=== PATIENT | male | born 1955 | race Two or more races ===

== ENCOUNTER 2024-04-18 09:35 | Inpatient (IN) | payer MEDICARE ==
[~2024-04-18] VITALS: Ht 188 cm; Wt 95.5 kg
--- NOTE | 2024-04-18 10:03 | ED.PDOC ---
General HPI Comments 69 year old male presents to the ED with chief complaint of hematuria. Patient reports that he started to experience hematuria since last night with no pain. Patient relays he had similar hematuria 2 years ago and was diagnosed with cancer of the left kidney, eventually having a left nephrectomy performed. Patient denies any dysuria, abdominal pain, fever, chills, dizziness, or N/V/D. Chief Complaint: Urinary Time Seen by MD: 09:57 Reviewed notes: Nurses Notes, Medications, Allergies Allergies: Coded Allergies: NO KNOWN ALLERGIES (Unverified , 01/06/18) Home Meds No Active Prescriptions or Reported Meds Information Source: Patient Mode of Arrival: Ambulatory Severity: Moderate Inability to void: None Timing: Hours Duration: Since onset Prehospital treatment: None Onset: Spontaneous Symptoms: Hematuria History of: None Location: None Penile discharge: None Modifying factors: None associated signs and symptoms: Hematuria Past Medical History PAST MEDICAL HISTORY: Cancer (Kidney), High Lipids Surgical History (Other): Left hip replacement, Left nephrectomy Family History Family History: Reviewed,noncontributory to illness, Unknown Social History Smoker: Cigarettes Alcohol: Occasionally Drugs: Denies Drug Use Lives In: Home Constitutional: denies: chills, diaphoresis, fatigue, fever, malaise, sweats, weakness, others EENTM: denies: blurred vision, double vision, ear bleeding, ear discharge, ear drainage, ear pain, ear ringing, eye pain, eye redness, hearing loss, mouth pain, mouth swelling, nasal discharge, nose bleeding, nose congestion, nose pain, photophobia, tearing, throat pain, throat swelling, voice changes, others Respiratory: denies: cough, hemoptysis, orthopnea, SOB at rest, shortness of breath, SOB with excertion, stridor, wheezing, others Cardiovascular: denies: chest pain, dizzy spells, diaphoresis, Dyspnea on exertion, edema, irregular heart beat, left arm pain, lightheadedness, palpitations, PND, syncope, others Gastrointestinal: denies: abdomen distended, abdominal pain, blood streaked bowels, constipated, diarrhea, dysphagia, difficulty swallowing, hematemesis, melena, nausea, poor appetite, poor fluid intake, rectal bleeding, rectal pain, vomiting, others Genitourinary: reports: hematuria; denies: burning, dysuria, flank pain, frequency, incontinence, penile discharge, penile sore, pain, testicle pain, testicle swelling, urgency, others Neurological: denies: dizziness, fainting, headache, left sided numbness, left sided weakness, numbness, paresthesia, pre-existing deficit, right sided numbness, right sided weakness, seizure, speech problems, tingling, tremors, weakness, others Musculoskeletal: denies: back pain, gout, joint pain, joint swelling, muscle pain, muscle stiffness, neck pain, others Integumetry: denies: bruises, change in color, change in hair/nails, dryness, laceration, lesions, lumps, rash, wounds, others Allergic/Immunocompromised: denies: Difficulty Healing, Frequent Infections, Hives, Itching, others Hematologic/Lymphatic: denies: anemia, blood clots, easy bleeding, easy bruising, swollen glands, others Endocrine: denies: excessive hunger, excessive sweating, excessive thirst, excessive urination, flushing, intolerance to cold, intolerance to heat, unexplained weight gain, unexplained weight loss, others Psychiatric: denies: anxiety, bipolar disorder, depression, hopeless, panic disorder, schizophrenia, sleepless, suicidal, others All Other Systems: Reviewed and Negative Physical Exam General Appearance: Moderate Distress, Normal HEENT: Normal ENT Inspection, PERRL/EOMI Neck: Full Range of Motion, Non-Tender, Normal, Normal Inspection Respiratory: Chest Non-Tender, Lungs Clear, No Accessory Muscle Use, No Respiratory Distress, Normal Breath Sounds Cardiovascular: No Edema, No JVD, No Murmur, No Gallop, Normal Peripheral Pulses, Regular Rate/Rhythm Breast Exam: Deferred Gastrointestinal: No Organomegaly, Non Tender, No Pulsatile Mass, Normal Bowel Sounds, Soft Genitalia: Deferred Pelvic: Deferred Rectal: Deferred Extremities: No calf tenderness, Normal capillary refill, Normal inspection, Normal range of motion, Non-tender, No pedal edema Musculoskeletal : Apperance: Normal Neurologic: Alert, 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 Was a procedure done?: No Differential Diagnosis Kidney stone (Female): Musculoskeletal pain, Urinary obstruction, Urolithiasis X-Ray, Labs, Meds, VS Vital Signs Date Time Temp Pulse Resp B/P (MAP) Pulse Ox O2 Delivery O2 Flow Rate FiO2 04/18/24 12:00 59 16 97 Room Air* 0 21 04/18/24 11:30 98.8 59 16 114/83 (93) 97 98.8 04/18/24 09:51 98.1 68 18 122/68 (86) 99 Lab Test 04/18/24 10:22 04/18/24 10:06 Range/Units White Blood Count 7.1 4.4-10.8 10^3/uL Red Blood Count 3.99 L 4.5-5.90 10^6/uL Hemoglobin 12.9 L 13.5-17.5 g/dL Hematocrit 37.6 L 41.0-53.0 % Mean Corpuscular Volume 94.3 80.0-100.0 fL Mean Corpuscular Hemoglobin 32.3 H 28.0-32.0 pg Mean Corpuscular Hemoglobin Concent 34.3 32.0-36.0 g/dL Red Cell Distribution Width 13.3 11.8-14.3 % Platelet Count 138 L 140-450 10^3/uL Mean Platelet Volume 8.3 6.9-10.8 fL Neutrophils (%) (Auto) 66.8 37.0-80.0 % Lymphocytes (%) (Auto) 24.4 10.0-50.0 % Monocytes (%) (Auto) 6.4 0.0-12.0 % Eosinophils (%) (Auto) 2.0 0.0-7.0 % Basophils (%) (Auto) 0.4 0.0-2.0 % Neutrophils # (Auto) 4.8 1.6-8.6 10 ^3/uL Lymphocytes # (Auto) 1.7 0.4-5.4 10 ^3/uL Monocytes # (Auto) 0.5 0-1.3 10 ^3/uL Eosinophils # (Auto) 0.1 0-0.8 10 ^3/uL Basophils # (Auto) 0 0-0.2 10 ^3/uL Nucleated Red Blood Cells 0.1 % Sodium Level 136 136-145 mmol/L Potassium Level 4.7 3.5-5.1 mmol/L Chloride Level 100 98-107 mmol/L Carbon Dioxide Level 29 20-31 mmol/L Anion Gap 7 5-15 Blood Urea Nitrogen 27 H 9-23 mg/dL Creatinine 2.01 H 0.700-1.30 mg/dL Glomerular Filtration Rate Calc 35 >90 mL/min BUN/Creatinine Ratio 13.4 10.0-20.0 Serum Glucose 505 *H 74-106 mg/dL Calcium Level 10.4 8.7-10.4 mg/dL Urine Color Light-orange Yellow Urine Clarity Turbid H Clear Urine pH 5.5 5.0-9.0 Urine Specific [place] 1.025 1.001-1.035 Urine Protein 1+ H Negative Urine Ketones Negative Negative Urine Blood 3+ H Negative /uL Urine Nitrite Negative Negative Urine Bilirubin Negative Negative Urine Urobilinogen Normal Negative mg/dL Urine Leukocyte Esterase 2+ Negative /uL Urine RBC 133 0 - 3 /hpf Urine WBC 264 0 - 3 /hpf Urine WBC Clumps Present None Seen /hpf Urine Squamous Epithelial Cells Few <5 /hpf Urine Bacteria None seen None Seen /hpf Urine Hyaline Casts Few 0 - 2 /lpf Urine Glucose 4+ H Normal mg/dL Current Medications Medications (Trade) Dose Ordered Sig/Jessica Route Start Time Stop Time Status Last Admin Piperacillin Sod/ Tazobactam Sod 100 ml @ 100 mls/hr ONCE ONCE IV 04/18/24 11:45 04/18/24 12:44 DC 04/18/24 11:54 Insulin Human Regular (InsuLIN R) 10 units ONCE ONCE IV 04/18/24 11:45 04/18/24 11:46 DC 04/18/24 11:56 Sodium Chloride 1,000 ml @ 1,000 mls/hr Q1H ONCE IV 04/18/24 11:45 04/18/24 12:44 DC 04/18/24 11:55 Patient alert. Complaining of bright red blood per urine. Vitals stable. Answering all questions. Kidney function elevated. He does not take care himself. WBC within normal limits. Blood sugar elevated. Establish intravenous access. Was given fluids. Was given Zosyn. Possible urinary tract infection. Reviewed his history. Was given insulin. Explained to the patient. Continue cardiac monitoring. Time of 1ST Reevaluation: 10:57 Reevaluation 1ST: Unchanged Patient Education/Counseling: Diagnosis, Treatment Family Education/Counseling: No Family Present Additional Information I reviewed the following notes from patient's past medical encounters: Left hip fracture 01/06/18 The following tests were ordered, and results were reviewed by me: BMP, UA, CBC I discussed treatment and results with medical personnel. Departure 1 Departure Time of Disposition: 11:32 Impression: Primary Impression: Uncontrolled diabetes mellitus Qualified Codes: E13.65 - Other specified diabetes mellitus with hyperglycemia Disposition: ADMITTED INPATIENT Admit to: Med Surg Condition: Guarded e-Prescriptions No Active Prescriptions or Reported Meds Critical Care Note Critical Care Time?: Yes (45 min-critical care time only) Stability Stability form required: No Heart Score Heart Score: Heart Score Response (Comments) Value History N/A 0 EKG N/A 0 Age N/A 0 Risk Factors N/A 0 Troponin N/A 0 Total 0 I personally scribed for JOSE FRANCISCO ALVARENGA MD ([email or web address]) on 04/18/24 at 10:03. Electronically submitted by Edu Maya ([email or web address]). I personally scribed for JOSE FRANCISCO ALVARENGA MD ([email or web address]) on 04/18/24 at 10:03. Electronically submitted by Edu Maya ([email or web address]). I personally scribed for JOSE FRANCISCO ALVARENGA MD ([email or web address]) on 04/18/24 at 17:13. Electronically submitted by Haylee Quijano ([email or web address]). JOSE FRANCISCO ALVARENGA MD Apr 18, 2024 10:03
[2024-04-18 10:48] LABS: Chloride 100 mmol/L (98-107)
[2024-04-18 10:49] LABS: Potassium 4.7 mmol/L (3.5-5.1)
[2024-04-18 10:50] LABS: Anion Gap 7 (5-15); Carbon Dioxide 29 mmol/L (20-31)
[2024-04-18 10:53] LABS: Calcium 10.4 mg/dL (8.7-10.4); Sodium 136 mmol/L (136-145)
[2024-04-18 10:56] LABS: BUN/Creatinine Ratio 13.4 (10.0-20.0); Blood Urea Nitrogen 27 mg/dL (9-23); Glucose 505 mg/dL (74-106)
[2024-04-18 10:56] LABS: Urine Bacteria None Seen /hpf (None Seen)
[2024-04-18 10:58] LABS: Basophils # (auto) 0 10 ^3/uL (0-0.2); Basophils % (auto) 0.4 % (0.0-2.0); Eosinophils # (auto) 0.1 10 ^3/uL (0-0.8); Hematocrit 37.6 % (41.0-53.0); Hemoglobin 12.9 g/dL (13.5-17.5); Lymphocytes # (auto) 1.7 10 ^3/uL (0.4-5.4); Lymphocytes % (auto) 24.4 % (10.0-50.0); Mean Corpuscular Hemoglobin 32.3 pg (28.0-32.0); Mean Corpuscular Hgb Conc. 34.3 g/dL (32.0-36.0); Mean Corpuscular Volume 94.3 fL (80.0-100.0); Monocytes # (auto) 0.5 10 ^3/uL (0-1.3); Monocytes % (auto) 6.4 % (0.0-12.0); Neutrophils # (auto) 4.8 10 ^3/uL (1.6-8.6); Neutrophils % (auto) 66.8 % (37.0-80.0); Nucleated Red Blood Cells % 0.1 %; Platelet Count (auto) 138 10^3/uL (140-450); Red Blood Cells 3.99 10^6/uL (4.5-5.90); Red Cell Distribution Width 13.3 % (11.8-14.3); White Blood Cell 7.1 10^3/uL (4.4-10.8)
[2024-04-18 11:47] LABS: Urine Blood 3+ /uL (Negative); Urine Clarity Turbid (Clear); Urine Color Light-Orange (Yellow); Urine Hyaline Cast FEW /lpf (0 - 2); Urine Protein, UAD 1+ (Negative); Urine Specific Gravity 1.025 (1.001-1.035); Urine Squamous Epithelial Cell FEW /hpf (<5); Urine Urobilinogen Normal (Negative); Urine WBC 264 /hpf (0 - 3); Urine WBC Clumps PRESENT /hpf (None Seen); Urine pH 5.5 (5.0-9.0)
[2024-04-18] MEDS: PIPERACILLIN-TAZOB 3.375GM 100 ML IV ONE (11:54)
[2024-04-18] MEDS: SODIUM CHLORIDE 0.9% 1,000 ML IV ONE (11:55)
[2024-04-18] MEDS: InsuLIN REG 1unit/0.01ml Soln (100units/ml) IV ONE (11:56)
[2024-04-18 12:00] VITALS: PULSE 59; RESP 16; O2SAT 97
[2024-04-18 17:50] VITALS: BP 165/58; PULSE 58; RESP 17; TEMP 98.8; O2SAT 94
--- NOTE | 2024-04-18 17:53 | DVHHP2 ---
History of Present Illness Reason for Visit: Hematuria History of Present Illness Mateo Solomon is a 69-year-old male with past medical history of hyperlipidemia, diabetes, left kidney cancer, left nephrectomy, and left hip replacements who presents to the ED for hematuria x1 day. Patient reports that he takes his medications and is compliant with that. 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 Patient denies any fevers, chills, chest pain, shortness of breath, abdominal pain, back pain, nausea, vomiting, diarrhea, lightheadedness, and dizziness. Cardiovascular: hyperipidemia Renal/: Other (Left kidney cancer) Endocrine: Diabetes Past Surgical History: Other Past Surgical History Left nephrectomy left hip replacement Family History: None Smoke: No ALCOHOL: none Drugs: None Lives: Alone Domestic Violence: Neg Review of Systems Constitutional: No: Fever, Chills, Sweats, Weakness, Malaise, Other Eyes: No: Pain, Vision change, Conjunctivae inflammation, Eyelid inflammation, Other, Redness ENT: No: Ear pain, Ear discharge, Nose pain, Nose discharge, Nose congestion, Mouth pain, Mouth swelling, Throat pain, Throat swelling, Other Respiratory: No: Cough, Dry, Shortness of breath, SOB with excertion, Wheezing, Hemoptysis, Pleuritic Pain, Sputum, Wheezing, Other Cardiovascular: No: Chest Pain, Palpitations, Orthopnea, Paroxysmal Noc. Dyspnea, Edema, Lt Headedness, Other Gastrointestinal: No: Nausea, Vomiting, Abdominal Pain, Diarrhea, Constipation, Melena, Hematochezia, Other Genitourinary: No Dysuria, No Frequency, No Incontinence; Hematuria; No Retention, No Other Musculoskeletal: No: other, neck pain, shoulder pain, arm pain, back pain, hand pain, leg pain, foot pain Skin: No: Rash, Lesions, Jaundice, Bruising, Other Neurological: No: Weakness, Numbness, Incoordination, Change in speech, C onfusion, Seizures, Other Allergies: Coded Allergies: NO KNOWN ALLERGIES (Unverified , 01/06/18) Exam Vital Signs Vital Signs Date Time Temp Pulse Resp B/P (MAP) Pulse Ox O2 Delivery O2 Flow Rate FiO2 04/18/24 12:00 59 16 97 Room Air* 0 21 12/28/24 11:30 98.8 114/83 (93) 98.8 General Appearance: Alert, Oriented X3, Cooperative, No acute distress HEENT: Atraumatic, PERRLA, EOMI, Mucous membr. moist/pink Respiratory: Clear to auscultation, Normal air movement Cardiovascular: Regular rate, Normal S1, Normal S2, No murmurs Abdominal: Normal bowel sounds, Soft, No tenderness, No hepatospenomegaly, No masses Extremities: No clubbing, No cyanosis, No edema, Normal pulses, No tenderness/swelling Skin: No rashes, No breakdown, No significant lesion Neuro: Normal gait, Normal speech, Strength at 5/5 X4 ext, Normal tone, Sensation intact Psych/Mental Status: Mental status NL, Mood NL Labs/Xrays Labs Test 04/18/24 10:22 04/18/24 10:06 Range/Units White Blood Count 7.1 4.4-10.8 10^3/uL Red Blood Count 3.99 L 4.5-5.90 10^6/uL Hemoglobin 12.9 L 13.5-17.5 g/dL Hematocrit 37.6 L 41.0-53.0 % Mean Corpuscular Volume 94.3 80.0-100.0 fL Mean Corpuscular Hemoglobin 32.3 H 28.0-32.0 pg Mean Corpuscular Hemoglobin Concent 34.3 32.0-36.0 g/dL Red Cell Distribution Width 13.3 11.8-14.3 % Platelet Count 138 L 140-450 10^3/uL Mean Platelet Volume 8.3 6.9-10.8 fL Neutrophils (%) (Auto) 66.8 37.0-80.0 % Lymphocytes (%) (Auto) 24.4 10.0-50.0 % Monocytes (%) (Auto) 6.4 0.0-12.0 % Eosinophils (%) (Auto) 2.0 0.0-7.0 % Basophils (%) (Auto) 0.4 0.0-2.0 % Neutrophils # (Auto) 4.8 1.6-8.6 10 ^3/uL Lymphocytes # (Auto) 1.7 0.4-5.4 10 ^3/uL Monocytes # (Auto) 0.5 0-1.3 10 ^3/uL Eosinophils # (Auto) 0.1 0-0.8 10 ^3/uL Basophils # (Auto) 0 0-0.2 10 ^3/uL Nucleated Red Blood Cells 0.1 % Sodium Level 136 136-145 mmol/L Potassium Level 4.7 3.5-5.1 mmol/L Chloride Level 100 98-107 mmol/L Carbon Dioxide Level 29 20-31 mmol/L Anion Gap 7 5-15 Blood Urea Nitrogen 27 H 9-23 mg/dL Creatinine 2.01 H 0.700-1.30 mg/dL Glomerular Filtration Rate Calc 35 >90 mL/min BUN/Creatinine Ratio 13.4 10.0-20.0 Serum Glucose 505 *H 74-106 mg/dL Calcium Level 10.4 8.7-10.4 mg/dL Urine Color Light-orange Yellow Urine Clarity Turbid H Clear Urine pH 5.5 5.0-9.0 Urine Specific [place] 1.025 1.001-1.035 Urine Protein 1+ H Negative Urine Ketones Negative Negative Urine Blood 3+ H Negative /uL Urine Nitrite Negative Negative Urine Bilirubin Negative Negative Urine Urobilinogen Normal Negative mg/dL Urine Leukocyte Esterase 2+ Negative /uL Urine RBC 133 0 - 3 /hpf Urine WBC 264 0 - 3 /hpf Urine WBC Clumps Present None Seen /hpf Urine Squamous Epithelial Cells Few <5 /hpf Urine Bacteria None seen None Seen /hpf Urine Hyaline Casts Few 0 - 2 /lpf Urine Glucose 4+ H Normal mg/dL Assessment/Plan Assessment/Plan Assessment/Plan: UTI likely secondary to hyperglycemia SHAMAR and CKD 3 Nephro consult IV fluids given by ER Insulin given by ER IV antibiotics UA Elevated creatinine Antiemetics Labs Pain management A.m. 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 History of left kidney cancer Left nephrectomy Follow up outpatient with wall covering installer Chronic hyperlipidemia Continue with home medications FEN/PPX diet IVf ambulating not indicated for dvt ppx PUD ppx not indicated no hx of GERD Admit to med surg Discussed plan of care with patient and nurse Home medications reconciled Plan discussed with: Patient My Orders Orders - LYNDSEY CASANOVA DATA WAREHOUSE ARCHITECT Procedure Category Date Status Time *Rn Branch Maker REFER 04/18/24 Verified Referral 17:37 Hemoglobin A1c LAB 04/18/24 Verified 17:48 Glucose Blood PHA 04/18/24 Verified (Accu-Chek Comfort 20:00 Moderate Insulin Ss PHA 04/18/24 Verified 20:00 Dextrose 50% Syringe PHA 04/18/24 Verified 18:00 *Dr. [facility] CONS 04/18/24 Verified -[place] 17:48 Admit ADMIT 04/18/24 Verified 17:48 Allergies JORDYN 04/18/24 Verified 17:48 Code Status CODE 04/18/24 Verified 17:48 Hydrocodone-Acet PHA 04/18/24 Verified 5/325mg Tab (Lorain 18:00 Ondansetron Hcl PHA 04/18/24 Verified (Zofran) 18:00 Complete Blood Count LAB 04/19/24 Verified 04:00 Comprehensive LAB 04/19/24 Verified Metabolic Panel 04:00 Cardiac DIET 04/18/24 Verified Diet-2gna,Lofat,Lochol Dinner Acetaminophen Tablet PHA 04/18/24 Verified (Tylenol Tablet) 18:00 Zosyn Extended PHA 04/18/24 Verified Infusion 22:00 Date of Service: Apr 18, 2024 Billing Provider: LYNDSEY CASANOVA Common Visit Codes: [id number] INP/OBS CARE (HIGH) LYNDSEY CASANOVA Apr 18, 2024 17:53
[2024-04-18] MEDS ORDERED: DEXTROSE (50%) 50ML SYRG IV PRN (18:00)
[2024-04-18] MEDS ORDERED: SIMV10TA20 PO (18:00)
[2024-04-18] MEDS ORDERED: ONDANSETRON HCL 4 MG/2 ML VIAL IV PRN (18:00)
[2024-04-18] MEDS ORDERED: METO25TA93 PO (18:00)
[2024-04-18] MEDS ORDERED: FIN5T PO (18:00)
[2024-04-18] MEDS ORDERED: TAMS0.4C39 PO (18:00)
--- NOTE | 2024-04-18 18:53 | DVH ---
INDICATION: hematuria TECHNIQUE: Multiple real-time sonographic images of the kidneys and bladder were obtained. COMPARISON: None FINDINGS: The right kidney measures 12.45 cm in length, which is normal in size. There is normal echogenicity o f the right kidney. No hydronephrosis. The left kidney has been surgically removed. No large intraluminal masses are seen in the bladder. Prior to voiding the bladder volume measures volume 220 cc. Patient had no urge to void. Prostate measures 34.6 mL in volume IMPRESSION: 1. Normal sonographic appearance of the right kidney with no hydronephrosis 2. Mildly enlarged prostate
[2024-04-18] MEDS: SODIUM CHLORIDE 0.9% 1,000 ML IV SCH (19:34)
[2024-04-18 21:30] VITALS: BP 150/54; PULSE 52; RESP 18; TEMP 97.6; O2SAT 96
[2024-04-18] MEDS: PIPERACILLIN-TAZOB 3.375GM 100 ML IV SCH (22:00)
[2024-04-18] MEDS: ACCU-CHEK COMFORT CURVE STRIP VI SCH (22:10)
[2024-04-18] MEDS: InsuLIN REG 1unit/0.01ml Soln (100units/ml) SC SCH (22:10)
[2024-04-19] VITALS (7 sets, daily range): BP systolic 107–153; BP diastolic 50–66; PULSE 51–65; RESP 16–20; TEMP 97.5–97.9; O2SAT 92–99
[2024-04-19 06:01] LABS: Basophils # (auto) 0 10 ^3/uL (0-0.2); Basophils % (auto) 0.3 % (0.0-2.0); Eosinophils # (auto) 0.2 10 ^3/uL (0-0.8); Eosinophils % (auto) 2.3 % (0.0-7.0); Hematocrit 33.9 % (41.0-53.0); Hemoglobin 11.7 g/dL (13.5-17.5); Lymphocytes # (auto) 1.8 10 ^3/uL (0.4-5.4); Lymphocytes % (auto) 26.1 % (10.0-50.0); Mean Corpuscular Hemoglobin 32.2 pg (28.0-32.0); Mean Corpuscular Hgb Conc. 34.5 g/dL (32.0-36.0); Mean Corpuscular Volume 93.4 fL (80.0-100.0); Monocytes # (auto) 0.6 10 ^3/uL (0-1.3); Monocytes % (auto) 8.5 % (0.0-12.0); Neutrophils # (auto) 4.4 10 ^3/uL (1.6-8.6); Neutrophils % (auto) 62.8 % (37.0-80.0); Platelet Count (auto) 122 10^3/uL (140-450); Red Blood Cells 3.63 10^6/uL (4.5-5.90); Red Cell Distribution Width 13.4 % (11.8-14.3)
[2024-04-19 06:40] LABS: Alanine Aminotransferase 17 U/L (7-40); Albumin 3.8 g/dL (3.2-4.8); Alkaline Phosphatase 85 U/L (46-116); Anion Gap 8 (5-15); Aspartate Aminotransferase 14 U/L (13-40); BUN/Creatinine Ratio 15.5 (10.0-20.0); Bilirubin, Total 1.1 mg/dL (0.2-1.0); Calcium 9.8 mg/dL (8.7-10.4); Carbon Dioxide 26 mmol/L (20-31); Glucose 97 mg/dL (74-106); Potassium 3.8 mmol/L (3.5-5.1); Sodium 144 mmol/L (136-145); Total Protein 6.5 g/dL (5.7-8.2)
[2024-04-19 06:55] LABS: Blood Urea Nitrogen 27 mg/dL (9-23); Chloride 110 mmol/L (98-107)
--- NOTE | 2024-04-19 14:22 | DVHPN2 ---
Reviewed: Care Plan, H&P, Labs, Medications, Previous Orders, Radiology Changes from previous H/P or p: No Changes Eyes: No Pain, No Vision change, No Conjunctivae inflammation, No Eyelid inflammation, No Other, No Redness ENT: No Ear pain, No Ear discharge, No Nose pain, No Nose discharge, No Nose congestion, No Mouth pain, No Mouth swelling, No Throat pain, No Throat swelling, No Other Cardiovascular: No Chest Pain, No Palpitations, No Orthopnea, No Paroxysmal Noc. Dyspnea, No Edema, No Lt Headedness, No Other Respiratory: No Cough, No Dry, No Shortness of breath, No SOB with excertion, No Wheezing, No Hemoptysis, No Pleuritic Pain, No Sputum, No Other Gastrointestinal: No Nausea, No Vomiting, No Abdominal Pain, No Diarrhea, No Constipation, No Melena, No Hematochezia, No Other Genitourinary: No Dysuria, No Frequency, No Incontinence; Hematuria; No Retention, No Other Musculoskeletal: No other, No neck pain, No shoulder pain, No arm pain, No back pain, No hand pain, No leg pain, No foot pain Skin: No Rash, No Lesions, No Jaundice, No Bruising, No Other Objective Vitals Vital Signs Date Time Temp Pulse Resp B/P (MAP) Pulse Ox O2 Delivery O2 Flow Rate FiO2 04/19/24 12:45 97.6 51 16 152/62 (92) 97 97.6 04/19/24 08:15 Room Air* 0 21 Intake/Output Intake and Output 04/19/24 07:00 Intake Total 460 ml Balance 460 ml Intake Oral 460 ml # Voids 1 Medications Current Medications Medications Dose Ordered Sig/Jessica Route Start Time Stop Time Status Last Admin Dose Admin Diagnostic Test (Pha) 1 strip IQ4HR 04/18/24 20:00 04/19/24 11:41 1 STRIP Insulin Human Regular IQ4HR SC 04/18/24 20:00 04/19/24 11:40 3 UNITS Dextrose 50 ml UD PRN IV 04/18/24 18:00 Acetaminophen/ Hydrocodone Bitart 1 tab Q4HP PRN PO 04/18/24 18:00 Ondansetron HCl 4 mg Q4HP PRN IV 04/18/24 18:00 Acetaminophen 650 mg Q6HP PRN PO 04/18/24 18:00 Piperacillin Sod/ Tazobactam Sod 100 ml @ 25 mls/hr Q8HR IV 04/18/24 22:00 04/19/24 05:25 25 MLS/HR Sodium Chloride 1,000 ml @ 75 mls/hr [id number] IV 04/18/24 18:00 04/18/24 19:34 75 MLS/HR Laboratory Results Laboratory Tests 04/19/24 05:34 Chemistry Test 04/19/24 05:34 Albumin 3.8 g/dL (3.2-4.8) Calcium Level 9.8 mg/dL (8.7-10.4) Total Protein 6.5 g/dL (5.7-8.2) LFT Test 04/19/24 05:34 Alanine Aminotransferase (ALT) 17 U/L (7-40) Alkaline Phosphatase 85 U/L (46-116) Aspartate Amino Transferase (AST) 14 U/L (13-40) Total Bilirubin 1.1 mg/dL (0.2-1.0) H Urinalysis Test 04/18/24 10:06 Urine Color Light-orange (Yellow) Urine Clarity Turbid (Clear) H Urine pH 5.5 (5.0-9.0) Urine Specific [place] 1.025 (1.001-1.035) Urine Protein 1+ (Negative) H Urine Ketones Negative (Negative) Urine Blood 3+ /uL (Negative) H Urine Nitrite Negative (Negative) Urine Bilirubin Negative (Negative) Urine Urobilinogen Normal mg/dL (Negative) Urine Leukocyte Esterase 2+ /uL (Negative) Urine RBC 133 /hpf (0 - 3) Urine WBC 264 /hpf (0 - 3) Urine WBC Clumps Present /hpf (None Seen) Urine Squamous Epithelial Cells Few /hpf (<5) Urine Bacteria None seen /hpf (None Seen) Urine Hyaline Casts Few /lpf (0 - 2) Urine Glucose 4+ mg/dL (Normal) H Labs and/or images reviewed: Labs reviewed by me, Image(s) reviewed by me Assessment/Plan Assessment/Plan Hematuria kidney ultrasound shows absent left kidney, CT abdomen pelvis without contrast ordered, urology consult by History of cancer left kidney status post left nephrectomy 2 years ago, received 22 dose of chemotherapy by Dr[address] Harleen Malhotra Hypercholesterolemia Uncontrolled diabetes with blood sugar 505 A1c 11.8: Insulin aggressive sliding scale, diabetic education UTI: Rocephin blood cultures urine cultures Enlarged prostate, scheduled for surgery by his urologist in April per patient Time spent 65 minutes Condition guarded Patient is full code Advanced care planning time 20 minutes Patient lives alone Plan discussed with: Patient My Orders Orders - SUSI COLON MD Procedure Category Date Status Time Blood Culture KAVON 04/19/24 Logged 13:47 Urine Bacterial KAVON 04/19/24 Logged Culture 13:47 Ct Ab Pel Wo Con-No CT 04/19/24 Logged Oral Or Iv 13:48 * Urology Consult CONS 04/19/24 Transmitted 13:49 Date of Service: Apr 19, 2024 Billing Provider: SUSI COLON MD Common Visit Codes: [id number] CARE 30-74 MIN SUSI COLON MD Apr 19, 2024 14:22
[2024-04-19] MEDS: cefTRIAXone 1GM/50ML D5W 50 ML IV ONE (15:26)
--- NOTE | 2024-04-19 15:47 | DVHINCON2 ---
Date of service: Apr 19, 2024 Referring Physician Rani Cote NP Reason for Consultation acute kidney injury History of Present Illness Mr Solomon is a 69-year-old male with known history of solitary right kidney , CKD 3, presented for further evaluation and management of hematuria. He denies associated pain, fever, chills. He does admit to intermittent incontinence. His urologist has planned what appears to be a TURP in April. He is seen in his room awake alert conversant and in no acute distress. His ultrasound of the right kidney was essentially unremarkable. Past Medical History CKD 3 Renal cell carcinoma status post left nephrectomy Allergies: Coded Allergies: NO KNOWN ALLERGIES (Unverified , 01/06/18) Home Meds Reported Medications Metoprolol Succinate (Metoprolol Succinate Er) 25 Mg Tab, 0.5 TAB PO DAILY 04/18/24 Finasteride (Finasteride) 5 Mg Tab, 1 TAB PO DAILY 04/18/24 Tamsulosin Hcl (Tamsulosin Hcl) 0.4 Mg Cap, 1 CAP PO BID 04/18/24 Simvastatin (Simvastatin) 10 Mg Tab, 1 TAB PO 04/18/24 Current Medications Current Medications Medications (Trade) Dose Ordered Sig/Jessica Route PRN Reason Start Time Stop Time Status Last Admin Diagnostic Test (Pha) (Accu-Chek Comfort Curve T) 1 strip IQ4HR 04/18/24 20:00 04/19/24 11:41 Insulin Human Regular (InsuLIN R) IQ4HR SC 04/18/24 20:00 04/19/24 11:40 Dextrose 50 ml UD PRN IV Blood Sugar LESS THAN 60 04/18/24 18:00 Acetaminophen/ Hydrocodone Bitart ([place] 5/325MG Tab) 1 tab Q4HP PRN PO MODERATE PAIN (4-6 PAIN SCALE) 04/18/24 18:00 Ondansetron HCl (Zofran) 4 mg Q4HP PRN IV NAUSEA / VOMITING 04/18/24 18:00 Acetaminophen (Tylenol Tablet) 650 mg Q6HP PRN PO PAIN SCALE 1-3 OR TEMP>100.4 04/18/24 18:00 Piperacillin Sod/ Tazobactam Sod 100 ml @ 25 mls/hr Q8HR IV 04/18/24 22:00 04/19/24 14:30 DC 04/19/24 05:25 Sodium Chloride 1,000 ml @ 75 mls/hr [id number] IV 04/18/24 18:00 04/18/24 19:34 Ceftriaxone Sodium 50 ml @ 100 mls/hr DAILY@09 IV 04/20/24 09:00 Family History: FH: pancreatic cancer G8 FATHER Review of Systems as per history of present illness otherwise all systems are reviewed and are noncontributory H&P Exam Vital Signs/I&O Vital Sign Date Time Temp Pulse Resp B/P (MAP) Pulse Ox O2 Delivery O2 Flow Rate FiO2 04/19/24 12:45 97.6 51 16 152/62 (92) 97 97.6 04/19/24 08:15 Room Air* 0 21 Intake and Output 04/18/24 04/19/24 19:00 07:00 Intake Total 460 ml Balance 460 ml Intake Oral 460 ml # Voids 1 Physical Exam gen: nad heent: mmm lungs: ca cs: no rub abd: soft ext: no edema skin: no rash neuro: awake and alert Labs/Diagnostic Data Labs/Diagnostic Data Laboratory Tests Test 04/19/24 11:23 04/19/24 08:07 04/19/24 05:34 04/19/24 05:23 Range/Units POC Glucose 179 H 178 H 91 70-106 mg/dl White Blood Count 7.0 4.4-10.8 10^3/uL Red Blood Count 3.63 L 4.5-5.90 10^6/uL Hemoglobin 11.7 L 13.5-17.5 g/dL Hematocrit 33.9 L 41.0-53.0 % Mean Corpuscular Volume 93.4 80.0-100.0 fL Mean Corpuscular Hemoglobin 32.2 H 28.0-32.0 pg Mean Corpuscular Hemoglobin Concent 34.5 32.0-36.0 g/dL Red Cell Distribution Width 13.4 11.8-14.3 % Platelet Count 122 L 140-450 10^3/uL Mean Platelet Volume 7.8 6.9-10.8 fL Neutrophils (%) (Auto) 62.8 37.0-80.0 % Lymphocytes (%) (Auto) 26.1 10.0-50.0 % Monocytes (%) (Auto) 8.5 0.0-12.0 % Eosinophils (%) (Auto) 2.3 0.0-7.0 % Basophils (%) (Auto) 0.3 0.0-2.0 % Neutrophils # (Auto) 4.4 1.6-8.6 10 ^3/uL Lymphocytes # (Auto) 1.8 0.4-5.4 10 ^3/uL Monocytes # (Auto) 0.6 0-1.3 10 ^3/uL Eosinophils # (Auto) 0.2 0-0.8 10 ^3/uL Basophils # (Auto) 0 0-0.2 10 ^3/uL Nucleated Red Blood Cells 0.0 % Sodium Level 144 # 136-145 mmol/L Potassium Level 3.8 3.5-5.1 mmol/L Chloride Level 110 #H 98-107 mmol/L Carbon Dioxide Level 26 20-31 mmol/L Anion Gap 8 5-15 Blood Urea Nitrogen 27 H 9-23 mg/dL Creatinine 1.74 H 0.700-1.30 mg/dL Glomerular Filtration Rate Calc 41 >90 mL/min BUN/Creatinine Ratio 15.5 10.0-20.0 Serum Glucose 97 # 74-106 mg/dL Calcium Level 9.8 8.7-10.4 mg/dL Total Bilirubin 1.1 H 0.2-1.0 mg/dL Aspartate Amino Transferase (AST) 14 13-40 U/L Alanine Aminotransferase (ALT) 17 7-40 U/L Alkaline Phosphatase 85 46-116 U/L Total Protein 6.5 5.7-8.2 g/dL Albumin 3.8 3.2-4.8 g/dL Test 04/19/24 01:16 04/18/24 21:44 04/18/24 10:22 04/18/24 10:06 Range/Units POC Glucose 207 H 321 H 70-106 mg/dl White Blood Count 7.1 4.4-10.8 10^3/uL Red Blood Count 3.99 L 4.5-5.90 10^6/uL Hemoglobin 12.9 L 13.5-17.5 g/dL Hematocrit 37.6 L 41.0-53.0 % Mean Corpuscular Volume 94.3 80.0-100.0 fL Mean Corpuscular Hemoglobin 32.3 H 28.0-32.0 pg Mean Corpuscular Hemoglobin Concent 34.3 32.0-36.0 g/dL Red Cell Distribution Width 13.3 11.8-14.3 % Platelet Count 138 L 140-450 10^3/uL Mean Platelet Volume 8.3 6.9-10.8 fL Neutrophils (%) (Auto) 66.8 37.0-80.0 % Lymphocytes (%) (Auto) 24.4 10.0-50.0 % Monocytes (%) (Auto) 6.4 0.0-12.0 % Eosinophils (%) (Auto) 2.0 0.0-7.0 % Basophils (%) (Auto) 0.4 0.0-2.0 % Neutrophils # (Auto) 4.8 1.6-8.6 10 ^3/uL Lymphocytes # (Auto) 1.7 0.4-5.4 10 ^3/uL Monocytes # (Auto) 0.5 0-1.3 10 ^3/uL Eosinophils # (Auto) 0.1 0-0.8 10 ^3/uL Basophils # (Auto) 0 0-0.2 10 ^3/uL Nucleated Red Blood Cells 0.1 % Sodium Level 136 136-145 mmol/L Potassium Level 4.7 3.5-5.1 mmol/L Chloride Level 100 98-107 mmol/L Carbon Dioxide Level 29 20-31 mmol/L Anion Gap 7 5-15 Blood Urea Nitrogen 27 H 9-23 mg/dL Creatinine 2.01 H 0.700-1.30 mg/dL Glomerular Filtration Rate Calc 35 >90 mL/min BUN/Creatinine Ratio 13.4 10.0-20.0 Serum Glucose 505 *H 74-106 mg/dL Hemoglobin A1c 11.8 H <5.7 % A1C Calcium Level 10.4 8.7-10.4 mg/dL Urine Color Light-orange Yellow Urine Clarity Turbid H Clear Urine pH 5.5 5.0-9.0 Urine Specific [place] 1.025 1.001-1.035 Urine Protein 1+ H Negative Urine Ketones Negative Negative Urine Blood 3+ H Negative /uL Urine Nitrite Negative Negative Urine Bilirubin Negative Negative Urine Urobilinogen Normal Negative mg/dL Urine Leukocyte Esterase 2+ Negative /uL Urine RBC 133 0 - 3 /hpf Urine WBC 264 0 - 3 /hpf Urine WBC Clumps Present None Seen /hpf Urine Squamous Epithelial Cells Few <5 /hpf Urine Bacteria None seen None Seen /hpf Urine Hyaline Casts Few 0 - 2 /lpf Urine Glucose 4+ H Normal mg/dL Assessment IMP: 1) hemodynamically mediated acute kidney injury, possible prerenal etiology 2) CKD III in setting of solitary right kidney 3) history of transient painless gross hematuria 4) prostatic enlargement 5) hypertension REC: - Agree with current IV fluids GFR improved - Imaging without signs of obstructive uropathy involving the solitary right kidney. - Mr. Solomon has established care with urology with reported plans for a TURP in April. - General recommendations to avoid NSAIDs, intravenous contrast studies if able - Will continue to follow closely with you. Thank you for the consultation. Plan discussed with: Patient JEANNA MOORE MD Apr 19, 2024 15:47
--- NOTE | 2024-04-19 16:04 | DVH ---
Exam: CT CT AB PEL WO CON-NO ORAL OR IV History: Hematuria Comparison Study: None available at time of dictation. TECHNIQUE: Multidetector CT of the abdomen was performed from lung bases to pubic symphysis. Imaging was performed without IV contrast. Axial, coronal and sagittal multiplanar reformats were obtained fr om the axial data set by the technologist. Radiation Dose Information: CT Dose: CTDI volume is 20.48 mGy. Dose-length product is 1267.09 mGy*cm FINDINGS: Evaluation of solid organs is limited due to lack of intravenous contrast use. Findings: Lung Bases: No acute or significant lung base finding. Normal heart size. No pleural or pericardial effusion. Coronary artery calcification Liver: The liver is normal in size. No focal lesions. Gallbladder and Biliary Tree: Cholelithiasis Spleen: Unremarkable Pancreas: The pancreas is grossly normal in appearance. Adrenal Glands: Unremarkable Kidneys: Left kidney is absent correlate for surgical nephrectomy. Right kidney appears normal with n o nephrolithiasis. Bladder: Grossly unremarkable for degree of distention. Bowel: The stomach is grossly normal in appearance. Small bowel and colon are normal in caliber and d istribution. 6.8 x 5.8 cm stool-filled rectosigmoid colon. Correlate for possible fecal impaction The appendix is not visualized; however, no secondary findings of acute appendicitis identified. Ascites: Absent Lymphadenopathy: No mesenteric, retroperitoneal or periportal lymphadenopathy. Abdominal Wall and Mesentery: Unremarkable. Vasculature: The visualized abdominal aorta is normal in size and caliber. Evaluation of abdominal a nd pelvic vessels is limited due to lack of intravenous contrast. Pelvic Organs: Unremarkable Musculoskeletal: No aggressive focal bony lesions, acute fractures or dislocation. Internal fixation device proximal left femur Soft tissues: Unremarkable IMPRESSION: 1. Left kidney is not visualized. Correlate with surgical history. Right kidney shows no nephrolithia sis or hydronephrosis. 2. Cholelithiasis 3. 6.8 x 5.8 cm stool-filled rectosigmoid colon correlate for fecal impaction. 4. Bladder wall thickening left greater than right correlate for infection or neoplasm. Radiation optimization: All CT scans at this facility use at least one of these dose optimization te chniques: automated exposure control mA and/or kV adjustment per patient size (includes targeted exa ms where dose is matched to clinical indication) or iterative reconstruction.
[2024-04-19 16:33] LABS: INR 1.04 (0.9-1.15); Partial Thromboplastin Time 25.1 SEC (24.5-34.5)
[2024-04-19] MEDS: ACETAMINOPHEN 325 MG TAB PO PRN (20:50)
[2024-04-20] VITALS (7 sets, daily range): BP systolic 118–170; BP diastolic 46–63; PULSE 49–57; RESP 16–20; TEMP 97.2–97.9; O2SAT 95–97
[2024-04-20 07:11] LABS: Potassium 4.2 mmol/L (3.5-5.1); Sodium 142 mmol/L (136-145)
[2024-04-20 07:12] LABS: Anion Gap 7 (5-15); Calcium 9.3 mg/dL (8.7-10.4); Carbon Dioxide 26 mmol/L (20-31)
[2024-04-20 07:15] LABS: Chloride 109 mmol/L (98-107)
[2024-04-20 07:17] LABS: Glucose 188 mg/dL (74-106)
[2024-04-20 07:18] LABS: BUN/Creatinine Ratio 14.6 (10.0-20.0); Blood Urea Nitrogen 25 mg/dL (9-23)
[2024-04-20] MEDS: cefTRIAXone 1GM/50ML D5W 50 ML IV SCH (08:43)
--- NOTE | 2024-04-20 09:05 | DVHINCON2 ---
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 Ferguson. He is under care of Dr. Harleen Malhotra for chemotherapy. He presented to the ER for c/o hematuria for the past day. His urine is now clear. He has no other complaints at this time. He is pending TURP 05/15/23 Home Meds Reported Medications Metoprolol Succinate (Metoprolol Succinate Er) 25 Mg Tab, 0.5 TAB PO DAILY 04/18/24 Finasteride (Finasteride) 5 Mg Tab, 1 TAB PO DAILY 04/18/24 Tamsulosin Hcl (Tamsulosin Hcl) 0.4 Mg Cap, 1 CAP PO BID 04/18/24 Simvastatin (Simvastatin) 10 Mg Tab, 1 TAB PO 04/18/24 Past Medical History Cardiac: AFIB Hemotology/Oncology: Anemia NOS, Cancer Renal/: UTI, Hematuria, CKD Past Surgical History: Other (left nephroureterectomy, left hip replacement, port a cath) Patient Family History: FH: pancreatic cancer G8 FATHER Smoker: Positive Alocohol: Moderate Review of Systems Genitourinary: Hematuria H&P Exam Vital Signs Vital Signs Date Time Temp Pulse Resp B/P (MAP) Pulse Ox O2 Delivery O2 Flow Rate FiO2 04/20/24 05:00 97.2 53 18 142/46 (78) 96 97.2 04/19/24 20:00 Room Air* 0 21 General Appeara: Well developed, Well nourished, Normal Appearance Neuro/Mental St: Alert, Oriented Appearance: Appropriate appearance, Appropriate insight Eye contact/ Speech: Cooperative, Good eye contact, Normal speech Coordination/Gait: Normal finger->nose, Normal gait, Negative Romberg's sign Skin Exam: Normal inspection, Normal color, Warm/dry Labs/Xrays [address] [address] Ph: [phone] DIAGNOSTIC IMAGING Diagnostic Imaging Report : [id number] Signed PATIENT: TEZ BARRIOS ACCT: [id number] UNIT: [id number] : 1955 LOC: OVERFLOW ROOM / BED: 1019-ER / A AGE / SEX: 69 / M ADM STATUS: ADM IN SERVICE 1750 ORDERING PHYSICIAN: LYNDSEY CASANOVA PROCEDURE(s): KIDUS - KIDNEY REASON: hematuria ORDER NUMBER(s): [id number], ACCESSION NUMBER(s): [id number] INDICATION: hematuria TECHNIQUE: Multiple real-time sonographic images of the kidneys and bladder were obtained. COMPARISON: None FINDINGS: The right kidney measures 12.45 cm in length, which is normal in size. There is normal echogenicity of the right kidney. No hydronephrosis. The left kidney has been surgically removed. No large intraluminal masses are seen in the bladder. Prior to voiding the bladder volume measures volume 220 cc. Patient had no urge to void. Prostate measures 34.6 mL in volume IMPRESSION: 1. Normal sonographic appearance of the right kidney with no hydronephrosis 2. Mildly enlarged prostate ATED BY: STEPHANIE VILLA Jr., DO DICTATED DATE/TIME: 04/18/241849 SIGNED BY: STEPHANIE VILLA Jr., SIGNED DATE/TIME: 04/18/241849 CC: [place] [address] Ph: [phone] DIAGNOSTIC IMAGING Diagnostic Imaging Report : [id number] Signed PATIENT: TEZ BARRIOS ACCT: [id number] UNIT: [id number] : 1955 LOC: CENTRAL ROOM / BED: [facility] / B AGE / SEX: 69 / M ADM STATUS: ADM IN SERVICE 1348 ORDERING PHYSICIAN: SUSI COLON MD PROCEDURE(s): ABPL - CT AB PEL WO CON-NO ORAL OR IV REASON: Hematuria ORDER NUMBER(s): [id number], ACCESSION NUMBER(s): [id number] Exam: CT CT AB PEL WO CON-NO ORAL OR IV History: Hematuria Comparison Study: None available at time of dictation. TECHNIQUE: Multidetector CT of the abdomen was performed from lung bases to pubic symphysis. Imaging was performed without IV contrast. Axial, coronal and sagittal multiplanar reformats were obtained from the axial data set by the technologist. Radiation Dose Information: CT Dose: CTDI volume is 20.48 mGy. Dose-length product is 1267.09 mGy*cm FINDINGS: Evaluation of solid organs is limited due to lack of intravenous contrast use. Findings: Lung Bases: No acute or significant lung base finding. Normal heart size. No pleural or pericardial effusion. Coronary artery calcification Liver: The liver is normal in size. No focal lesions. Gallbladder and Biliary Tree: Cholelithiasis Spleen: Unremarkable Pancreas: The pancreas is grossly normal in appearance. Adrenal Glands: Unremarkable Kidneys: Left kidney is absent correlate for surgical nephrectomy. Right kidney appears normal with no nephrolithiasis. Bladder: Grossly unremarkable for degree of distention. Bowel: The stomach is grossly normal in appearance. Small bowel and colon are normal in caliber and distribution. 6.8 x 5.8 cm stool-filled rectosigmoid colon. Correlate for possible fecal impaction The appendix is not visualized; however, no secondary findings of acute appendicitis identified. Ascites: Absent Lymphadenopathy: No mesenteric, retroperitoneal or periportal lymphadenopathy. Abdominal Wall and Mesentery: Unremarkable. Vasculature: The visualized abdominal aorta is normal in size and caliber. Evaluation of abdominal and pelvic vessels is limited due to lack of intravenous contrast. Pelvic Organs: Unremarkable Musculoskeletal: No aggressive focal bony lesions, acute fractures or dislocation. Internal fixation device proximal left femur Soft tissues: Unremarkable IMPRESSION: 1. Left kidney is not visualized. Correlate with surgical history. Right kidney shows no nephrolithiasis or hydronephrosis. 2. Cholelithiasis 3. 6.8 x 5.8 cm stool-filled rectosigmoid colon correlate for fecal impaction. 4. Bladder wall thickening left greater than right correlate for infection or neoplasm. Radiation optimization: All CT scans at this facility use at least one of these dose optimization techniques: automated exposure control mA and/or kV adjustment per patient size (includes targeted exams where dose is matched to clinical indication) or iterative reconstruction. ATED BY: STEPHANIE VILLA Jr. DO DICTATED DATE/TIME: 04/19/24 1602 SIGNED BY: STEPHANIE VILLA Jr., SIGNED DATE/TIME: 04/19/24 1602 CC: Labs Test 04/20/24 08:35 04/20/24 05:40 04/19/24 15:48 04/19/24 05:34 Range/Units POC Glucose 160 H 70-106 mg/dl Sodium Level 142 136-145 mmol/L Potassium Level 4.2 3.5-5.1 mmol/L Chloride Level 109 H 98-107 mmol/L Carbon Dioxide Level 26 20-31 mmol/L Anion Gap 7 5-15 Blood Urea Nitrogen 25 H 9-23 mg/dL Creatinine 1.71 H 0.700-1.30 mg/dL Glomerular Filtration Rate Calc 42 >90 mL/min BUN/Creatinine Ratio 14.6 10.0-20.0 Serum Glucose 188 H 74-106 mg/dL Calcium Level 9.3 8.7-10.4 mg/dL Prothrombin Time 11.0 9.3-11.8 sec Prothrombin Time INR 1.04 0.9-1.15 Activated Partial Thromboplast Time 25.1 24.5-34.5 SEC White Blood Count 7.0 4.4-10.8 10^3/uL Red Blood Count 3.63 L 4.5-5.90 10^6/uL Hemoglobin 11.7 L 13.5-17.5 g/dL Hematocrit 33.9 L 41.0-53.0 % Mean Corpuscular Volume 93.4 80.0-100.0 fL Mean Corpuscular Hemoglobin 32.2 H 28.0-32.0 pg Mean Corpuscular Hemoglobin Concent 34.5 32.0-36.0 g/dL Red Cell Distribution Width 13.4 11.8-14.3 % Platelet Count 122 L 140-450 10^3/uL Mean Platelet Volume 7.8 6.9-10.8 fL Neutrophils (%) (Auto) 62.8 37.0-80.0 % Lymphocytes (%) (Auto) 26.1 10.0-50.0 % Monocytes (%) (Auto) 8.5 0.0-12.0 % Eosinophils (%) (Auto) 2.3 0.0-7.0 % Basophils (%) (Auto) 0.3 0.0-2.0 % Neutrophils # (Auto) 4.4 1.6-8.6 10 ^3/uL Lymphocytes # (Auto) 1.8 0.4-5.4 10 ^3/uL Monocytes # (Auto) 0.6 0-1.3 10 ^3/uL Eosinophils # (Auto) 0.2 0-0.8 10 ^3/uL Basophils # (Auto) 0 0-0.2 10 ^3/uL Nucleated Red Blood Cells 0.0 % Total Bilirubin 1.1 H 0.2-1.0 mg/dL Aspartate Amino Transferase (AST) 14 13-40 U/L Alanine Aminotransferase (ALT) 17 7-40 U/L Alkaline Phosphatase 85 46-116 U/L Total Protein 6.5 5.7-8.2 g/dL Albumin 3.8 3.2-4.8 g/dL Test 04/18/24 10:22 04/18/24 10:06 Range/Units Hemoglobin A1c 11.8 H <5.7 % A1C Urine Color Light-orange Yellow Urine Clarity Turbid H Clear Urine pH 5.5 5.0-9.0 Urine Specific [place] 1.025 1.001-1.035 Urine Protein 1+ H Negative Urine Ketones Negative Negative Urine Blood 3+ H Negative /uL Urine Nitrite Negative Negative Urine Bilirubin Negative Negative Urine Urobilinogen Normal Negative mg/dL Urine Leukocyte Esterase 2+ Negative /uL Urine RBC 133 0 - 3 /hpf Urine WBC 264 0 - 3 /hpf Urine WBC Clumps Present None Seen /hpf Urine Squamous Epithelial Cells Few <5 /hpf Urine Bacteria None seen None Seen /hpf Urine Hyaline Casts Few 0 - 2 /lpf Urine Glucose 4+ H Normal mg/dL Assessment/Plan Problem List: (1) Solitary kidney, acquired (2) Bladder wall thickening (3) Hematuria (4) Status post chemotherapy Plan urine culture encourage fluids cystoscopy TBA on outpt basis f/u Dr. Ferguson. signing off Plan discussed with: Patient, Other CAMERON DOUGHERTY NP Apr 20, 2024 09:05
--- NOTE | 2024-04-20 09:49 | DVHPN2 ---
Reviewed: Care Plan, H&P, Labs, Medications, Previous Orders, Radiology Changes from previous H/P or p: No Changes Eyes: No Pain, No Vision change, No Conjunctivae inflammation, No Eyelid inflammation, No Other, No Redness ENT: No Ear pain, No Ear discharge, No Nose pain, No Nose discharge, No Nose congestion, No Mouth pain, No Mouth swelling, No Throat pain, No Throat swelling, No Other Cardiovascular: No Chest Pain, No Palpitations, No Orthopnea, No Paroxysmal Noc. Dyspnea, No Edema, No Lt Headedness, No Other Respiratory: No Cough, No Dry, No Shortness of breath, No SOB with excertion, No Wheezing, No Hemoptysis, No Pleuritic Pain, No Sputum, No Other Gastrointestinal: No Nausea, No Vomiting, No Abdominal Pain, No Diarrhea, No Constipation, No Melena, No Hematochezia, No Other Genitourinary: No Dysuria, No Frequency, No Incontinence; Hematuria; No Retention, No Other Musculoskeletal: No other, No neck pain, No shoulder pain, No arm pain, No back pain, No hand pain, No leg pain, No foot pain Skin: No Rash, No Lesions, No Jaundice, No Bruising, No Other Objective Vitals Vital Signs Date Time Temp Pulse Resp B/P (MAP) Pulse Ox O2 Delivery O2 Flow Rate FiO2 04/20/24 08:10 54 18 96 Room Air* 0 21 04/20/24 05:00 97.2 142/46 (78) 97.2 Intake/Output Intake and Output 04/20/24 07:00 Intake Total 540 ml Output Total 1100 ml Balance -560 ml Intake Oral 540 ml Output Urine Total 1100 ml # Bowel Movements 1 Medications Current Medications Medications Dose Ordered Sig/Jessica Route Start Time Stop Time Status Last Admin Dose Admin Diagnostic Test (Pha) 1 strip IQ4HR 04/18/24 20:00 04/20/24 08:43 1 STRIP Insulin Human Regular IQ4HR SC 04/18/24 20:00 04/20/24 08:55 2 UNITS Dextrose 50 ml UD PRN IV 04/18/24 18:00 Acetaminophen/ Hydrocodone Bitart 1 tab Q4HP PRN PO 04/18/24 18:00 Ondansetron HCl 4 mg Q4HP PRN IV 04/18/24 18:00 Acetaminophen 650 mg Q6HP PRN PO 04/18/24 18:00 04/19/24 20:50 650 MG Sodium Chloride 1,000 ml @ 75 mls/hr [id number] IV 04/18/24 18:00 04/19/24 20:40 75 MLS/HR Ceftriaxone Sodium 50 ml @ 100 mls/hr DAILY@09 IV 04/20/24 09:00 04/20/24 08:43 100 MLS/HR Laboratory Results Laboratory Tests 04/19/24 05:34 04/20/24 05:40 Chemistry Test 04/20/24 05:40 Calcium Level 9.3 mg/dL (8.7-10.4) Coagulation Test 04/19/24 15:48 Prothrombin Time 11.0 sec (9.3-11.8) Prothrombin Time INR 1.04 (0.9-1.15) Activated Partial Thromboplast Time 25.1 SEC (24.5-34.5) Urinalysis Test 04/18/24 10:06 Urine Color Light-orange (Yellow) Urine Clarity Turbid (Clear) H Urine pH 5.5 (5.0-9.0) Urine Specific [place] 1.025 (1.001-1.035) Urine Protein 1+ (Negative) H Urine Ketones Negative (Negative) Urine Blood 3+ /uL (Negative) H Urine Nitrite Negative (Negative) Urine Bilirubin Negative (Negative) Urine Urobilinogen Normal mg/dL (Negative) Urine Leukocyte Esterase 2+ /uL (Negative) Urine RBC 133 /hpf (0 - 3) Urine WBC 264 /hpf (0 - 3) Urine WBC Clumps Present /hpf (None Seen) Urine Squamous Epithelial Cells Few /hpf (<5) Urine Bacteria None seen /hpf (None Seen) Urine Hyaline Casts Few /lpf (0 - 2) Urine Glucose 4+ mg/dL (Normal) H Labs and/or images reviewed: Labs reviewed by me, Image(s) reviewed by me Assessment/Plan Assessment/Plan Hematuria kidney ultrasound shows absent left kidney, CT abdomen pelvis without contrast shows fecal impaction, urology consult by appreciated History of cancer left kidney status post left nephrectomy 2 years ago, received 22 dose of chemotherapy by Dr. Harleen Malhotra Hypercholesterolemia Uncontrolled diabetes with blood sugar 505 A1c 11.8: Insulin aggressive sliding scale, diabetic education UTI: Rocephin blood cultures urine cultures Enlarged prostate, scheduled for surgery by his urologist in April per patient Time spent 55 minutes Condition guarded Patient is full code Advanced care planning time 20 minutes Patient lives alone Cystoscopy to be scheduled by Urology Plan discussed with: Patient My Orders Orders - SUSI COLON MD Procedure Category Date Status Time Blood Culture KAVON 04/19/24 In Process 13:47 Urine Bacterial KAVON 04/19/24 Logged Culture 13:47 Ct Ab Pel Wo Con-No CT 04/19/24 Resulted Oral Or Iv 13:48 * Urology Consult CONS 04/19/24 Transmitted 13:49 Ceftriaxone 1gm/50ml PHA 04/20/24 In Process D5w (Rocephin) 09:00 Date of Service: Apr 20, 2024 Billing Provider: SUSI COLON MD Common Visit Codes: [id number] INP/OBS CARE(HIGH) SUSI COLON MD Apr 20, 2024 09:49
--- NOTE | 2024-04-20 10:28 | DVHPN2 ---
Progress Note Date Seen: Apr 20, 2024 Medical Necessity Reason Pt with a Central, PICC or Fol: No Subjective Patient reports: No new complaints Other Systems: Patient seen and examined by myself today in follow-up Objective vital signs Vital Sign Date Time Temp Pulse Resp B/P (MAP) Pulse Ox O2 Delivery O2 Flow Rate FiO2 04/20/24 09:00 97.5 54 18 140/47 (78) 96 97.5 04/20/24 08:10 Room Air* 0 21 Total Intake and Output 04/19/24 04/19/24 04/20/24 15:00 23:00 07:00 Intake Total 300 ml 240 ml Output Total 500 ml 600 ml Balance -200 ml -360 ml medications Current Medications Medications Dose Ordered Sig/Jessica Route Start Time Stop Time Status Last Admin Dose Admin Diagnostic Test (Pha) 1 strip IQ4HR 04/18/24 20:00 04/20/24 08:43 1 STRIP Insulin Human Regular IQ4HR SC 04/18/24 20:00 04/20/24 08:55 2 UNITS Dextrose 50 ml UD PRN IV 04/18/24 18:00 Acetaminophen/ Hydrocodone Bitart 1 tab Q4HP PRN PO 04/18/24 18:00 Ondansetron HCl 4 mg Q4HP PRN IV 04/18/24 18:00 Acetaminophen 650 mg Q6HP PRN PO 04/18/24 18:00 04/19/24 20:50 650 MG Sodium Chloride 1,000 ml @ 75 mls/hr [id number] IV 04/18/24 18:00 04/20/24 10:03 75 MLS/HR Ceftriaxone Sodium 50 ml @ 100 mls/hr DAILY@09 IV 04/20/24 09:00 04/20/24 08:43 100 MLS/HR Examination: LUNGS:Normal, CVS:Normal, MSK:Normal laboratory and microbiology Laboratory Tests 04/20/24 05:40 04/19/24 05:34 Test 04/20/24 05:40 Range/Units Serum Glucose 188 H 74-106 mg/dL Problem List/Assessment/Plan Problem List/Assessment/Plan Acute kidney injury superimposed Chronic Kidney Disease secondary hemodynamic mediated Chronic Kidney Disease stage 3 in setting of solitary right kidney High-grade urothelial carcinoma status post right nephrectomy Uncontrolled diabetes mellitus Hyperglycemia BPH Hypertension Recommendations Kidney function is improving Increased urine output Strict I&Os Insulin sliding scale Blood pressure control Urology on board We will continue to follow Plan discussed with: Patient ALONSO HOOPER MD Apr 20, 2024 10:28
[2024-04-21] VITALS (7 sets, daily range): BP systolic 131–142; BP diastolic 53–66; PULSE 49–64; RESP 16–18; TEMP 97.2–98.2; O2SAT 96–98
[2024-04-21 08:06] LABS: PSA Free 0.26 ng/mL; Prostate Specific Antigen 0.8 ng/mL (0.0-4.0)
--- NOTE | 2024-04-21 08:58 | DVHPN2 ---
Reviewed: Care Plan, H&P, Labs, Medications, Previous Orders, Radiology Changes from previous H/P or p: No Changes Eyes: No Pain, No Vision change, No Conjunctivae inflammation, No Eyelid inflammation, No Other, No Redness ENT: No Ear pain, No Ear discharge, No Nose pain, No Nose discharge, No Nose congestion, No Mouth pain, No Mouth swelling, No Throat pain, No Throat swelling, No Other Cardiovascular: No Chest Pain, No Palpitations, No Orthopnea, No Paroxysmal Noc. Dyspnea, No Edema, No Lt Headedness, No Other Respiratory: No Cough, No Dry, No Shortness of breath, No SOB with excertion, No Wheezing, No Hemoptysis, No Pleuritic Pain, No Sputum, No Other Gastrointestinal: No Nausea, No Vomiting, No Abdominal Pain, No Diarrhea, No Constipation, No Melena, No Hematochezia, No Other Genitourinary: No Dysuria, No Frequency, No Incontinence; Hematuria; No Retention, No Other Musculoskeletal: No other, No neck pain, No shoulder pain, No arm pain, No back pain, No hand pain, No leg pain, No foot pain Skin: No Rash, No Lesions, No Jaundice, No Bruising, No Other Objective Vitals Vital Signs Date Time Temp Pulse Resp B/P (MAP) Pulse Ox O2 Delivery O2 Flow Rate FiO2 04/21/24 05:00 98.0 52 18 132/66 (88) 97 98.0 04/20/24 20:00 Room Air* 0 21 Intake/Output Intake and Output 04/21/24 07:00 Intake Total 1839 ml Output Total 1800 ml Balance 39 ml Intake Oral 789 ml IV Total 1050 ml Output Urine Total 1800 ml # Bowel Movements 1 Medications Current Medications Medications Dose Ordered Sig/Jessica Route Start Time Stop Time Status Last Admin Dose Admin Diagnostic Test (Pha) 1 strip IQ4HR 04/18/24 20:00 04/21/24 05:10 1 STRIP Insulin Human Regular IQ4HR SC 04/18/24 20:00 04/21/24 00:54 3 UNITS Dextrose 50 ml UD PRN IV 04/18/24 18:00 Acetaminophen/ Hydrocodone Bitart 1 tab Q4HP PRN PO 04/18/24 18:00 Ondansetron HCl 4 mg Q4HP PRN IV 04/18/24 18:00 Acetaminophen 650 mg Q6HP PRN PO 04/18/24 18:00 04/19/24 20:50 650 MG Sodium Chloride 1,000 ml @ 75 mls/hr [id number] IV 04/18/24 18:00 04/20/24 23:20 75 MLS/HR Ceftriaxone Sodium 50 ml @ 100 mls/hr DAILY@09 IV 04/20/24 09:00 04/20/24 08:43 100 MLS/HR Laboratory Results Laboratory Tests 04/19/24 05:34 04/20/24 05:40 Urinalysis Test 04/18/24 10:06 Urine Color Light-orange (Yellow) Urine Clarity Turbid (Clear) H Urine pH 5.5 (5.0-9.0) Urine Specific [place] 1.025 (1.001-1.035) Urine Protein 1+ (Negative) H Urine Ketones Negative (Negative) Urine Blood 3+ /uL (Negative) H Urine Nitrite Negative (Negative) Urine Bilirubin Negative (Negative) Urine Urobilinogen Normal mg/dL (Negative) Urine Leukocyte Esterase 2+ /uL (Negative) Urine RBC 133 /hpf (0 - 3) Urine WBC 264 /hpf (0 - 3) Urine WBC Clumps Present /hpf (None Seen) Urine Squamous Epithelial Cells Few /hpf (<5) Urine Bacteria None seen /hpf (None Seen) Urine Hyaline Casts Few /lpf (0 - 2) Urine Glucose 4+ mg/dL (Normal) H Microbiology Microbiology Date/Time Source Procedure Growth Status 04/19/24 15:45 Blood Blood Culture - Preliminary NO GROWTH AFTER 24 HOURS OF INCUBATION. Resulted Labs and/or images reviewed: Labs reviewed by me, Image(s) reviewed by me Assessment/Plan Assessment/Plan Hematuria kidney ultrasound shows absent left kidney, CT abdomen pelvis without contrast negative for any acute pathology, urology consult by appreciated History of cancer left kidney status post left nephrectomy 2 years ago, received [address] dose [address] Dr[address] Harleen Malhotra Hypercholesterolemia Uncontrolled diabetes with blood sugar 505 A1c 11.8: Insulin aggressive sliding scale, diabetic education UTI: Rocephin blood cultures negative, urine cultures pending,, continue Rocephin Enlarged prostate, scheduled for surgery by his urologist DR Ferguson in April per patient Time spent 55 minutes Condition guarded Patient is full code Patient lives alone Awaiting urine culture result Plan discussed with: Patient Date of Service: Apr 21, 2024 Billing Provider: SUSI COLON MD Common Visit Codes: [id number] INP/OBS CARE(HIGH) SUSI COLON MD Apr 21, 2024 08:58
--- NOTE | 2024-04-21 10:05 | DVHPN2 ---
Progress Note Date Seen: Apr 21, 2024 Medical Necessity Reason Pt with a Central, PICC or Fol: No Subjective Patient reports: No new complaints Other Systems: Patient seen and examined by myself today in follow-up Objective vital signs Vital Sign Date Time Temp Pulse Resp B/P (MAP) Pulse Ox O2 Delivery O2 Flow Rate FiO2 04/21/24 09:00 97.9 52 18 136/53 (80) 98 97.9 04/20/24 20:00 Room Air* 0 21 Total Intake and Output 04/20/24 04/20/24 04/21/24 15:00 23:00 07:00 Intake Total 1050 ml 664 ml 125 ml Output Total 1200 ml 600 ml Balance 1050 ml -536 ml -475 ml medications Current Medications Medications Dose Ordered Sig/Jessica Route Start Time Stop Time Status Last Admin Dose Admin Diagnostic Test (Pha) 1 strip IQ4HR 04/18/24 20:00 04/21/24 05:10 1 STRIP Insulin Human Regular IQ4HR SC 04/18/24 20:00 04/21/24 00:54 3 UNITS Dextrose 50 ml UD PRN IV 04/18/24 18:00 Acetaminophen/ Hydrocodone Bitart 1 tab Q4HP PRN PO 04/18/24 18:00 Ondansetron HCl 4 mg Q4HP PRN IV 04/18/24 18:00 Acetaminophen 650 mg Q6HP PRN PO 04/18/24 18:00 04/19/24 20:50 650 MG Sodium Chloride 1,000 ml @ 75 mls/hr [id number] IV 04/18/24 18:00 04/20/24 23:20 75 MLS/HR Ceftriaxone Sodium 50 ml @ 100 mls/hr DAILY@09 IV 04/20/24 09:00 04/20/24 08:43 100 MLS/HR Examination: LUNGS:Normal, CVS:Normal, MSK:Normal laboratory and microbiology Laboratory Tests 04/20/24 05:40 04/19/24 05:34 Test 04/20/24 05:40 Range/Units Serum Glucose 188 H 74-106 mg/dL Microbiology Date/Time Source Procedure Growth Status 04/19/24 15:45 Blood Blood Culture - Preliminary NO GROWTH AFTER 24 HOURS OF INCUBATION. Resulted Problem List/Assessment/Plan Problem List/Assessment/Plan Acute kidney injury superimposed Chronic Kidney Disease secondary hemodynamic mediated Chronic Kidney Disease stage 3 in setting of solitary right kidney High-grade urothelial carcinoma status post right nephrectomy Uncontrolled diabetes mellitus Hyperglycemia BPH Hypertension Recommendations Kidney function is improving Increased urine output Strict I&Os Insulin sliding scale Blood pressure control Urology on board I will sign off this case please refer to my office two weeks after discharge for Chronic Kidney Disease follow-up Thank you for the consult Plan discussed with: Patient ALONSO HOOPER MD Apr 21, 2024 10:05
[2024-04-21 10:24] LABS: Creatinine, Urine 84.93 mg/dL (30.0-125.0)
[2024-04-22] VITALS (8 sets, daily range): BP systolic 113–166; BP diastolic 49–65; PULSE 51–67; RESP 16–17; TEMP 97.7–98.4; O2SAT 97–99
[2024-04-22 09:40] LABS: Potassium 4.6 mmol/L (3.5-5.1); Sodium 141 mmol/L (136-145)
[2024-04-22 09:41] LABS: Anion Gap 8 (5-15); Carbon Dioxide 26 mmol/L (20-31)
[2024-04-22 09:42] LABS: Chloride 107 mmol/L (98-107)
[2024-04-22 09:47] LABS: BUN/Creatinine Ratio 13.6 (10.0-20.0); Blood Urea Nitrogen 21 mg/dL (9-23)
[2024-04-22 10:21] LABS: Glucose 159 mg/dL (74-106)
--- NOTE | 2024-04-22 10:37 | DVHPN2 ---
Progress Note Date Seen: Apr 22, 2024 Medical Necessity Reason Pt with a Central, PICC or Fol: No Subjective Patient reports: No new complaints Review of Systems: HEENT:Normal, CVS:Normal, RESPIRATORY:Normal, GI:Normal, :Normal, MSK:Normal, NEURO:Normal Objective vital signs Vital Sign Date Time Temp Pulse Resp B/P (MAP) Pulse Ox O2 Delivery O2 Flow Rate FiO2 04/22/24 09:00 97.9 67 16 166/65 (98) 99 97.9 04/22/24 08:00 Room Air* 0 21 Total Intake and Output 04/21/24 04/21/24 04/22/24 15:00 23:00 07:00 Intake Total 530 ml 1760 ml 1750 ml Output Total 700 ml 800 ml Balance 530 ml 1060 ml 950 ml medications Current Medications Medications Dose Ordered Sig/Jessica Route Start Time Stop Time Status Last Admin Dose Admin Dextrose 50 ml UD PRN IV 04/18/24 18:00 Acetaminophen/ Hydrocodone Bitart 1 tab Q4HP PRN PO 04/18/24 18:00 Ondansetron HCl 4 mg Q4HP PRN IV 04/18/24 18:00 Acetaminophen 650 mg Q6HP PRN PO 04/18/24 18:00 04/19/24 20:50 650 MG Sodium Chloride 1,000 ml @ 75 mls/hr [id number] IV 04/18/24 18:00 04/22/24 04:16 75 MLS/HR Ceftriaxone Sodium 50 ml @ 100 mls/hr DAILY@09 IV 04/20/24 09:00 04/22/24 08:57 100 MLS/HR Tamsulosin HCl 0.4 mg QPM PO 04/22/24 18:00 UNV Finasteride 5 mg DAILY PO 04/23/24 10:00 UNV Amlodipine Besylate 5 mg DAILY PO 04/23/24 10:00 UNV Examination: GENERAL:Normal, HEENT:Normal, NECK:Normal, LUNGS:Normal, CVS:Normal, ABDOMEN:Normal, MSK:Normal, SKIN:Normal, NEURO:Normal, :Normal laboratory and microbiology Laboratory Tests 04/22/24 09:03 04/19/24 05:34 Test 04/22/24 09:03 Range/Units Serum Glucose 159 H 74-106 mg/dL Microbiology Date/Time Source Procedure Growth Status 04/21/24 09:36 Voided Urine Urine Culture - Preliminary Resulted 04/19/24 15:45 Blood Blood Culture - Preliminary NO GROWTH AFTER 48 HOURS OF INCUBATION. Resulted Problem List/Assessment/Plan Problem List/Assessment/Plan #1 uti/hematuria: iv rocephin #2 acute renal failure ?vasomotor nephropathy #3 s/p left nephrectomy #4 bph #5 htn: norvasc #6 dm: ssi #7 hyperlipidemia advance care planning- full code- time spent 19 mins Plan discussed with: Patient My Orders My Orders Orders - GISELLE PALOMARES MD Procedure Category Date Status Time Urinalysis LAB 04/22/24 Uncollected 10:25 Tamsulosin PHA 04/22/24 Logged Hydrochloride (Flomax) 18:00 Finasteride Tablet PHA 04/23/24 Logged (Proscar Tablet) 10:00 Amlodipine Tablet PHA 04/22/24 Logged (Norvasc Tablet) 10:30 Amlodipine Tablet PHA 04/23/24 Logged (Norvasc Tablet) 10:00 Glucose Blood PHA 04/22/24 Verified (Accu-Chek Comfort 11:30 Bedtime Insulin Scale PHA 04/22/24 Verified 22:00 Moderate Insulin Ss PHA 04/22/24 Verified 11:30 Dextrose 50% Syringe PHA 04/22/24 Verified 10:45 Date of Service: Apr 22, 2024 Billing Provider: GISELLE PALOMARES MD Common Visit Codes: [id number] INP/OBS CARE(HIGH) Secondary Visit Codes: [id number] CARE PLAN 30 MINUTES GISELLE PALOMARES MD Apr 22, 2024 10:37
[2024-04-22] MEDS ORDERED: DEXTROSE (50%) 50ML SYRG IV PRN (10:45)
[2024-04-22] MEDS: ACCU-CHEK COMFORT CURVE STRIP VI SCH (11:30)
[2024-04-22 13:07] LABS: Urine Bacteria FEW /hpf (None Seen); Urine Blood 3+ /uL (Negative); Urine Clarity Turbid (Clear); Urine Color Light-Brown (Yellow); Urine Protein, UAD 1+ (Negative); Urine Specific Gravity 1.015 (1.001-1.035); Urine Squamous Epithelial Cell FEW /hpf (<5); Urine Urobilinogen Normal (Negative); Urine WBC 21 /hpf (0 - 3)
[2024-04-22] MEDS: amLODIPine BESYLATE 5 MG TAB PO ONE (13:23)
[2024-04-22] MEDS: InsuLIN REG 1unit/0.01ml Soln (100units/ml) SC SCH ×2 (13:26→21:59)
[2024-04-22] MEDS: TAMSULOSIN HYDROCHLORIDE 0.4 MG CAP PO SCH (16:46)
[2024-04-23 01:00] VITALS: BP_SYST 124; BP_SYST 127; BP_DIAS 56; BP_DIAS 61; PULSE 54; PULSE 81; RESP 17; TEMP 98.2; TEMP 98.3; O2SAT 95; O2SAT 97
[2024-04-23] MEDS: HYDROcodone-ACET 5/325MG TAB PO PRN (01:50)
[2024-04-23 05:00] VITALS: BP 142/68; PULSE 56; RESP 17; TEMP 98; O2SAT 99
[2024-04-23 08:00] VITALS: PULSE 60; RESP 16
[2024-04-23 08:40] VITALS: BP_SYST 149; BP_SYST 150; BP_DIAS 64; BP_DIAS 84; PULSE 60; PULSE 99; RESP 16; RESP 17; TEMP 97.9; TEMP 98; O2SAT 94; O2SAT 98
[2024-04-23] MEDS: FINASTERIDE 5 MG TAB PO SCH (09:45)
[2024-04-23] MEDS: amLODIPine BESYLATE 5 MG TAB PO SCH (09:45)
[2024-04-23 11:53] VITALS: BP 157/68; PULSE 48; RESP 16; TEMP 97.7; O2SAT 99
[2024-04-23] MEDS ORDERED: METF-371 PO (12:22)
[2024-04-23] MEDS ORDERED: CEFD300C2 PO (12:22)
[2024-04-23] MEDS ORDERED: AMLO1TAB23 PO (12:22)
--- NOTE | 2024-04-23 12:23 | DVHDS2 ---
Discharge Summary Date of Admission Apr 18, 2024 at 17:48 Date of Discharge: Apr 23, 2024 Labs/Diagnostic Data: Laboratory Results Test 04/23/24 11:39 04/22/24 11:26 04/22/24 09:03 04/21/24 09:36 POC Glucose 174 mg/dl (70-106) Urine Color Light-brown (Yellow) Urine Clarity Turbid (Clear) Urine pH 6.0 (5.0-9.0) Urine Specific [place] 1.015 (1.001-1.035) Urine Protein 1+ (Negative) Urine Ketones 1+ (Negative) Urine Blood 3+ /uL (Negative) Urine Nitrite Negative (Negative) Urine Bilirubin Negative (Negative) Urine Urobilinogen Normal mg/dL (Negative) Urine Leukocyte Esterase Negative /uL (Negative) Urine RBC 1765 /hpf (0 - 3) Urine WBC 21 /hpf (0 - 3) Urine Squamous Epithelial Cells Few /hpf (<5) Urine Bacteria Few /hpf (None Seen) Urine Glucose 2+ mg/dL (Normal) Sodium Level 141 mmol/L (136-145) Potassium Level 4.6 mmol/L (3.5-5.1) Chloride Level 107 mmol/L (98-107) Carbon Dioxide Level 26 mmol/L (20-31) Anion Gap 8 (5-15) Blood Urea Nitrogen 21 mg/dL (9-23) Creatinine 1.54 mg/dL (0.700-1.30) Glomerular Filtration Rate Calc 48 mL/min (>90) BUN/Creatinine Ratio 13.6 (10.0-20.0) Serum Glucose 159 mg/dL (74-106) Calcium Level 10.0 mg/dL (8.7-10.4) Urine Creatinine 84.93 mg/dL (30.0-125.0) Urine Sodium 94 mmol/L (40-220) Test 04/20/24 05:40 04/19/24 15:48 04/19/24 05:34 04/18/24 10:22 Free Prostate Specific Antigen 0.26 ng/mL (N/A) Percent Free Prostate Specific Ag 32.5 % (.) Prostate Specific Antigen Total 0.8 ng/mL (0.0-4.0) Prothrombin Time 11.0 sec (9.3-11.8) Prothrombin Time INR 1.04 (0.9-1.15) Activated Partial Thromboplast Time 25.1 SEC (24.5-34.5) White Blood Count 7.0 10^3/uL (4.4-10.8) Red Blood Count 3.63 10^6/uL (4.5-5.90) Hemoglobin 11.7 g/dL (13.5-17.5) Hematocrit 33.9 % (41.0-53.0) Mean Corpuscular Volume 93.4 fL (80.0-100.0) Mean Corpuscular Hemoglobin 32.2 pg (28.0-32.0) Mean Corpuscular Hemoglobin Concent 34.5 g/dL (32.0-36.0) Red Cell Distribution Width 13.4 % (11.8-14.3) Platelet Count 122 10^3/uL (140-450) Mean Platelet Volume 7.8 fL (6.9-10.8) Neutrophils (%) (Auto) 62.8 % (37.0-80.0) Lymphocytes (%) (Auto) 26.1 % (10.0-50.0) Monocytes (%) (Auto) 8.5 % (0.0-12.0) Eosinophils (%) (Auto) 2.3 % (0.0-7.0) Basophils (%) (Auto) 0.3 % (0.0-2.0) Neutrophils # (Auto) 4.4 10 ^3/uL (1.6-8.6) Lymphocytes # (Auto) 1.8 10 ^3/uL (0.4-5.4) Monocytes # (Auto) 0.6 10 ^3/uL (0-1.3) Eosinophils # (Auto) 0.2 10 ^3/uL (0-0.8) Basophils # (Auto) 0 10 ^3/uL (0-0.2) Nucleated Red Blood Cells 0.0 % Total Bilirubin 1.1 mg/dL (0.2-1.0) Aspartate Amino Transferase (AST) 14 U/L (13-40) Alanine Aminotransferase (ALT) 17 U/L (7-40) Alkaline Phosphatase 85 U/L (46-116) Total Protein 6.5 g/dL (5.7-8.2) Albumin 3.8 g/dL (3.2-4.8) Hemoglobin A1c 11.8 % A1C (<5.7) Test 04/18/24 10:06 Urine WBC Clumps Present /hpf (None Seen) Urine Hyaline Casts Few /lpf (0 - 2) Other Laboratory Tests 04/22/24 09:03 04/19/24 05:34 Brief Hx & Hospital Course: see dictated note Condition at Discharge: Fair Final Diagnosis/Problems List uti diabetes Discharge Disposition: Home Discharge Instruct/Medications Diet: Consistent carbohydrate, Cardiac 2g Na,low cholest Activity: No Restrictions, As Tolerated Follow Up/Referral: fu with pcp in 1 wk Medications: resume home meds script to pharmacy Discharge Statement: "Patient was advised to return to the ER or call 911 if any headaches, dizziness, shortness of breath, chest pain, abdominal pain, bleeding, fevers, or worsening of medical condition. Patient was counseled about treatment plan, medications, possible side effects, patientverbalized understanding. All questions were answered to the best of my ability. This discharge took greater then 30 minutes in planning, reviewing documentation, counseling the patient, and discussing with other team members." ASSESSMENT ASSESSMENT Assessment uti diabetes Date of Service: Apr 23, 2024 Billing Provider: GISELLE PALOMARES MD Common Visit Codes: [id number] DISCH DAY >30min GISELLE PALOMARES MD Apr 23, 2024 12:23
[2024-04-23 15:55] VITALS: BP 149/64
== END 2024-04-23 17:08 | disposition home or self-care (01) | DRG 637 ==
LOC: ER 09:35 → OVERFLOW 17:48 → CENTRAL 23:20
PROVIDERS: ATTEND Family Medicine
DX: E11.65 Type 2 diabetes mellitus with hyperglycemia (principal); N17.0 Acute kidney failure with tubular necrosis; N30.01 Acute cystitis with hematuria; E11.22 Type 2 diabetes mellitus with diabetic chronic kidney disease; E78.00 Pure hypercholesterolemia, unspecified; I12.9 Hypertensive chronic kidney disease with stage 1 through stage 4 chronic kidney disease, or unspecified chronic kidney disease; N18.30 Chronic kidney disease, stage 3 unspecified; N40.1 Benign prostatic hyperplasia with lower urinary tract symptoms; N39.498 Other specified urinary incontinence; Z90.5 Acquired absence of kidney; Z96.642 Presence of left artificial hip joint; Z92.21 Personal history of antineoplastic chemotherapy; Z85.07 Personal history of malignant neoplasm of pancreas; Z80.0 Family history of malignant neoplasm of digestive organs
CPT/HCPCS: 36415; 74176; 76775; 80048; 80053; 81001; 82570; 82962; 83036; 84154; 84300; 85025; 85610; 85730; 87040; 87086; 96365; 99291; G0378; J1815; J2543

== ENCOUNTER 2024-05-13 15:55 | Inpatient (IN) | payer MEDICARE ==
[~2024-05-13] VITALS: Ht 188 cm; Wt 103.1 kg
[~2024-05-13 15:55] MED LIST: AMLO1TAB23 PO; CEFD300C2 PO; FIN5T PO; METF-371 PO; SIMV10TA20 PO; TAMS0.4C39 PO
--- NOTE | 2024-05-13 16:26 | ED.PDOC ---
General HPI Comments HPI: Poor Historian. 69-year-old male presents to emergency department for evaluation of one day history of painless hematuria. Patient had similar episodes few weeks ago at the beginning of this year where he was hospitalized for UTI and given IV antibiotics. Patient is not on blood thinners. Patient denies any other symp toms. Initial Vitals: Temp: 99F BP: 132/54 HR: 67 RR: 19 O2 Sat.: 98% Past Medical History: cancer, tumor left kidney Past Surgical History: left hip surgery Social History: Denies smoking, ETOH, and drug use Medication: Flomax, Metformin, Lisinopril, Norrase, Lipitor, Zocor, D-3 Allergies: NKDA REVIEW OF SYSTEMS: CONSTITUTIONAL: Denies acute: fever, diaphoresis, chills, generalized weakness. HEAD: Denies acute: headache, photophobia Eyes: Denies acute: Double vision, vision loss, eye pain, eye discharge. EARS: Denies acute: tinnitus, hearing loss, ear discharge, ear pain, THROAT: Denies acute: sore throat, swelling, difficulty swallowing , pain with swallowing, change in voice. NECK: Denies acute: neck pain, neck swelling, stiff neck. HEART: Denies acute : chest pain, palpitations, LUNGS: Denies acute: SOB, wheezing, cough, hemoptysis ABDOMEN: Denies acute: abdominal pain, Nausea, Vomiting, diarrhea, melena , hematemesis, hematochezia SKIN: Denies acute: rash, redness, lesions, itchiness. EXTREMITIES: Denies acute: calf pain, numbness, tingling, weakness, denies pain in extremity. Denies acute: Low back pain. Neuro: Denies acute: focal neurological deficit, motor or sensory focal neurological deficit, tremors, seizure like activity, confusion, dizziness, change in mental status, loss of bowel or bladder function, cauda equina like symptoms. : Denies acute: dysuria, flank pain, increase in urinary frequency. PSYCH: Denies acute: hallucination, suicidal ideation, homicidal ideation. PHYSICAL EXAM: General: no acute distress, awake and alert. Head: normocephalic, atraumatic. Neck: supple, trachea is midline, no swelling. Throat: Normal phonation. Eyes:, no erythema, no purulent discharge, no proptosis, no icterus. Heart: regular rate, regular rhythm, no significant murmur appreciated. Lungs: no apparent respiratory distress, Able to speak in full sentences. No wheezing, no rhonchi, no crackles. No stridors Clear to auscultation bilaterally. Abdomen: non tender to palpation, non distended, soft, no guarding, no rebound, + bowel sounds. Neuro: Awake, Alert, oriented to name, self, situation, follows commands GCS=15. Speech is normal. Skin: no petechia, no purpura, no cyanosis, non-pale, not jaundice. Lower extremities: --1/4 b/l - Pitting edema no deformity, no focal swelling, no calf TTP. Makes eye contact. moves all four extremities. Face: no apparent facial droop. Ambulating in the ED independently. Time Seen by MD: 16:06 Reviewed notes: Nurses Notes, Medications, Allergies Allergies: Coded Allergies: NO KNOWN ALLERGIES (Unverified , 01/06/18) Home Meds Active Scripts Metformin Hydrochloride (Metformin Hcl) 850 Mg Tab, 850 MG PO BID for 30 Days, #60 TAB 2 Refills Prov:GISELLE PALOMARES MD 04/23/24 Cefdinir (Cefdinir) 300 Mg Cap, 300 MG PO BID for 7 Days, #14 CAP Prov:GISELLE PALOMARES MD 04/23/24 Amlodipine Besylate (Amlodipine Besylate) 10 Mg Tab, 10 MG PO DAILY for 30 Days, #30 TAB 2 Refills Prov:GISELLE PALOMARES MD 04/23/24 Reported Medications Finasteride (Finasteride) 5 Mg Tab, 1 TAB PO DAILY 04/18/24 Tamsulosin Hcl (Tamsulosin Hcl) 0.4 Mg Cap, 1 CAP PO BID 04/18/24 Simvastatin (Simvastatin) 10 Mg Tab, 1 TAB PO 04/18/24 Information Source: Patient Mode of Arrival: Ambulatory Past Medical History PAST MEDICAL HISTORY: Cancer, High Lipids Family History Family History: Reviewed,noncontributory to illness, Unknown Social History Smoker: Cigarettes Alcohol: Occasionally Drugs: Denies Drug Use Lives In: Home Was a procedure done? Was a procedure done?: No Differential Diagnosis Kidney stone (Female): N/A Urinary Problem (Male): Other (Hematuria:Ddx includes but not limited to: stones, coagulopathy, bladder/kidney cancer, SLE, infection, pylonephritis, prostatitis, cystitis, urethritis, renal infarct, Goodpasture syndrome, Wegners granulomatosis, Henoch-schnolin purpura, Hemolytic Uremic Syndrome HUS. Rhabdomyolysis. ) X-Ray, Labs, Meds, VS Vital Signs Date Time Temp Pulse Resp B/P (MAP) Pulse Ox O2 Delivery O2 Flow Rate FiO2 05/13/24 17:47 60 17 99 Room Air 05/13/24 17:47 98.9 60 17 140/70 (93) 99 98.9 05/13/24 16:25 99.0 67 19 132/54 (80) 98 Lab Test 05/13/24 18:57 05/13/24 17:18 05/13/24 16:44 Range/Units Lactic Acid Level 2.3 *H 3.4 *H 0.4-2.0 mmol/L Urine Color Light-red Yellow Urine Clarity Ex.turbid Clear Urine pH 6.0 5.0-9.0 Urine Specific [place] 1.016 1.001-1.035 Urine Protein 2+ H Negative Urine Ketones Negative Negative Urine Blood 3+ H Negative /uL Urine Nitrite Negative Negative Urine Bilirubin Negative Negative Urine Urobilinogen Normal Negative mg/dL Urine Leukocyte Esterase 1+ Negative /uL Urine RBC 99018 0 - 3 /hpf Urine Microscopic WBC 0-3 /HPF Urine Squamous Epithelial Cells None seen <5 /hpf Urine Bacteria None seen None Seen /hpf Urine Yeast (Budding) Few None Seen /hpf Urine Glucose Normal Normal mg/dL Urine Opiates Screen Neg NEGATIVE Urine Fentanyl Screen Neg NEGATIVE Urine Barbiturates Screen Neg NEGATIVE Urine Phencyclidine Screen Neg NEGATIVE Urine Amphetamines Screen Neg NEGATIVE Urine Benzodiazepines Screen Neg NEGATIVE Urine Cocaine Screen Neg NEGATIVE Urine Cannabinoids Screen Neg NEGATIVE White Blood Count 5.6 4.4-10.8 10^3/uL Red Blood Count 3.47 L 4.5-5.90 10^6/uL Hemoglobin 11.1 L 13.5-17.5 g/dL Hematocrit 32.6 L 41.0-53.0 % Mean Corpuscular Volume 94.2 80.0-100.0 fL Mean Corpuscular Hemoglobin 32.1 H 28.0-32.0 pg Mean Corpuscular Hemoglobin Concent 34.1 32.0-36.0 g/dL Red Cell Distribution Width 13.8 11.8-14.3 % Platelet Count 140 140-450 10^3/uL Mean Platelet Volume 7.8 6.9-10.8 fL Neutrophils (%) (Auto) 54.7 37.0-80.0 % Lymphocytes (%) (Auto) 32.5 10.0-50.0 % Monocytes (%) (Auto) 7.7 0.0-12.0 % Eosinophils (%) (Auto) 4.2 0.0-7.0 % Basophils (%) (Auto) 0.9 0.0-2.0 % Neutrophils # (Auto) 3.0 1.6-8.6 10 ^3/uL Lymphocytes # (Auto) 1.8 0.4-5.4 10 ^3/uL Monocytes # (Auto) 0.4 0-1.3 10 ^3/uL Eosinophils # (Auto) 0.2 0-0.8 10 ^3/uL Basophils # (Auto) 0 0-0.2 10 ^3/uL Nucleated Red Blood Cells 0.0 % Prothrombin Time 10.4 9.3-11.8 sec Prothrombin Time INR 0.98 0.9-1.15 Activated Partial Thromboplast Time 28.2 24.5-34.5 SEC Sodium Level 143 136-145 mmol/L Potassium Level 5.0 3.5-5.1 mmol/L Chloride Level 109 H 98-107 mmol/L Carbon Dioxide Level 26 20-31 mmol/L Anion Gap 8 5-15 Blood Urea Nitrogen 34 H 9-23 mg/dL Creatinine 1.54 H 0.700-1.30 mg/dL Glomerular Filtration Rate Calc 48 >90 mL/min BUN/Creatinine Ratio 22.1 H 10.0-20.0 Serum Glucose 79 74-106 mg/dL Calcium Level 10.3 8.7-10.4 mg/dL Total Bilirubin 0.6 0.2-1.0 mg/dL Aspartate Amino Transferase (AST) 23 13-40 U/L Alanine Aminotransferase (ALT) 20 7-40 U/L Alkaline Phosphatase 78 46-116 U/L B-Type Natriuretic Peptide 47.10 0-100 pg/mL Total Protein 7.2 5.7-8.2 g/dL Albumin 4.5 3.2-4.8 g/dL Microbiology Date/Time Source Procedure Growth Status 05/13/24 17:18 Voided Urine Urine Culture - Final Complete [facility] [id number] [facility] [address] Ph: [phone] DIAGNOSTIC IMAGING Diagnostic Imaging Report : [id number] Signed PATIENT: TEZ BARRIOS ACCT: [id number] UNIT: [id number] : 1955 LOC: ER ROOM / BED: / AGE / SEX: 69 / M ADM STATUS: REG ER SERVICE 1623 ORDERING PHYSICIAN: TAINA CARTER DO PROCEDURE(s): ABPL - CT AB PEL WO CON-NO ORAL OR IV REASON: painless hematuria ORDER NUMBER(s): [id number], ACCESSION NUMBER(s): [id number] Exam: CT CT AB PEL WO CON-NO ORAL OR IV History: painless hematuria Comparison Study: 04/19/2024 TECHNIQUE: Multidetector CT of the abdomen and pelvis without contrast. Axial, coronal and sagittal multiplanar reformats were obtained from the axial data set by the technologist. Radiation Dose Information: CT Dose: CTDI volume is 18.38 mGy. Dose-length product is 1013.02 mGy*cm FINDINGS: Bibasilar atelectasis. Heart size is within normal limits. Trace pericardial effusion. Hepatomegaly. Otherwise, liver, spleen, pancreas and left adrenal gland unremarkable. 1.1 cm right adrenal nodule measuring up to -0.7 Hounsfield units which may represent an adenoma. Cholelithiasis with no evidence for acute cholecystitis. The left kidney is not visualized. The right kidney and right ureter unremarkable. Mild wall thickening of the urinary bladder which may be due to inadequate distention. Prostate measures 4.1 by 5.3 by 4.2 cm with extension into the inferior urinary bladder. Stomach is filled with ingested material small bowel loops unremarkable. Appendix is unremarkable. Moderate amount of fecal material within the colon. Descending colon and sigmoid diverticulosis without diverticulitis. Distal rectal wall thickening. Mild fat stranding adjacent to the rectum with minimal mesenteric edema. Moderate to heavy atherosclerotic calcification of the aorta and bilateral iliacs. No evidence of aortic aneurysm. No significant lymphadenopathy. Tiny ventral fat containing supraumbilical and umbilical hernias. Small fat containing left inguinal hernia. Bilateral inguinal lymphadenopathy measuring up to 1.6 cm on the right and 1.1 cm on the left. Mild edema of the bilateral inferior buttock extending to the ischial tuberosity. Intramedullary hilda and dynamic screw fixation of the left femur with the distal end not imaged . Hypertrophic bony changes of the proximal femur which most likely represent sequela prior injury. Diffuse demineralization IMPRESSION: Moderate amount of fecal material within the colon with distal rectal wall thickening and associated adjacent fat stranding. Correlate for stercoral colitis. Mild wall thickening of the urinary bladder which may be due to inadequate distention. Correlation with urinalysis is recommended to exclude cystitis. Colonic diverticulosis without diverticulitis. Trace pericardial effusion. Cholelithiasis without evidence of acute cholecystitis. Enlarged prostate. Recommend correlation with PSA. 1.1 cm right adrenal nodule ATED BY: HONEY COLBERT DO DICTATED DATE/TIME: 05/13/241702 SIGNED BY: HONEY COLBERT DO SIGNED DATE/TIME: 05/13/241702 CC: Time of 1ST Reevaluation: 17:06 Reevaluation 1ST: Unchanged Patient Education/Counseling: Diagnosis, Treatment Family Education/Counseling: No Family Present Comments Patient presented with the above HPI.-- PAINLESS HEMATURIA ---workup was initiated. patient was found with the above mentioned diagnosis. the following medications were ordered: fluids, ROCEPHIN, FUROSEMIDE the following tests were ordered: CT ABD PEL, labs. Patient ED course and VS have been stabilized. Patient has been reassessed in the ED and remained in a stable condition. Pertinent incidental findings were discussed with the patient and/or family. Patient/family voices understanding and is agreeable with plan. Patient has been observed in the ED adequate length of time to insure improvement/stability. Escalation of care considered: Consideration of escalation to observation or admission Patient was ADMITTED to the medicine team for further evaluation and treatment of their presentation. All the reports of any imaging studies that were ordered by myself were reviewed by myself. Departure 1 Departure Time of Disposition: 20:28 Impression: Primary Impression: Hematuria Disposition: ADMITTED INPATIENT Admit to: [facility] [place] Condition: Guarded Additional Instructions: [place] [address] Ph: [phone] DIAGNOSTIC IMAGING Diagnostic Imaging Report : [id number] Signed PATIENT: TEZ BARRIOS ACCT: [id number] UNIT: [id number] : 1955 LOC: ER ROOM / BED: / AGE / SEX: 69 / M ADM STATUS: REG ER SERVICE 1623 ORDERING PHYSICIAN: TAINA CARTER DO PROCEDURE(s): ABPL - CT AB PEL WO CON-NO ORAL OR IV REASON: painless hematuria ORDER NUMBER(s): [id number], ACCESSION NUMBER(s): [id number] Exam: CT CT AB PEL WO CON-NO ORAL OR IV History: painless hematuria Comparison Study: 04/19/2024 TECHNIQUE: Multidetector CT of the abdomen and pelvis without contrast. Axial, coronal and sagittal multiplanar reformats were obtained from the axial data set by the technologist. Radiation Dose Information: CT Dose: CTDI volume is 18.38 mGy. Dose-length product is 1013.02 mGy*cm FINDINGS: Bibasilar atelectasis. Heart size is within normal limits. Trace pericardial effusion. Hepatomegaly. Otherwise, liver, spleen, pancreas and left adrenal gland unremarkable. 1.1 cm right adrenal nodule measuring up to -0.7 Hounsfield units which may represent an adenoma. Cholelithiasis with no evidence for acute cholecystitis. The left kidney is not visualized. The right kidney and right ureter unremarkable. Mild wall thickening of the urinary bladder which may be due to inadequate distention. Prostate measures 4.1 by 5.3 by 4.2 cm with extension into the inferior urinary bladder. Stomach is filled with ingested material small bowel loops unremarkable. Appendix is unremarkable. Moderate amount of fecal material within the colon. Descending colon and sigmoid diverticulosis without diverticulitis. Distal rectal wall thickening. Mild fat stranding adjacent to the rectum with minimal mesenteric edema. Moderate to heavy atherosclerotic calcification of the aorta and bilateral iliacs. No evidence of aortic aneurysm. No significant lymphadenopathy. Tiny ventral fat containing supraumbilical and umbilical hernias. Small fat containing left inguinal hernia. Bilateral inguinal lymphadenopathy measuring up to 1.6 cm on the right and 1.1 cm on the left. Mild edema of the bilateral inferior buttock extending to the ischial tuberosity. Intramedullary hilda and dynamic screw fixation of the left femur with the distal end not imaged . Hypertrophic bony changes of the proximal femur which most likely represent sequela prior injury. Diffuse demineralization IMPRESSION: Moderate amount of fecal material within the colon with distal rectal wall thickening and associated adjacent fat stranding. Correlate for stercoral col itis. Mild wall thickening of the urinary bladder which may be due to inadequate distention. Correlation with urinalysis is recommended to exclude cystitis. Colonic diverticulosis without diverticulitis. Trace pericardial effusion. Cholelithiasis without evidence of acute cholecystitis. Enlarged prostate. Recommend correlation with PSA. 1.1 cm right adrenal nodule ATED BY: HONEY COLBERT DO DICTATED DATE/TIME: 05/13/241702 SIGNED BY: HONEY COLBERT DO SIGNED DATE/TIME: 05/13/241702 CC: Discharged With: Self Critical Care Note Critical Care Time?: No I personally scribed for TAINA CARTER DO ([email or web address]) on 05/13/24 at 16:59. Electronically submitted by Edu Maya ([email or web address]). I personally scribed for TAINA CARTER DO ([email or web address]) on 05/13/24 at 17:13. Electronically submitted by Edu Maya ([email or web address]). I personally scribed for TAINA CARTER DO ([email or web address]) on 05/13/24 at 21:34. Electronically submitted by Haylee Quijano ([email or web address]). I personally scribed for TAINA CARTER DO ([email or web address]) on 05/13/24 at 21:37. Elec tronically submitted by Haylee Quijano ([email or web address]). I personally scribed for TAINA CARTER DO ([email or web address]) on 05/13/24 at 21:51. Electronically submitted by Haylee Quijano ([email or web address]). TAINA CARTER DO May 13, 2024 16:25
--- NOTE | 2024-05-13 17:05 | DVH ---
Exam: CT CT AB PEL WO CON-NO ORAL OR IV History: painless hematuria Comparison Study: 04/19/2024 TECHNIQUE: Multidetector CT of the abdomen and pelvis without contrast. Axial, coronal and sagittal m ultiplanar reformats were obtained from the axial data set by the technologist. Radiation Dose Information: CT Dose: CTDI volume is 18.38 mGy. Dose-length product is 1013.02 mGy*cm FINDINGS: Bibasilar atelectasis. Heart size is within normal limits. Trace pericardial effusion. Hepatomegaly. Otherwise, liver, spleen, pancreas and left adrenal gland unremarkable. 1.1 cm right a drenal nodule measuring up to -0.7 Hounsfield units which may represent an adenoma. Cholelithiasis wi th no evidence for acute cholecystitis. The left kidney is not visualized. The right kidney and right ureter unremarkable. Mild wall thickeni ng of the urinary bladder which may be due to inadequate distention. Prostate measures 4.1 by 5.3 by 4.2 cm with extension into the inferior urinary bladder. Stomach is filled with ingested material small bowel loops unremarkable. Appendix is unremarkable. Mo derate amount of fecal material within the colon. Descending colon and sigmoid diverticulosis without diverticulitis. Distal rectal wall thickening. Mild fat stranding adjacent to the rectum with minima l mesenteric edema. Moderate to heavy atherosclerotic calcification of the aorta and bilateral iliacs. No evidence of aor tic aneurysm. No significant lymphadenopathy. Tiny ventral fat containing supraumbilical and umbilical hernias. Small fat containing left inguinal hernia. Bilateral inguinal lymphadenopathy measuring up to 1.6 cm on the right and 1.1 cm on the left. Mild edema of the bilateral inferior buttock extending to the ischial tuberosity. Intramedullary hilda and dynamic screw fixation of the left femur with the distal end not imaged . Hypertrophic bony anaya es of the proximal femur which most likely represent sequela prior injury. Diffuse demineralization IMPRESSION: Moderate amount of fecal material within the colon with distal rectal wall thickening and associated adjacent fat stranding. Correlate for stercoral colitis. Mild wall thickening of the urinary bladder which may be due to inadequate distention. Correlation w ith urinalysis is recommended to exclude cystitis. Colonic diverticulosis without diverticulitis. Trace pericardial effusion. Cholelithiasis without evidence of acute cholecystitis. Enlarged prostate. Recommend correlation with PSA. 1.1 cm right adrenal nodule
[2024-05-13 17:15] LABS: Basophils # (auto) 0 10 ^3/uL (0-0.2); Basophils % (auto) 0.9 % (0.0-2.0); Eosinophils # (auto) 0.2 10 ^3/uL (0-0.8); Eosinophils % (auto) 4.2 % (0.0-7.0); Hematocrit 32.6 % (41.0-53.0); Hemoglobin 11.1 g/dL (13.5-17.5); Lymphocytes # (auto) 1.8 10 ^3/uL (0.4-5.4); Lymphocytes % (auto) 32.5 % (10.0-50.0); Mean Corpuscular Hemoglobin 32.1 pg (28.0-32.0); Mean Corpuscular Hgb Conc. 34.1 g/dL (32.0-36.0); Mean Corpuscular Volume 94.2 fL (80.0-100.0); Monocytes # (auto) 0.4 10 ^3/uL (0-1.3); Monocytes % (auto) 7.7 % (0.0-12.0); Neutrophils % (auto) 54.7 % (37.0-80.0); Platelet Count (auto) 140 10^3/uL (140-450); Red Blood Cells 3.47 10^6/uL (4.5-5.90); Red Cell Distribution Width 13.8 % (11.8-14.3); White Blood Cell 5.6 10^3/uL (4.4-10.8)
[2024-05-13 17:19] LABS: Urine Bacteria None Seen /hpf (None Seen)
[2024-05-13 17:30] LABS: INR 0.98 (0.9-1.15); Partial Thromboplastin Time 28.2 SEC (24.5-34.5); Prothrombin Time 10.4 sec (9.3-11.8)
[2024-05-13 17:34] LABS: Alanine Aminotransferase 20 U/L (7-40); Albumin 4.5 g/dL (3.2-4.8); Alkaline Phosphatase 78 U/L (46-116); Anion Gap 8 (5-15); Aspartate Aminotransferase 23 U/L (13-40); BUN/Creatinine Ratio 22.1 (10.0-20.0); Bilirubin, Total 0.6 mg/dL (0.2-1.0); Calcium 10.3 mg/dL (8.7-10.4); Carbon Dioxide 26 mmol/L (20-31); Glucose 79 mg/dL (74-106); Sodium 143 mmol/L (136-145); Total Protein 7.2 g/dL (5.7-8.2)
[2024-05-13 17:37] LABS: Urine Blood 3+ /uL (Negative); Urine Budding Yeast FEW /hpf (None Seen); Urine Clarity Ex.Turbid (Clear); Urine Color Light-Red (Yellow); Urine Protein, UAD 2+ (Negative); Urine Specific Gravity 1.016 (1.001-1.035); Urine Squamous Epithelial Cell None Seen /hpf (<5); Urine Urobilinogen Normal (Negative)
[2024-05-13 17:39] LABS: Blood Urea Nitrogen 34 mg/dL (9-23); Chloride 109 mmol/L (98-107)
[2024-05-13 17:44] LABS: Lactic Acid w/Reflex 3.4 mmol/L (0.4-2.0)
[2024-05-13] MEDS: SODIUM CHLORIDE 0.9% 500 ML IV ONE (17:49)
[2024-05-13] MEDS: cefTRIAXone 1GM/50ML D5W 50 ML IV ONE (17:50)
[2024-05-13] MEDS ORDERED: DEXTROSE (50%) 50ML SYRG IV PRN (21:45)
--- NOTE | 2024-05-13 21:45 | DVHHPRES ---
History of Present Illness Resident Creating Document: ISAMAR SHELLEY RESIDENT Reason for Visit: Hematuria History of Present Illness This is a 69-year-old male who presents to the ED with chief complain of hematuria. He has a past medical history relevant for type 2 diabetes, hypertension, hyperlipidemia, left kidney cancer status post chemotherapy and left nephrectomy performed two years ago, BPH. Patient states that 24 hours ago he started having shirin blood in his urine, he denied any dysuria, urinary urgency, frequency, there is no pain. He also sta shonda being constipated but just now started having diarrheic episodes. He currently denies any abdominal pain, nausea, dizziness, lightheadedness, shortness of breath, chest pain, fevers, general malaise, chills. Past Surgical History Left hip replacement, left nephrectomy Smoke: No ALCOHOL: none Drugs: None Review of Systems Constitutional: No: Fever, Chills, Sweats, Weakness, Malaise, Other Eyes: No: Pain, Vision change, Conjunctivae inflammation, Eyelid inflammation, Other, Redness ENT: No: Ear pain, Ear discharge, Nose pain, Nose discharge, Nose congestion, Mouth pain, Mouth swelling, Throat pain, Throat swelling, Other Respiratory: No: Cough, Dry, Shortness of breath, SOB with excertion, Wheezing, Hemoptysis, Pleuritic Pain, Sputum, Wheezing, Other Cardiovascular: No: Chest Pain, Palpitations, Orthopnea, Paroxysmal Noc. Dyspnea, Edema, Lt Headedness, Other Gastrointestinal: No: Nausea, Vomiting, Abdominal Pain, Diarrhea, Constipation, Melena, Hematochezia, Other Genitourinary: No Dysuria, No Frequency, No Incontinence; Hematuria; No Retention, No Other Musculoskeletal: No: other, neck pain, shoulder pain, arm pain, back pain, hand pain, leg pain, foot pain Skin: No: Rash, Lesions, Jaundice, Bruising, Other Neurological: No: Weakness, Numbness, Incoordination, Change in speech, Confusion, Seizures, Other Allergies: Coded Allergies: NO KNOWN ALLERGIES (Unverified , 01/06/18) Exam Vital Signs Vital Signs Date Time Temp Pulse Resp B/P (MAP) Pulse Ox O2 Delivery O2 Flow Rate FiO2 05/13/24 17:47 60 17 99 Room Air 05/13/24 17:47 98.9 140/70 (93) 98.9 General Appearance: Alert, Oriented X3, Cooperative, No acute distress HEENT: Atraumatic, PERRLA, EOMI, Mucous membr. moist/pink Respiratory: Clear to auscultation, Normal air movement Cardiovascular: Regular rate, Normal S1, Normal S2, No murmurs Abdominal: Normal bowel sounds, Soft, No tenderness, No hepatospenomegaly Extremities: No clubbing, No cyanosis, No edema, Normal pulses Skin: No rashes, No breakdown, No significant lesion Neuro: Normal gait, Normal speech, Strength at 5/5 X4 ext, Sensation intact Psych/Mental Status: Mental status NL, Mood NL Labs/Xrays Labs Test 05/13/24 18:57 05/13/24 17:18 05/13/24 16:44 Range/Units Lactic Acid Level 2.3 *H 0.4-2.0 mmol/L Urine Color Light-red Yellow Urine Clarity Ex.turbid Clear Urine pH 6.0 5.0-9.0 Urine Specific [place] 1.016 1.001-1.035 Urine Protein 2+ H Negative Urine Ketones Negative Negative Urine Blood 3+ H Negative /uL Urine Nitrite Negative Negative Urine Bilirubin Negative Negative Urine Urobilinogen Normal Negative mg/dL Urine Leukocyte Esterase 1+ Negative /uL Urine RBC 93286 0 - 3 /hpf Urine Microscopic WBC 0-3 /HPF Urine Squamous Epithelial Cells None seen <5 /hpf Urine Bacteria None seen None Seen /hpf Urine Yeast (Budding) Few None Seen /hpf Urine Glucose Normal Normal mg/dL White Blood Count 5.6 4.4-10.8 10^3/uL Red Blood Count 3.47 L 4.5-5.90 10^6/uL Hemoglobin 11.1 L 13.5-17.5 g/dL Hematocrit 32.6 L 41.0-53.0 % Mean Corpuscular Volume 94.2 80.0-100.0 fL Mean Corpuscular Hemoglobin 32.1 H 28.0-32.0 pg Mean Corpuscular Hemoglobin Concent 34.1 32.0-36.0 g/dL Red Cell Distribution Width 13.8 11.8-14.3 % Platelet Count 140 140-450 10^3/uL Mean Platelet Volume 7.8 6.9-10.8 fL Neutrophils (%) (Auto) 54.7 37.0-80.0 % Lymphocytes (%) (Auto) 32.5 10.0-50.0 % Monocytes (%) (Auto) 7.7 0.0-12.0 % Eosinophils (%) (Auto) 4.2 0.0-7.0 % Basophils (%) (Auto) 0.9 0.0-2.0 % Neutrophils # (Auto) 3.0 1.6-8.6 10 ^3/uL Lymphocytes # (Auto) 1.8 0.4-5.4 10 ^3/uL Monocytes # (Auto) 0.4 0-1.3 10 ^3/uL Eosinophils # (Auto) 0.2 0-0.8 10 ^3/uL Basophils # (Auto) 0 0-0.2 10 ^3/uL Nucleated Red Blood Cells 0.0 % Prothrombin Time 10.4 9.3-11.8 sec Prothrombin Time INR 0.98 0.9-1.15 Activated Partial Thromboplast Time 28.2 24.5-34.5 SEC Sodium Level 143 136-145 mmol/L Potassium Level 5.0 3.5-5.1 mmol/L Chloride Level 109 H 98-107 mmol/L Carbon Dioxide Level 26 20-31 mmol/L Anion Gap 8 5-15 Blood Urea Nitrogen 34 H 9-23 mg/dL Creatinine 1.54 H 0.700-1.30 mg/dL Glomerular Filtration Rate Calc 48 >90 mL/min BUN/Creatinine Ratio 22.1 H 10.0-20.0 Serum Glucose 79 74-106 mg/dL Calcium Level 10.3 8.7-10.4 mg/dL Total Bilirubin 0.6 0.2-1.0 mg/dL Aspartate Amino Transferase (AST) 23 13-40 U/L Alanine Aminotransferase (ALT) 20 7-40 U/L Alkaline Phosphatase 78 46-116 U/L Total Protein 7.2 5.7-8.2 g/dL Albumin 4.5 3.2-4.8 g/dL Assessment/Plan Assessment/Plan #Hematuria, rule out UTI, nephrolithiasis, bladder cancer #Lactic acidosis Rocephin IV Pending urine culture IV fluids given Urology consulted #History of kidney cancer status post chemotherapy and left nephrectomy #CKD stage 3 Monitor Avoid nephrotoxic agents #Benign prostatic hyperplasia Tamsulosin 0.4 mg p.o. b.i.d. Finasteride 5 mg p.o. q.d. #Stercoral colitis Lactulose 15 mL p.o. once #Diverticulosis, no diverticulitis Monitor #Cholelithiasis, no cholecystitis Monitor #Anemia normocytic, mild likely related to chronic disease and hematuria Stool occult blood Monitor #Hyperlipidemia Lipitor 20 mg p.o. q.d. #Type 2 diabetes, uncontrolled SSI mild Last A1c 11.8% Consistent carb diet #Hypertension, controlled Continue amlodipine 10 mg p.o. q.d. Goals of care were discussed for 30 minutes. Full code Case was discussed with Dr. Duncan Plan discussed with: Patient My Orders Orders - ISAMAR SHELLEY Procedure Category Date Status Time Admit ADMIT 05/13/24 Transmitted 21:20 Notify Of Changes JORDYN 05/13/24 In Process From Base 21:20 Date of Service: May 13, 2024 Billing Provider: MÓNICA DUNCAN MD Common Visit Codes: [id number] INP/OBS CARE (HIGH) Secondary Visit Codes: [id number] CARE PLAN 30 MINUTES ISAMAR SHELLEY RESIDENT May 13, 2024 21:45 MÓNICA DUNCAN MD May 14, 2024 09:44
[2024-05-13] MEDS: ACCU-CHEK COMFORT CURVE STRIP VI SCH (22:00)
[2024-05-13] MEDS: InsuLIN REG 1unit/0.01ml Soln (100units/ml) SC SCH (22:00)
--- NOTE | 2024-05-13 22:43 | DVH ---
CHEST RADIOGRAPH Indication: sob Technique: Single frontal view of the chest was obtained Comparison: None FINDINGS: Lines and Tubes: MediPort in place from a right internal jugular vein with the tip in the superior ve na cava above the right atrium. There is no pneumothorax on the right. Lungs: No focal consolidation. Pleura: No effusion. No pneumothorax. Cardiomediastinal contours: Unremarkable Bones: No acute osseous abnormality. IMPRESSION: 1. No acute cardiopulmonary disease. 2. MediPort in place from the right internal jugular vein with the tip in the superior vena cava abov e the right atrium. There is no pneumothorax.
[2024-05-13] MEDS: LACTULOSE 20Gm/30ML SOLN PO ONE (23:23)
[2024-05-13] MEDS: FUROSEMIDE 40 MG/4 ML VIAL IV ONE (23:23)
[2024-05-13 23:32] VITALS: BP 146/66; PULSE 75; RESP 16; TEMP 98; O2SAT 98
[2024-05-14 00:25] LABS: Amphetamine Screen, Urine Neg (NEGATIVE); Barbiturate Scree,Urine Neg (NEGATIVE); Benzodiazephine Screen, Urine Neg (NEGATIVE); Cannabinoid Screen, Urine Neg (NEGATIVE); Cocaine Screen, Urine Neg (NEGATIVE); Opiate Scree,Urine Neg (NEGATIVE); Phencyclidine Screen, Urine Neg (NEGATIVE)
[2024-05-14 05:30] VITALS: PULSE 75; RESP 18; O2SAT 95
[2024-05-14 05:35] VITALS: BP 132/68; PULSE 75; RESP 19; TEMP 98.1; O2SAT 94
[2024-05-14 08:44] VITALS: BP 137/59; PULSE 60; RESP 18; TEMP 97.5; O2SAT 98
[2024-05-14 08:52] LABS: Basophils # (auto) 0 10 ^3/uL (0-0.2); Basophils % (auto) 0.6 % (0.0-2.0); Eosinophils # (auto) 0.3 10 ^3/uL (0-0.8); Eosinophils % (auto) 5.2 % (0.0-7.0); Hematocrit 32.8 % (41.0-53.0); Hemoglobin 11.3 g/dL (13.5-17.5); Lymphocytes # (auto) 1.4 10 ^3/uL (0.4-5.4); Lymphocytes % (auto) 25.9 % (10.0-50.0); Mean Corpuscular Hemoglobin 32.1 pg (28.0-32.0); Mean Corpuscular Hgb Conc. 34.4 g/dL (32.0-36.0); Mean Corpuscular Volume 93.2 fL (80.0-100.0); Monocytes # (auto) 0.4 10 ^3/uL (0-1.3); Monocytes % (auto) 7.8 % (0.0-12.0); Neutrophils # (auto) 3.3 10 ^3/uL (1.6-8.6); Neutrophils % (auto) 60.5 % (37.0-80.0); Platelet Count (auto) 133 10^3/uL (140-450); Red Blood Cells 3.52 10^6/uL (4.5-5.90); Red Cell Distribution Width 13.6 % (11.8-14.3); White Blood Cell 5.4 10^3/uL (4.4-10.8)
[2024-05-14 09:03] LABS: Potassium 4.3 mmol/L (3.5-5.1); Sodium 142 mmol/L (136-145)
[2024-05-14 09:04] LABS: Anion Gap 9 (5-15); Carbon Dioxide 22 mmol/L (20-31)
[2024-05-14 09:05] LABS: Calcium 9.6 mg/dL (8.7-10.4); Chloride 111 mmol/L (98-107)
[2024-05-14 09:10] LABS: BUN/Creatinine Ratio 20.4 (10.0-20.0)
[2024-05-14 09:12] LABS: Blood Urea Nitrogen 30 mg/dL (9-23)
[2024-05-14 09:30] LABS: Glucose 91 mg/dL (74-106)
[2024-05-14] MEDS: PATIENTS OWN MEDICATION (Amlodipine Besylate 10 MG) PO SCH (10:00)
--- NOTE | 2024-05-14 10:25 | DVHPNRES ---
Progress Note Date Seen: May 14, 2024 Resident Creating Document: ROSELIA SANTANA RESIDENT Has the PT tested + for MRSA If YES, has PT been informed?: No Medical Necessity Reason Pt with a Central, PICC or Fol: No Subjective Review of Systems This is a 69-year-old male with past medical history of hypertension, type 2 diabetes, hyperlipidemia, BPH, left kidney cancer status post chemotherapy 22 sessions and left nephrectomy performed two years ago, the patient also reported previous history of anemia after completing chemotherapy. The patient presented to the ED with chief complaint of shirin hematuria. The patient reports that the episode started 24 hours before coming to the ED consistent with shirin blood in his urine but denied any symptoms of dysuria, urinary urgency, frequency or any lower abdominal pain. The patient also reported being constipated with recent episodes of diarrhea. The patient denied fever/chills, chest pain, shortness of breath, dizziness, abdominal pain or any other complaint at this time. Urinalysis was ordered which showed blood 3+ and more than [address]807 RBCs without cast. Patient was admitted for further assessment and management of hematuria. Patient seen and examined at bedside. The patient is currently reporting [place] colored urine that has been slightly improving color compared to shirin hematuria (red) on admission. The patient denies pain or any other symptoms at this time. We will place an urology consult for shirin hematuria assessment and possible need of cystoscopy. The patient is currently taking tamsulosin 0.4 mg daily and finasteride 5 mg daily for BPH. Patient was started on IV fluids 0.9% at 75 cc/hour. CT scan of the abdomen and pelvis showed possible stercoral colitis, mild wall thickening of the urinary bladder, trace pericardial effusion and enlarged prostate. There is also a 1.1 cm right adrenal nodule. We will monitor hemoglobin and hematocrit closely. ROS Constitutional: Denies weight loss, fever and chills. HEENT: Denies changes in vision and hearing. Respiratory: Denies shortness of breath and cough Cardiovascular: Denies chest discomfort or palpitations GI: Reports shirin hematuria which was initially read and now turned it [place] colored urine. Denies abdominal pain, nausea, vomiting and diarrhea. : Denies dysuria and urinary frequency. Musculoskeletal: Denies myalgias and joint pain Skin: Denies rash and pruritus. Neurological: Denies dizziness, headache, vision or hearing problems Objective vital signs Vital Sign Date Time Temp Pulse Resp B/P (MAP) Pulse Ox O2 Delivery O2 Flow Rate FiO2 05/14/24 08:44 97.5 60 18 137/59 (85) 98 97.5 05/14/24 05:30 Room Air* 0 21 Total Intake and Output 05/13/24 05/13/24 05/14/24 15:00 23:00 07:00 Intake Total 300 ml Output Total 300 ml Balance 0 ml medications Current Medications Medications Dose Ordered Sig/Jessica Route Start Time Stop Time Status Last Admin Dose Admin Diagnostic Test (Pha) 1 strip ACHS 05/13/24 22:00 05/14/24 06:30 1 STRIP Insulin Human Regular ACHS SC 05/13/24 22:00 Dextrose 50 ml UD PRN IV 05/13/24 21:45 Ceftriaxone Sodium 50 ml @ 100 mls/hr DAILY@09 IV 05/14/24 09:00 Finasteride 5 mg DAILY PO 05/14/24 10:00 Tamsulosin HCl 0.4 mg BID PO 05/14/24 10:00 Patient Own Medication 10 mg DAILY PO 05/14/24 10:00 Atorvastatin Calcium 20 mg HS PO 05/14/24 22:00 Sodium Chloride 1,000 ml @ 75 mls/hr [id number] IV 05/14/24 10:30 UNV Examination Physical Examination General: Patient alert and oriented in person, place and time. Patient following commands. HEENT: Normocephalic, atraumatic, moist mucous membranes Respiratory/pulmonary: Clear lungs bilaterally, vesicular murmurs present in almost all lung byrd, no associated crackles or wheezes. Cardiovascular: Normal heart sounds S1 and S2 with no associated murmurs Abdomen: Abdomen nondistended, there is no pain to palpation in any of the abdominal quadrants, no palpable masses. Extremities: There is no peripheral edema present at the lower extremities. Peripheral Pulses: 3+ Radial (R). 3+ Radial (L). 3+ Dorsalis pedis (R). 3+ Dorsalis pedis(L) Skin: No rashes or pruritus, there is no sacral edema present at this time. Neurological: Intact cranial nerves with no focal neurologic deficits laboratory and microbiology Laboratory Tests 05/14/24 08:39 Test 05/14/24 08:39 Range/Units Serum Glucose 91 74-106 mg/dL Problem List/Assessment/Plan Problem List/Assessment/Plan Assessment/Plan Acute shirin hematuria Ruled out Urolithiasis Possible UTI Hx of kidney cancer with left nephrectomy and 22 sessions of chemotherapy two years ago -patient is lower abdominal pain, dysuria, urinary frequency or urgency. -ordered urinalysis which showed urine blood 3+, [place] [address] without RBC cast, no cast evidenced -ordered bladder scan. -on IV ceftriaxone -Urology consult for possible need of cystoscopy Acute on chronic anemia likely due to hematuria Possible anemia of chronic disease -patient states that started developing anemia after completing chemotherapy -iron panel came back low but ferritin is elevated -monitor hemoglobin and hematocrit History of kidney cancer, s/p chemotherapy and left nephrectomy two years ago CKD stage IIIA -creatinine was 1.47, BUN 30, GFR 51 -monitor kidney function BPH -currently on tamsulosin 0.4 mg p.o. daily -finasteride 5 mg p.o. daily Dyslipidemia -order a lipid panel -continue atorvastatin 20 mg p.o. daily Type 2 diabetes mellitus -last hemoglobin A1c was 11.8% -continue mild sliding scale insulin Primary hypertension -continue amlodipine 10 mg daily ACP, discussed with the patient at bedside for 20 minutes Goals of care discussed with the patient at bedside, full code Plan discussed with Dr. Bhatia Plan discussed with: Patient My Orders My Orders Orders - ROSELIA SANTANA Procedure Category Date Status Time Iron Panel LAB 05/14/24 In Process 06:51 Ferritin LAB 05/14/24 In Process 06:51 Urine Microscopic LAB 05/14/24 Logged 06:51 Sodium Chloride 0.9% PHA 05/14/24 Logged 10:30 Bladder Scan ED NURSING 05/14/24 Verified Date of Service: May 14, 2024 Billing Provider: TORIBIO KELLY MD Common Visit Codes: [id number] INP/OBS CARE(HIGH) ROSELIA SANTANA May 14, 2024 10:25 TORIBIO KELLY MD May 14, 2024 13:11
[2024-05-14] MEDS: cefTRIAXone 1GM/50ML D5W 50 ML IV SCH (10:55)
[2024-05-14] MEDS: FINASTERIDE 5 MG TAB PO SCH (10:56)
[2024-05-14] MEDS: TAMSULOSIN HYDROCHLORIDE 0.4 MG CAP PO SCH (10:56)
[2024-05-14 11:02] LABS: % Iron Saturation 19.1 % (20-55)
[2024-05-14 13:00] VITALS: BP 118/61; PULSE 61; RESP 19; TEMP 98.1; O2SAT 100
[2024-05-14] MEDS: SODIUM CHLORIDE 0.9% 1,000 ML IV SCH (15:35)
[2024-05-14 16:53] VITALS: BP 115/61; PULSE 84; RESP 19; TEMP 97.8; O2SAT 99
[2024-05-14] MEDS: amLODIPine BESYLATE 5 MG TAB PO SCH (16:56)
--- NOTE | 2024-05-14 17:42 | DVHINCON2 ---
Date of service: May 14, 2024 Referring Physician hospitalist Reason for Consultation gross hematuria History of Present Illness History Source: Patient, RN Notes, MD Notes Exam Limitations: No limitations HPI 69 yo male with hx of BPH, left renal cancer s/p nephrectomy. under care of Dr. Ferguson at [facility]. Pt was scheduled for TURP tomorrow but was cancelled due to hosp italization. He has had recurring gross hematuria for the past month. Denies blood thinners. Urine is clearing. Today it is a dark maria luisa. He has no pain. Only complaint is post void dribble. He wears diapers. Home Meds Active Scripts Metformin Hydrochloride (Metformin Hcl) 850 Mg Tab, 850 MG PO BID for 30 Days, #60 TAB 2 Refills Prov:GISELLE PALOMARES MD 04/23/24 Cefdinir (Cefdinir) 300 Mg Cap, 300 MG PO BID for 7 Days, #14 CAP Prov:GISELLE PALOMARES MD 04/23/24 Amlodipine Besylate (Amlodipine Besylate) 10 Mg Tab, 10 MG PO DAILY for 30 Days, #30 TAB 2 Refills Prov:GISELLE PALOMARES MD 04/23/24 Reported Medications Finasteride (Finasteride) 5 Mg Tab, 1 TAB PO DAILY 04/18/24 Tamsulosin Hcl (Tamsulosin Hcl) 0.4 Mg Cap, 1 CAP PO BID 04/18/24 Simvastatin (Simvastatin) 10 Mg Tab, 1 TAB PO 04/18/24 Past Medical History Hemotology/Oncology: Cancer Renal/: Benign prostatic enlarg., Hematuria Patient Family History: FH: pancreatic cancer G8 FATHER Review of Systems Genitourinary: Frequency, Incontinence, Hematuria H&P Exam Vital Signs Vital Signs Date Time Temp Pulse Resp B/P (MAP) Pulse Ox O2 Delivery O2 Flow Rate FiO2 05/14/24 16:56 115/61 05/14/24 16:53 97.8 84 19 99 97.8 05/14/24 07:50 Room Air* 0 21 General Appeara: Well developed, Well nourished, Normal Appearance Pulmonary/Respiratory: Normal inspection, Normal breath sounds, Chest non- tender, Lungs clear Cardiovascular/Chest: Normal inspection, Regular rate, Normal Rhythm Neuro/Mental St: Alert, Oriented Appearance: Appropriate appearance, Appropriate insight Eye contact/ Speech: Cooperative, Good eye contact, Normal speech Skin Exam: Normal inspection, Normal color, Warm/dry Labs/Xrays [place] [id number] Ph: [phone] DIAGNOSTIC IMAGING Diagnostic Imaging Report : [id number] Signed PATIENT: TEZ BARRIOS ACCT: [id number] UNIT: [id number] : 1955 LOC: ER ROOM / BED: / AGE / SEX: 69 / M ADM STATUS: REG ER SERVICE 1623 ORDERING PHYSICIAN: TAINA CARTER DO PROCEDURE(s): ABPL - CT AB PEL WO CON-NO ORAL OR IV REASON: painless hematuria ORDER NUMBER(s): [id number], ACCESSION NUMBER(s): [id number] Exam: CT CT AB PEL WO CON-NO ORAL OR IV History: painless hematuria Comparison Study: 04/19/2024 TECHNIQUE: Multidetector CT of the abdomen and pelvis without contrast. Axial, coronal and sagittal multiplanar reformats were obtained from the axial data set by the technologist. Radiation Dose Information: CT Dose: CTDI volume is 18.38 mGy. Dose-length product is 1013.02 mGy*cm FINDINGS: Bibasilar atelectasis. Heart size is within normal limits. Trace pericardial effusion. Hepatomegaly. Otherwise, liver, spleen, pancreas and left adrenal gland unremarkable. 1.1 cm right adrenal nodule measuring up to -0.7 Hounsfield units which may represent an adenoma. Cholelithiasis with no evidence for acute cholecystitis. The left kidney is not visualized. The right kidney and right ureter unremarkable. Mild wall thickening of the urinary bladder which may be due to inadequate distention. Prostate measures 4.1 by 5.3 by 4.2 cm with extension into the inferior urinary bladder. Stomach is filled with ingested material small bowel loops unremarkable. Appendix is unremarkable. Moderate amount of fecal material within the colon. Descending colon and sigmoid diverticulosis without diverticulitis. Distal rectal wall thickening. Mild fat stranding adjacent to the rectum with minimal mesenteric edema. Moderate to heavy atherosclerotic calcification of the aorta and bilateral iliacs. No evidence of aortic aneurysm. No significant lymphadenopathy. Tiny ventral fat containing supraumbilical and umbilical hernias. Small fat containing left inguinal hernia. Bilateral inguinal lymphadenopathy measuring up to 1.6 cm on the right and 1.1 cm on the left. Mild edema of the bilateral inferior buttock extending to the ischial tuberosity. Intramedullary hilda and dynamic screw fixation of the left femur with the distal end not imaged . Hypertrophic bony changes of the proximal femur which most likely represent sequela prior injury. Diffuse demineralization IMPRESSION: Moderate amount of fecal material within the colon with distal rectal wall thickening and associated adjacent fat stranding. Correlate for stercoral colitis. Mild wall thickening of the urinary bladder which may be due to inadequate distention. Correlation with urinalysis is recommended to exclude cystitis. Colonic diverticulosis without diverticulitis. Trace pericardial effusion. Cholelithiasis without evidence of acute cholecystitis. Enlarged prostate. Recommend correlation with PSA. 1.1 cm right adrenal nodule ATED BY: HONEY COLBERT DO DICTATED DATE/TIME: 05/13/241702 SIGNED BY: HONEY COLBERT DO SIGNED DATE/TIME: 05/13/241702 CC: Labs Test 05/14/24 17:00 05/14/24 08:39 05/13/24 17:18 05/13/24 16:44 Range/Units POC Glucose 152 H 70-106 mg/dl White Blood Count 5.4 4.4-10.8 10^3/uL Red Blood Count 3.52 L 4.5-5.90 10^6/uL Hemoglobin 11.3 L 13.5-17.5 g/dL Hematocrit 32.8 L 41.0-53.0 % Mean Corpuscular Volume 93.2 80.0-100.0 fL Mean Corpuscular Hemoglobin 32.1 H 28.0-32.0 pg Mean Corpuscular Hemoglobin Concent 34.4 32.0-36.0 g/dL Red Cell Distribution Width 13.6 11.8-14.3 % Platelet Count 133 L 140-450 10^3/uL Mean Platelet Volume 7.7 6.9-10.8 fL Neutrophils (%) (Auto) 60.5 37.0-80.0 % Lymphocytes (%) (Auto) 25.9 10.0-50.0 % Monocytes (%) (Auto) 7.8 0.0-12.0 % Eosinophils (%) (Auto) 5.2 0.0-7.0 % Basophils (%) (Auto) 0.6 0.0-2.0 % Neutrophils # (Auto) 3.3 1.6-8.6 10 ^3/uL Lymphocytes # (Auto) 1.4 0.4-5.4 10 ^3/uL Monocytes # (Auto) 0.4 0-1.3 10 ^3/uL Eosinophils # (Auto) 0.3 0-0.8 10 ^3/uL Basophils # (Auto) 0 0-0.2 10 ^3/uL Nucleated Red Blood Cells 0.0 % Sodium Level 142 136-145 mmol/L Potassium Level 4.3 3.5-5.1 mmol/L Chloride Level 111 H 98-107 mmol/L Carbon Dioxide Level 22 20-31 mmol/L Anion Gap 9 5-15 Blood Urea Nitrogen 30 H 9-23 mg/dL Creatinine 1.47 H 0.700-1.30 mg/dL Glomerular Filtration Rate Calc 51 >90 mL/min BUN/Creatinine Ratio 20.4 H 10.0-20.0 Serum Glucose 91 74-106 mg/dL Lactic Acid Level 1.0 0.4-2.0 mmol/L Calcium Level 9.6 8.7-10.4 mg/dL Iron Level 45 L 65-175 ug/dL Total Iron Binding Capacity 236 L 250-425 ug/dL Percent Iron Saturation 19.1 L 20-55 % Ferritin 358.0 H 22-322 ng/mL Urine Color Light-red Yellow Urine Clarity Ex.turbid Clear Urine pH 6.0 5.0-9.0 Urine Specific [place] 1.016 1.001-1.035 Urine Protein 2+ H Negative Urine Ketones Negative Negative Urine Blood 3+ H Negative /uL Urine Nitrite Negative Negative Urine Bilirubin Negative Negative Urine Urobilinogen Normal Negative mg/dL Urine Leukocyte Esterase 1+ Negative /uL [place]rine RBC 26020 0 - 3 /hpf Urine Microscopic WBC 0-3 /HPF Urine Squamous Epithelial Cells None seen <5 /hpf Urine Bacteria None seen None Seen /hpf Urine Yeast (Budding) Few None Seen /hpf Urine Glucose Normal Normal mg/dL Urine Opiates Screen Neg NEGATIVE Urine Fentanyl Screen Neg NEGATIVE Urine Barbiturates Screen Neg NEGATIVE Urine Phencyclidine Screen Neg NEGATIVE Urine Amphetamines Screen Neg NEGATIVE Urine Benzodiazepines Screen Neg NEGATIVE Urine Cocaine Screen Neg NEGATIVE Urine Cannabinoids Screen Neg NEGATIVE Prothrombin Time 10.4 9.3-11.8 sec Prothrombin Time INR 0.98 0.9-1.15 Activated Partial Thromboplast Time 28.2 24.5-34.5 SEC Total Bilirubin 0.6 0.2-1.0 mg/dL Aspartate Amino Transferase (AST) 23 13-40 U/L Alanine Aminotransferase (ALT) 20 7-40 U/L Alkaline Phosphatase 78 46-116 U/L B-Type Natriuretic Peptide 47.10 0-100 pg/mL Total Protein 7.2 5.7-8.2 g/dL Albumin 4.5 3.2-4.8 g/dL Assessment/Plan Problem List: (1) BPH with obstruction/lower urinary tract symptoms (2) Hematuria (3) Solitary kidney, acquired Plan cleared from urology standpoint pt will follow up with Dr. Ferguson as planned Plan discussed with: Patient LADONNAASHLEY JAFFECAMERON NP May 14, 2024 17:42
[2024-05-14 21:00] VITALS: BP 140/58; PULSE 63; RESP 19; TEMP 97.5; O2SAT 99
[2024-05-14] MEDS: ATORVASTATIN 20 MG TAB PO SCH (21:42)
[2024-05-15 01:00] VITALS: BP 138/63; PULSE 63; RESP 19; TEMP 97.5; O2SAT 99
[2024-05-15 05:00] VITALS: BP 115/58; PULSE 61; RESP 19; TEMP 97.5; O2SAT 99
[2024-05-15 08:16] LABS: Basophils # (auto) 0 10 ^3/uL (0-0.2); Basophils % (auto) 0.8 % (0.0-2.0); Eosinophils # (auto) 0.3 10 ^3/uL (0-0.8); Eosinophils % (auto) 5.6 % (0.0-7.0); Hematocrit 30.9 % (41.0-53.0); Hemoglobin 10.6 g/dL (13.5-17.5); Lymphocytes # (auto) 1.2 10 ^3/uL (0.4-5.4); Lymphocytes % (auto) 26.6 % (10.0-50.0); Mean Corpuscular Hemoglobin 31.9 pg (28.0-32.0); Mean Corpuscular Hgb Conc. 34.3 g/dL (32.0-36.0); Mean Corpuscular Volume 93.1 fL (80.0-100.0); Monocytes # (auto) 0.4 10 ^3/uL (0-1.3); Neutrophils # (auto) 2.7 10 ^3/uL (1.6-8.6); Platelet Count (auto) 129 10^3/uL (140-450); Red Blood Cells 3.32 10^6/uL (4.5-5.90); Red Cell Distribution Width 13.4 % (11.8-14.3); White Blood Cell 4.6 10^3/uL (4.4-10.8)
[2024-05-15 08:23] LABS: Potassium 4.5 mmol/L (3.5-5.1); Sodium 142 mmol/L (136-145)
[2024-05-15 08:25] LABS: Anion Gap 7 (5-15); Calcium 9.3 mg/dL (8.7-10.4); Carbon Dioxide 23 mmol/L (20-31)
[2024-05-15 08:27] LABS: Chloride 112 mmol/L (98-107)
[2024-05-15 08:30] LABS: BUN/Creatinine Ratio 18.1 (10.0-20.0)
[2024-05-15 08:32] LABS: Blood Urea Nitrogen 26 mg/dL (9-23); Glucose 114 mg/dL (74-106)
[2024-05-15 08:41] VITALS: BP 115/61; TEMP 36.4
--- NOTE | 2024-05-15 10:10 | DVHDSRES ---
Discharge Summary Date of Admission Resident Creating Document: ROSELIA SANTANA RESIDENT May 13, 2024 at 21:20 Date of Discharge: May 15, 2024 Admitting Diagnosis Shirin Hematuria Wounds: No wounds Present at this time. Labs/Diagnostic Data: Laboratory Results Test 05/15/24 08:01 05/15/24 05:51 05/14/24 08:39 05/13/24 17:18 White Blood Count 4.6 10^3/uL (4.4-10.8) Red Blood Count 3.32 10^6/uL (4.5-5.90) Hemoglobin 10.6 g/dL (13.5-17.5) Hematocrit 30.9 % (41.0-53.0) Mean Corpuscular Volume 93.1 fL (80.0-100.0) Mean Corpuscular Hemoglobin 31.9 pg (28.0-32.0) Mean Corpuscular Hemoglobin Concent 34.3 g/dL (32.0-36.0) Red Cell Distribution Width 13.4 % (11.8-14.3) Platelet Count 129 10^3/uL (140-450) Mean Platelet Volume 7.6 fL (6.9-10.8) Neutrophils (%) (Auto) 59.0 % (37.0-80.0) Lymphocytes (%) (Auto) 26.6 % (10.0-50.0) Monocytes (%) (Auto) 8.0 % (0.0-12.0) Eosinophils (%) (Auto) 5.6 % (0.0-7.0) Basophils (%) (Auto) 0.8 % (0.0-2.0) Neutrophils # (Auto) 2.7 10 ^3/uL (1.6-8.6) Lymphocytes # (Auto) 1.2 10 ^3/uL (0.4-5.4) Monocytes # (Auto) 0.4 10 ^3/uL (0-1.3) Eosinophils # (Auto) 0.3 10 ^3/uL (0-0.8) Basophils # (Auto) 0 10 ^3/uL (0-0.2) Nucleated Red Blood Cells 0.0 % Sodium Level 142 mmol/L (136-145) Potassium Level 4.5 mmol/L (3.5-5.1) Chloride Level 112 mmol/L (98-107) Carbon Dioxide Level 23 mmol/L (20-31) Anion Gap 7 (5-15) Blood Urea Nitrogen 26 mg/dL (9-23) Creatinine 1.44 mg/dL (0.700-1.30) Glomerular Filtration Rate Calc 52 mL/min (>90) BUN/Creatinine Ratio 18.1 (10.0-20.0) Serum Glucose 114 mg/dL (74-106) Calcium Level 9.3 mg/dL (8.7-10.4) POC Glucose 119 mg/dl (70-106) Lactic Acid Level 1.0 mmol/L (0.4-2.0) Iron Level 45 ug/dL (65-175) Total Iron Binding Capacity 236 ug/dL (250-425) Percent Iron Saturation 19.1 % (20-55) Ferritin 358.0 ng/mL (22-322) Urine Color Light-red (Yellow) Urine Clarity Ex.turbid (Clear) Urine pH 6.0 (5.0-9.0) Urine Specific [place] 1.016 (1.001-1.035) Urine Protein 2+ (Negative) Urine Ketones Negative (Negative) Urine Blood 3+ /uL (Negative) Urine Nitrite Negative (Negative) Urine Bilirubin Negative (Negative) Urine Urobilinogen Normal mg/dL (Negative) Urine Leukocyte Esterase 1+ /uL (Negative) Urine RBC 27536 /hpf (0 - 3) Urine Microscopic WBC /HPF (0-3) Urine Squamous Epithelial Cells None seen /hpf (<5) Urine Bacteria None seen /hpf (None Seen) Urine Yeast (Budding) Few /hpf (None Seen) Urine Glucose Normal mg/dL (Normal) Urine Opiates Screen Neg (NEGATIVE) Urine Fentanyl Screen Neg (NEGATIVE) Urine Barbiturates Screen Neg (NEGATIVE) Urine Phencyclidine Screen Neg (NEGATIVE) Urine Amphetamines Screen Neg (NEGATIVE) Urine Benzodiazepines Screen Neg (NEGATIVE) Urine Cocaine Screen Neg (NEGATIVE) Urine Cannabinoids Screen Neg (NEGATIVE) Test 05/13/24 16:44 Prothrombin Time 10.4 sec (9.3-11.8) Prothrombin Time INR 0.98 (0.9-1.15) Activated Partial Thromboplast Time 28.2 SEC (24.5-34.5) Total Bilirubin 0.6 mg/dL (0.2-1.0) Aspartate Amino Transferase (AST) 23 U/L (13-40) Alanine Aminotransferase (ALT) 20 U/L (7-40) Alkaline Phosphatase 78 U/L (46-116) B-Type Natriuretic Peptide 47.10 pg/mL (0-100) Total Protein 7.2 g/dL (5.7-8.2) Albumin 4.5 g/dL (3.2-4.8) Other Laboratory Tests 05/15/24 08:01 Brief Hx & Hospital Course: Hospitalization course: This is a 69-year-old male with past medical history of hypertension, type 2 diabetes, hyperlipidemia, BPH, left kidney cancer status post chemotherapy 22 sessions and left nephrectomy performed two years ago, the patient also reported previous history of anemia after completing chemotherapy. The patient presented to the ED with chief complaint of shirin hematuria. The patient reports that the episode started 24 hours before coming to the ED consistent with shirin blood in his urine but denied any symptoms of dysuria, urinary urgency, frequency or any lower abdominal pain. The patient also reported being constipated with recent episodes of diarrhea. The patient denied fever/chills, chest pain, shortness of breath, dizziness, abdominal pain or any other complaint at this time. Urinalysis was ordered which showed blood 3+ and more than 44100 RBCs without cast. Urology were consulted for shirin hematuria, they assessed and evaluated the patient and recommended cystoscopy as an outpatient. Today, hemoglobin is stable and states that urine color is getting clearer. We explained the patient that he will need to continue his home medications and see Urology as an outpatient for possible cystoscopy. Patient agrees and understands the plan. Admission diagnosis: Shirin hematuria Discharge Plan -Continue home medications -F/U appointment with Urology as outpatient Consults/Reason for consult Urology for hematuria, recommended outpatient cystoscopy Operations or Procedures Exam: CT CT AB PEL WO CON-NO ORAL OR IV History: painless hematuria Comparison Study: 04/19/2024 TECHNIQUE: Multidetector CT of the abdomen and pelvis without contrast. Axial, coronal and sagittal multiplanar reformats were obtained from the axial data set by the technologist. Radiation Dose Information: CT Dose: CTDI volume is 18.38 mGy. Dose-length product is 1013.02 mGy*cm FINDINGS: Bibasilar atelectasis. Heart size is within normal limits. Trace pericardial effusion. Hepatomegaly. Otherwise, liver, spleen, pancreas and left adrenal gland unremarkable. 1.1 cm right adrenal nodule measuring up to -0.7 Hounsfield units which may represent an adenoma. Cholelithiasis with no evidence for acute cholecystitis. The left kidney is not visualized. The right kidney and right ureter unremarkable. Mild wall thickening of the urinary bladder which may be due to inadequate distention. Prostate measures 4.1 by 5.3 by 4.2 cm with extension into the inferior urinary bladder. Stomach is filled with ingested material small bowel loops unremarkable. Appendix is unremarkable. Moderate amount of fecal material within the colon. Descending colon and sigmoid diverticulosis without diverticulitis. Distal rectal wall thickening. Mild fat stranding adjacent to the rectum with minimal mesenteric edema. Moderate to heavy atherosclerotic calcification of the aorta and bilateral iliacs. No evidence of aortic aneurysm. No significant lymphadenopathy. Tiny ventral fat containing supraumbilical and umbilical hernias. Small fat containing left inguinal hernia. Bilateral inguinal lymphadenopathy measuring up to 1.6 cm on the right and 1.1 cm on the left. Mild edema of the bilateral inferior buttock extending to the ischial tuberosity. Intramedullary hilda and dynamic screw fixation of the left femur with the distal end not imaged . Hypertrophic bony changes of the proximal femur which most likely represent sequela prior injury. Diffuse demineralization IMPRESSION: Moderate amount of fecal material within the colon with distal rectal wall thickening and associated adjacent fat stranding. Correlate for stercoral colitis. Mild wall thickening of the urinary bladder which may be due to inadequate distention. Correlation with urinalysis is recommended to exclude cystitis. Colonic diverticulosis without diverticulitis. Trace pericardial effusion. Cholelithiasis without evidence of acute cholecystitis. Enlarged prostate. Recommend correlation with PSA. 1.1 cm right adrenal nodule CHEST RADIOGRAPH Indication: sob Technique: Single frontal view of the chest was obtained Comparison: None FINDINGS: Lines and Tubes: MediPort in place from a right internal jugular vein with the tip in the superior vena cava above the right atrium. There is no pneumothorax on the right. Lungs: No focal consolidation. Pleura: No effusion. No pneumothorax. Cardiomediastinal contours: Unremarkable Bones: No acute osseous abnormality. IMPRESSION: 1. No acute cardiopulmonary disease. 2. MediPort in place from the right internal jugular vein with the tip in the superior vena cava above the right atrium. There is no pneumothorax. Condition at Discharge: Good Final Diagnosis/Problems List Acute shirin hematuria Ruled out Urolithiasis Acute urinary retention ruled out Possible UTI Hx of kidney cancer with left nephrectomy and 22 sessions of chemotherapy two years ago Acute on chronic anemia likely due to hematuria Possible anemia of chronic disease History of kidney cancer, s/p chemotherapy and left nephrectomy two years ago CKD stage IIIA BPH Dyslipidemia Type 2 diabetes mellitus Primary hypertension Discharge Disposition: Home Discharge Instruct/Medications Diet: Regular Activity: No Restrictions, As Tolerated Follow Up/Referral: F/U with his PCP in 1 week F/U with Urology as an outpatient for possible cystoscopy Medications: Continue home medications Discharge Statement: "Patient was advised to return to the ER or call 911 if any headaches, dizziness, shortness of breath, chest pain, abdominal pain, bleeding, fevers, or worsening of medical condition. Patient was counseled about treatment plan, medications, possible side effects, patientverbalized understanding. All questions were answered to the best of my ability. This discharge took greater then 30 minutes in planning, reviewing documentation, counseling the patient, and discussing with other team members." ASSESSMENT ASSESSMENT Assessment Acute shirin hematuria Ruled out Urolithiasis Acute urinary retention ruled out Possible UTI Hx of kidney cancer with left nephrectomy and 22 sessions of chemotherapy two years ago Acute on chronic anemia likely due to hematuria Possible anemia of chronic disease History of kidney cancer, s/p chemotherapy and left nephrectomy two years ago CKD stage IIIA BPH Dyslipidemia Type 2 diabetes mellitus Primary hypertension Date of Service: May 15, 2024 Billing Provider: TORIBIO KELLY MD Common Visit Codes: 64337-RAC/OBS DISCH DAY >30min ROSELIA SANTANA RESIDENT May 15, 2024 10:10 TORIBIO KELLY MD May 19, 2024 09:46
== END 2024-05-15 09:10 | disposition home or self-care (01) | DRG 690 ==
LOC: ER 15:55 → OVERFLOW 21:20 → CENTRAL 21:22 → OVERFLOW 21:22 → CENTRAL 05-14 05:00
PROVIDERS: ADMIT Student in an Organized Health Care Education/Training Program; ATTEND Student in an Organized Health Care Education/Training Program
DX: N30.01 Acute cystitis with hematuria (principal); E87.20 Acidosis, unspecified; N13.8 Other obstructive and reflux uropathy; K57.30 Diverticulosis of large intestine without perforation or abscess without bleeding; F17.210 Nicotine dependence, cigarettes, uncomplicated; E78.5 Hyperlipidemia, unspecified; Z96.642 Presence of left artificial hip joint; K52.89 Other specified noninfective gastroenteritis and colitis; I12.9 Hypertensive chronic kidney disease with stage 1 through stage 4 chronic kidney disease, or unspecified chronic kidney disease; E11.22 Type 2 diabetes mellitus with diabetic chronic kidney disease; N40.1 Benign prostatic hyperplasia with lower urinary tract symptoms; N18.31 Chronic kidney disease, stage 3a; D63.8 Anemia in other chronic diseases classified elsewhere; Z85.07 Personal history of malignant neoplasm of pancreas; Z90.5 Acquired absence of kidney; Z79.899 Other long term (current) drug therapy; Z79.84 Long term (current) use of oral hypoglycemic drugs; D50.0 Iron deficiency anemia secondary to blood loss (chronic)
CPT/HCPCS: 36415; 71045; 74176; 80048; 80053; 80307; 81001; 82728; 82962; 83540; 83550; 83605; 83880; 85025; 85610; 85730; 87086; G0378; J1815

== ENCOUNTER 2024-07-29 19:53 | Inpatient (IN) | payer MEDICARE ==
[~2024-07-29] VITALS: Ht 188 cm; Wt 103.6 kg
--- NOTE | 2024-07-29 20:03 | ED.PDOC ---
Musculoskeletal HPI Comments HPI: 69 year old male CORAL presents to the ED with chief complaint of right hip pain s/p mechanical fall. Patient reports that he had gotten home from the grocery store and he had moved too fast in his home, slipping on his slippery floor and falling onto his right hip. Patient relays that he now has right hip pain and is not able to lift his leg up from the hip, but he is still able to move his right knee and foot. EMS states patient's vitals were stable on route to the ED. Patient denies being on blood thinners. Patient denies any head injury, LOC, dizziness, syncope, or further injury. Initial Vitals: Temp: BP: HR: RR: O2 Sat: Medical History: DM, Kidney cancer, HLD Surgical History: Left kidney resection due to cancer. Social History: Denies smoking, ETOH, or drug use. Medications: Reviewed. Allergies: NKDA HPI: Poor Historian. No blood thinners. Denies any head or neck injury or loss of consciousness. That was a slip and fall mechanical fall from a standing position because I was moving too fast and the floor was slippery REVIEW OF SYSTEMS: CONSTITUTIONAL: Denies acute: fever, diaphoresis, chills, generalized weakness. HEAD: Denies acute: headache, photophobia Eyes: Denies acute: Double vision, vision loss, eye pain, eye discharge. EARS: Denies acute: tinnitus, hearing loss, ear discharge, ear pain, THROAT: Denies acute: sore throat, swelling, difficulty swallowing , pain with swallowing, change in voice. NECK: Denies acute: neck pain, neck swelling, stiff neck. HEART: Denies acute : chest pain, palpitations, LUNGS: Denies acute: SOB, wheezing, cough, hemoptysis ABDOMEN: Denies acute: abdominal pain, Nausea, Vomiting, diarrhea, melena , hematemesis, hematochezia SKIN: Denies acute: rash, redness, lesions, itchiness. EXTREMITIES: Denies acute: calf pain, numbness, tingling, weakness, Denies acute: Low back pain. Neuro: Denies acute: focal neurological deficit, motor or sensory focal neurological deficit, tremors, seizure like activity, confusion, dizziness, change in mental status, loss of bowel or bladder function, cauda equina like symptoms. : Denies acute: dysuria, hematuria, flank pain, increase in urinary frequency. PSYCH: Denies acute: hallucination, suicidal ideation, homicidal ideation. PHYSICAL EXAM: General: ----mild----acute distress, awake and alert. Head: normocephalic, atraumatic. Neck: supple, trachea is midline, no swelling. Throat: Normal phonation. Eyes:, no erythema, no purulent discharge, no proptosis, no icterus. Heart: regular rate, regular rhythm, no significant murmur appreciated. Lungs: no apparent respiratory distress, Able to speak in full sentences. No wheezing, no rhonchi, no crackles. No stridors Clear to auscultation bilaterally. Abdomen: non tender to palpation, non distended, soft, no guarding, no rebound, + bowel sounds. Neuro: Awake, Alert, oriented to name, self, situation, follows commands GCS=15. Speech is normal. Skin: no petechia, no purpura, no cyanosis, non-pale, not jaundice. Lower extremities: --2/4 bilateral - Pitting edema no deformity, no focal swelling, no calf TTP. Makes eye contact. moves all four extremities. Decreased range of motion of right lower extremity secondary to right hip pain. Decreased range of motion of the right hip flexion due to pain. Patient points specifically to a right hip of the lateral aspect of the joint where his pain is. Pelvic rock and does not produce any pain. Patient is neurovascularly intact in the affected extremity. Sensory and motor are present in the affected extremity. Patient is able to bend his knees somewhat with the assistance. Face: no apparent facial droop. Pedal pulses are palpable. ED COURSE: Time Seen by MD: 19:59 Reviewed Notes: Nurses Notes, Basket Turner Notes, Medications, Allergies Allergies: Coded Allergies: NO KNOWN ALLERGIES (Unverified , 01/06/18) Home Meds Active Scripts Metformin Hydrochloride (Metformin Hcl) 850 Mg Tab, 850 MG PO BID for 30 Days, #60 TAB 2 Refills Prov:GISELLE PALOMARES MD 04/23/24 Cefdinir (Cefdinir) 300 Mg Cap, 300 MG PO BID for 7 Days, #14 CAP Prov:GISELLE PALOMARES MD 04/23/24 Amlodipine Besylate (Amlodipine Besylate) 10 Mg Tab, 10 MG PO DAILY for 30 Days, #30 TAB 2 Refills Prov:GISELLE PALOMARES MD 04/23/24 Reported Medications Metoprolol Succinate (Metoprolol Succinate Er) 25 Mg Tab, 0.5 TAB PO DAILY 07/30/24 Lisinopril (Lisinopril) 2.5 Mg Tab, 1 TAB PO DAILY 07/30/24 Finasteride (Finasteride) 5 Mg Tab, 1 TAB PO DAILY 04/18/24 Tamsulosin Hcl (Tamsulosin Hcl) 0.4 Mg Cap, 1 CAP PO BID 04/18/24 Simvastatin (Simvastatin) 10 Mg Tab, 1 TAB PO 04/18/24 Information Source: Patient, Emergency Med Personnel Mode of Arrival: EMS Location: Right Was a procedure done? Was a procedure done?: No Differential Diagnosis EXT Differential Diagnosis: Compartment Syndrome, Fracture, Sprain, Dislocation, Laceration, Contusion, Strain, Neurovascular injury, Arthritis, Other (Hematoma, bleeding) X-Ray, Labs, Meds, VS Vital Signs Date Time Temp Pulse Resp B/P (MAP) Pulse Ox O2 Delivery O2 Flow Rate FiO2 07/30/24 06:11 76 07/30/24 05:42 98.1 69 15 94/43 (60) 95 98.1 07/30/24 01:43 117/64 07/30/24 01:30 78 17 136/94 (108) 95 07/30/24 01:30 78 07/30/24 01:30 78 17 95 Room Air* 0 21 07/29/24 20:05 98.4 59 18 155/74 (101) 98 98.4 Lab Test 07/30/24 01:08 07/29/24 23:18 07/29/24 22:23 07/29/24 20:18 Range/Units Urine Color Light-yellow Yellow Urine Clarity Clear Clear Urine pH 5.5 5.0-9.0 Urine Specific [place] 1.020 1.001-1.035 Urine Protein 2+ H Negative Urine Ketones 2+ H Negative Urine Blood 3+ H Negative /uL Urine Nitrite Negative Negative Urine Bilirubin Negative Negative Urine Urobilinogen Normal Negative mg/dL Urine Leukocyte Esterase 2+ Negative /uL Urine RBC 127 0 - 3 /hpf Urine Microscopic WBC 78 H 0-3 /HPF Urine Squamous Epithelial Cells Few <5 /hpf Urine Calcium Oxalate Crystals Few None Seen Urine Bacteria None seen None Seen /hpf Urine Mucus Few None Seen Urine Glucose Normal Normal mg/dL Troponin I High Sensitivity 12 13 8 </=54 ng/L White Blood Count 7.8 4.4-10.8 10^3/uL Red Blood Count 3.26 L 4.5-5.90 10^6/uL Hemoglobin 10.3 L 13.5-17.5 g/dL Hematocrit 30.5 L 41.0-53.0 % Mean Corpuscular Volume 93.6 80.0-100.0 fL Mean Corpuscular Hemoglobin 31.5 28.0-32.0 pg Mean Corpuscular Hemoglobin Concent 33.7 32.0-36.0 g/dL Red Cell Distribution Width 14.0 11.8-14.3 % Platelet Count 131 L 140-450 10^3/uL Mean Platelet Volume 7.4 6.9-10.8 fL Neutrophils (%) (Auto) 74.7 37.0-80.0 % Lymphocytes (%) (Auto) 15.4 10.0-50.0 % Monocytes (%) (Auto) 6.7 0.0-12.0 % Eosinophils (%) (Auto) 2.6 0.0-7.0 % Basophils (%) (Auto) 0.6 0.0-2.0 % Neutrophils # (Auto) 5.8 1.6-8.6 10 ^3/uL Lymphocytes # (Auto) 1.2 0.4-5.4 10 ^3/uL Monocytes # (Auto) 0.5 0-1.3 10 ^3/uL Eosinophils # (Auto) 0.2 0-0.8 10 ^3/uL Basophils # (Auto) 0.1 0-0.2 10 ^3/uL Nucleated Red Blood Cells 0.1 % Sodium Level 140 136-145 mmol/L Potassium Level 4.8 3.5-5.1 mmol/L Chloride Level 107 98-107 mmol/L Carbon Dioxide Level 24 20-31 mmol/L Anion Gap 9 5-15 Blood Urea Nitrogen 28 H 9-23 mg/dL Creatinine 1.32 H 0.700-1.30 mg/dL Glomerular Filtration Rate Calc 58 >90 mL/min BUN/Creatinine Ratio 21.2 H 10.0-20.0 Serum Glucose 152 H 74-106 mg/dL Hemoglobin A1c 6.0 H <5.7 % A1C Lactic Acid Level 1.7 0.4-2.0 mmol/L Calcium Level 9.6 8.7-10.4 mg/dL Total Bilirubin 1.0 0.2-1.0 mg/dL Aspartate Amino Transferase (AST) 27 13-40 U/L Alanine Aminotransferase (ALT) 31 7-40 U/L Alkaline Phosphatase 76 46-116 U/L B-Type Natriuretic Peptide 51.18 0-100 pg/mL Total Protein 6.5 5.7-8.2 g/dL Albumin 4.1 3.2-4.8 g/dL [place] [id number] Ph: [phone] DIAGNOSTIC IMAGING Diagnostic Imaging Report : [id number] Signed PATIENT: TEZ BARRIOS ACCT: [id number] UNIT: [id number] : 1955 LOC: ER ROOM / BED: / AGE / SEX: 69 / M ADM STATUS: REG ER SERVICE 58 ORDERING PHYSICIAN: TAINA CARTER DO PROCEDURE(s): ABPL - CT AB PEL WO CON-NO ORAL OR IV REASON: R hip pain/fall injury ORDER NUMBER(s): [id number], ACCESSION NUMBER(s): [id number] Procedure: CT CT AB PEL WO CON-NO ORAL OR IV 07/29/2024 09:52 PM Indication: R hip pain/fall injury Comparison Study: CT CT AB PEL WO CON-NO ORAL OR IV on DOS: 05/13/24, CT CT AB PEL WO CON-NO ORAL OR IV on DOS: 04/19/24 Technique: Axial images were obtained and reformatted in coronal and sagittal planes. All CT scans at this medical facility are performed using dose modulation techniques as appropriate to a performed exam including the following: Automated exposure control was utilized; adjustment of the MA and/or KV according to patient size; and use of iterative reconstruction technique. CT Dose: CTDI volume is 18.9 mGy. Dose-length product is 11 70 mGy*cm FINDINGS: Lower Chest: Unremarkable. Hepatobiliary: Cholelithiasis with no evidence of cholecystitis. Spleen: Unremarkable. Pancreas: Unremarkable. Adrenal Glands: Unremarkable. tract: The left kidney is identified. The right kidney is unremarkable without hydronephrosis or nephrolithiasis. No hydroureter uterus. The urinary bladder is unremarkable. GI tract: The stomach is grossly normal in appearance. No evidence of small bowel obstruction. The large bowel is unremarkable. The appendix is not identified. Lymphatics: No mesenteric, retroperitoneal or periportal lymphadenopathy. Vasculature: The abdominal aorta is normal in caliber. Pelvic Organs: Unremarkable Bones/soft tissues: Acute comminuted right intertrochanteric fracture. A vertical fracture seen in the lateral right femoral neck. The femoral head is intact. No evidence of hip dislocation. [place] left intertrochanteric fracture status post ORIF. Other: None. IMPRESSION: 1. Acute comminuted right intertrochanteric fracture. A nondisplaced vertical fracture of the lateral aspect of the right femoral neck noted. ATED BY: MELISSA WEINSTEIN MD DICTATED DATE/TIME: 07/29/242227 SIGNED BY: MELISSA WEINSTEIN MD SIGNED DATE/TIME: 07/29/242227 CC: Time of 1ST Reevaluation: 20:59 Reevaluation 1ST: Unchanged Patient Education/Counseling: Diagnosis, Treatment Family Education/Counseling: No Family Present Comments Patient presented with the above HPI.--right hip pain/fall----workup was initiated. patient was found with the above mentioned diagnosis. the following medications were ordered: please refer to order lists of meds and tests obtained by myself Dr. Carter. Patient ED course and VS have been stabilized. Patient has been reassessed in the ED and remained in a stable condition. Pertinent incidental findings were discussed with the patient and/or family. Patient/family voices understanding and is agreeable with plan. Patient has been observed in the ED adequate length of time to insure improvement/stability. Escalation of care considered: Consideration of escalation to observation or admission Patient is not on blood thinners. No head or neck injury. Denies any pain anywhere else in his body. This was an isolated injury. Patient is neurovascularly intact in the affected extremity. A consult was placed for Orthopedics. I have never communicated with them never heard back from them during my ED course with the patient. Patient was ADMITTED to the medicine team for further evaluation and treatment of their presentation. All the reports of any imaging studies that were ordered by myself were reviewed by myself. Departure 1 Departure Time of Disposition: 22:46 Impression: Primary Impression: Femoral neck fracture Disposition: ADMITTED INPATIENT Admit to: Tele Condition: Guarded Discharged With: Self Critical Care Note Critical Care Time?: No I personally scribed for TAINA CARTER DO ([email or web address]) on 07/29/24 at 20:03. Electronically submitted by Edu Maya ([email or web address]). I personally scribed for TAINA CARTER DO ([email or web address]) on 07/30/24 at 21:36. Electronically submitted by Arya Agrawal ([email or web address]). TAINA CARTER DO Jul 29, 2024 20:03
[2024-07-29 20:28] LABS: Basophils # (auto) 0.1 10 ^3/uL (0-0.2); Basophils % (auto) 0.6 % (0.0-2.0); Eosinophils # (auto) 0.2 10 ^3/uL (0-0.8); Eosinophils % (auto) 2.6 % (0.0-7.0); Hematocrit 30.5 % (41.0-53.0); Hemoglobin 10.3 g/dL (13.5-17.5); Lymphocytes # (auto) 1.2 10 ^3/uL (0.4-5.4); Lymphocytes % (auto) 15.4 % (10.0-50.0); Mean Corpuscular Hemoglobin 31.5 pg (28.0-32.0); Mean Corpuscular Hgb Conc. 33.7 g/dL (32.0-36.0); Mean Corpuscular Volume 93.6 fL (80.0-100.0); Monocytes # (auto) 0.5 10 ^3/uL (0-1.3); Monocytes % (auto) 6.7 % (0.0-12.0); Neutrophils # (auto) 5.8 10 ^3/uL (1.6-8.6); Neutrophils % (auto) 74.7 % (37.0-80.0); Nucleated Red Blood Cells % 0.1 %; Platelet Count (auto) 131 10^3/uL (140-450); Red Blood Cells 3.26 10^6/uL (4.5-5.90); White Blood Cell 7.8 10^3/uL (4.4-10.8)
[2024-07-29 20:50] LABS: Alanine Aminotransferase 31 U/L (7-40); Albumin 4.1 g/dL (3.2-4.8); Alkaline Phosphatase 76 U/L (46-116); Anion Gap 9 (5-15); Aspartate Aminotransferase 27 U/L (13-40); BUN/Creatinine Ratio 21.2 (10.0-20.0); Calcium 9.6 mg/dL (8.7-10.4); Carbon Dioxide 24 mmol/L (20-31); Potassium 4.8 mmol/L (3.5-5.1); Sodium 140 mmol/L (136-145); Total Protein 6.5 g/dL (5.7-8.2)
[2024-07-29 20:52] LABS: Blood Urea Nitrogen 28 mg/dL (9-23); Chloride 107 mmol/L (98-107); Glucose 152 mg/dL (74-106)
[2024-07-29] MEDS: HYDROcodone-ACET 5/325MG TAB PO ONE (21:26)
--- NOTE | 2024-07-29 22:30 | DVH ---
Procedure: CT CT AB PEL WO CON-NO ORAL OR IV 07/29/2024 09:52 PM Indication: R hip pain/fall injury Comparison Study: CT CT AB PEL WO CON-NO ORAL OR IV on DOS: 05/13/24, CT CT AB PEL WO CON-NO ORAL OR IV on DOS: 04/19/24 Technique: Axial images were obtained and reformatted in coronal and sagittal planes. All CT scans at this medical facility are performed using dose modulation techniques as appropriate to a performed e xam including the following: Automated exposure control was utilized; adjustment of the MA and/or KV according to patient size; and use of iterative reconstruction technique. CT Dose: CTDI volume is 18. 9 mGy. Dose-length product is 11 70 mGy*cm FINDINGS: Lower Chest: Unremarkable. Hepatobiliary: Cholelithiasis with no evidence of cholecystitis. Spleen: Unremarkable. Pancreas: Unremarkable. Adrenal Glands: Unremarkable. tract: The left kidney is identified. The right kidney is unremarkable without hydronephrosis or n ephrolithiasis. No hydroureter uterus. The urinary bladder is unremarkable. GI tract: The stomach is grossly normal in appearance. No evidence of small bowel obstruction. The la rge bowel is unremarkable. The appendix is not identified. Lymphatics: No mesenteric, retroperitoneal or periportal lymphadenopathy. Vasculature: The abdominal aorta is normal in caliber. Pelvic Organs: Unremarkable Bones/soft tissues: Acute comminuted right intertrochanteric fracture. A vertical fracture seen in t he lateral right femoral neck. The femoral head is intact. No evidence of hip dislocation. [place] left intertrochanteric fracture status post ORIF. Other: None. IMPRESSION: 1. Acute comminuted right intertrochanteric fracture. A nondisplaced vertical fracture of the latera l aspect of the right femoral neck noted.
[2024-07-30 01:12] LABS: Urine Bacteria None Seen /hpf (None Seen)
[2024-07-30 01:22] LABS: Urine Blood 3+ /uL (Negative); Urine Clarity Clear (Clear); Urine Color Light-Yellow (Yellow); Urine Mucus FEW (None Seen); Urine Protein, UAD 2+ (Negative); Urine Squamous Epithelial Cell FEW /hpf (<5); Urine Urobilinogen Normal (Negative); Urine WBC 78 /HPF (0-3); Urine pH 5.5 (5.0-9.0)
[2024-07-30 01:30] VITALS: PULSE 78; RESP 17; O2SAT 95
[2024-07-30] MEDS: fentaNYL CITRATE 100 MCG/2 ML VL IV ONE (01:43)
[2024-07-30] MEDS ORDERED: ONDANSETRON HCL 4 MG/2 ML VIAL IV PRN (07:30)
--- NOTE | 2024-07-30 07:33 | DVHHP2 ---
History of Present Illness Reason for Visit: Status post fall History of Present Illness Mateo Solomon is a 69-year-old male with past medical history of hypertension, hyperlipidemia, diabetes type 2, prostate surgery, BPH, left kidney cancer on chemo with left nephrectomy, and left hip IM in 2018 who presents to the ED with right lower extremity pain status post fall. Patient reports that he was loading his groceries from his car into the kitchen and tried to make a step and slipped and fell into his laundry room. He also reports that he is hard of hearing. He states that the pain is 8/10 poking in nature and constant. Patient denies any chest pain, shortness of breath, fever, chills, recent sick contacts, lightheadedness, dizziness, abdominal pain, nausea, vomiting, or diarrhea. Patient also denies any urinary symptoms. Cardiovascular: HTN, hyperipidemia Renal/: Benign prostatic enlarg. Endocrine: Diabetes Past Medical History Left kidney cancer status post chemo Past Surgical History: Other (Prostate surgery, left nephrectomy, and left hip IM in 2018) Family History: Other (Both parents ) Smoke: Quit ALCOHOL: none Drugs: None Lives: Alone Domestic Violence: Neg Review of Systems Musculoskeletal: other (Right hip pain) Allergies: Coded Allergies: NO KNOWN ALLERGIES (Unverified , 01/06/18) Medications Current Medications Medications Dose Ordered Sig/Jessica Route Start Time Stop Time Status Last Admin Dose Admin Sodium Chloride 1,000 ml @ 120 mls/hr Q8H20M IV 07/30/24 07:30 UNV Acetaminophen/ Hydrocodone Bitart 1 tab Q4HP PRN PO 07/30/24 07:30 UNV Ondansetron HCl 4 mg Q4HP PRN IV 07/30/24 07:30 UNV Acetaminophen 650 mg Q6HP PRN PO 07/30/24 07:30 UNV Morphine Sulfate 2 mg Q4HPRN PRN IV 07/30/24 07:30 UNV Ceftriaxone Sodium 50 ml @ 100 mls/hr DAILY@09 IV 07/30/24 09:00 UNV Exam Vital Signs Vital Signs Date Time Temp Pulse Resp B/P (MAP) Pulse Ox O2 Delivery O2 Flow Rate FiO2 07/30/24 06:11 76 07/30/24 05:42 98.1 15 94/43 (60) 95 98.1 07/30/24 01:30 Room Air* 0 21 General Appearance: Alert, Oriented X3, Cooperative, No acute distress HEENT: Atraumatic, PERRLA, EOMI, Mucous membr. moist/pink Respiratory: Clear to auscultation, Normal air movement Cardiovascular: Normal S1, Normal S2, No murmurs Abdominal: Normal bowel sounds, Soft, No tenderness, No hepatospenomegaly, No masses Extremities: No clubbing, No cyanosis Neuro: Normal speech, Normal tone, Sensation intact Psych/Mental Status: Mental status NL, Mood NL Labs/Xrays Labs Test 07/30/24 01:08 07/29/24 23:18 07/29/24 20:18 Range/Units Urine Color Light-yellow Yellow Urine Clarity Clear Clear Urine pH 5.5 5.0-9.0 Urine Specific [place] 1.020 1.001-1.035 Urine Protein 2+ H Negative Urine Ketones 2+ H Negative Urine Blood 3+ H Negative /uL Urine Nitrite Negative Negative Urine Bilirubin Negative Negative Urine Urobilinogen Normal Negative mg/dL Urine Leukocyte Esterase 2+ Negative /uL Urine RBC 127 0 - 3 /hpf Urine Microscopic WBC 78 H 0-3 /HPF Urine Squamous Epithelial Cells Few <5 /hpf Urine Calcium Oxalate Crystals Few None Seen Urine Bacteria None seen None Seen /hpf Urine Mucus Few None Seen Urine Glucose Normal Normal mg/dL Troponin I High Sensitivity 12 </=54 ng/L White Blood Count 7.8 4.4-10.8 10^3/uL Red Blood Count 3.26 L 4.5-5.90 10^6/uL Hemoglobin 10.3 L 13.5-17.5 g/dL Hematocrit 30.5 L 41.0-53.0 % Mean Corpuscular Volume 93.6 80.0-100.0 fL Mean Corpuscular Hemoglobin 31.5 28.0-32.0 pg Mean Corpuscular Hemoglobin Concent 33.7 32.0-36.0 g/dL Red Cell Distribution Width 14.0 11.8-14.3 % Platelet Count 131 L 140-450 10^3/uL Mean Platelet Volume 7.4 6.9-10.8 fL Neutrophils (%) (Auto) 74.7 37.0-80.0 % Lymphocytes (%) (Auto) 15.4 10.0-50.0 % Monocytes (%) (Auto) 6.7 0.0-12.0 % Eosinophils (%) (Auto) 2.6 0.0-7.0 % Basophils (%) (Auto) 0.6 0.0-2.0 % Neutrophils # (Auto) 5.8 1.6-8.6 10 ^3/uL Lymphocytes # (Auto) 1.2 0.4-5.4 10 ^3/uL Monocytes # (Auto) 0.5 0-1.3 10 ^3/uL Eosinophils # (Auto) 0.2 0-0.8 10 ^3/uL Basophils # (Auto) 0.1 0-0.2 10 ^3/uL Nucleated Red Blood Cells 0.1 % Sodium Level 140 136-145 mmol/L Potassium Level 4.8 3.5-5.1 mmol/L Chloride Level 107 98-107 mmol/L Carbon Dioxide Level 24 20-31 mmol/L Anion Gap 9 5-15 Blood Urea Nitrogen 28 H 9-23 mg/dL Creatinine 1.32 H 0.700-1.30 mg/dL Glomerular Filtration Rate Calc 58 >90 mL/min BUN/Creatinine Ratio 21.2 H 10.0-20.0 Serum Glucose 152 H 74-106 mg/dL Lactic Acid Level 1.7 0.4-2.0 mmol/L Calcium Level 9.6 8.7-10.4 mg/dL Total Bilirubin 1.0 0.2-1.0 mg/dL Aspartate Amino Transferase (AST) 27 13-40 U/L Alanine Aminotransferase (ALT) 31 7-40 U/L Alkaline Phosphatase 76 46-116 U/L B-Type Natriuretic Peptide 51.18 0-100 pg/mL Total Protein 6.5 5.7-8.2 g/dL Albumin 4.1 3.2-4.8 g/dL Procedure: CT CT AB PEL WO CON-NO ORAL OR IV 07/29/2024 09:52 PM Indication: R hip pain/fall injury Comparison Study: CT CT AB PEL WO CON-NO ORAL OR IV on DOS: 05/13/24, CT CT AB PEL WO CON-NO ORAL OR IV on DOS: 04/19/24 Technique: Axial images were obtained and reformatted in coronal and sagittal planes. All CT scans at this medical facility are performed using dose modulation techniques as appropriate to a performed exam including the following: Automated exposure control was utilized; adjustment of the MA and/or KV according to patient size; and use of iterative reconstruction technique. CT Dose: CTDI volume is 18.9 mGy. Dose-length product is 11 70 mGy*cm FINDINGS: Lower Chest: Unremarkable. Hepatobiliary: Cholelithiasis with no evidence of cholecystitis. Spleen: Unremarkable. Pancreas: Unremarkable. Adrenal Glands: Unremarkable. tract: The left kidney is identified. The right kidney is unremarkable without hydronephrosis or nephrolithiasis. No hydroureter uterus. The urinary bladder is unremarkable. GI tract: The stomach is grossly normal in appearance. No evidence of small bowel obstruction. The large bowel is unremarkable. The appendix is not identified. Lymphatics: No mesenteric, retroperitoneal or periportal lymphadenopathy. Vasculature: The abdominal aorta is normal in caliber. Pelvic Organs: Unremarkable Bones/soft tissues: Acute comminuted right intertrochanteric fracture. A vertical fracture seen in the lateral right femoral neck. The femoral head is intact. No evidence of hip dislocation. [place] left intertrochanteric fracture status post ORIF. Other: None. IMPRESSION: 1. Acute comminuted right intertrochanteric fracture. A nondisplaced vertical fracture of the lateral aspect of the right femoral neck noted. Assessment/Plan Assessment/Plan Assessment Right lower extremity pain status post fall Acute comminuted right intertrochanteric fracture UTI History of hypertension History of hyperlipidemia History of diabetes type 2 Anemia Thrombocytopenia SHAMAR History of hypertension History of hyperlipidemia History of left kidney cancer status post chemo History of left nephrectomy History of left hip IM 2018 History of prostate surgery Plan Admit to med surge EKG Antiemetics Pain management Troponin negative x3 BNP EKG CT abdomen pelvis Lactic level UA Hemoglobin A1c ISS and Accu-Cheks DVT prophylaxis-SCDs PUD prophylaxis-not indicated no history of GERD or GI bleed Home medications reconciled Discussed plan of care with patient and nurse Plan discussed with: Patient My Orders Orders - LYNDSEY CASANOVA [employer] Procedure Category Date Status Time Hydrocodone-Acet PHA 07/30/24 Logged 5/325mg Tab ([place] 07:15 Admit ADMIT 07/30/24 Transmitted 07:22 Allergies JORDYN 07/30/24 In Process 07:22 Code Status CODE 07/30/24 Transmitted 07:22 Sodium Chloride 0.9% PHA 07/30/24 Logged 07:30 Hydrocodone-Acet PHA 07/30/24 Logged 5/325mg Tab ([place] 07:30 Ondansetron Hcl PHA 07/30/24 Logged (Z[place]fr[place]) 07:30 Complete Blood Count LAB 07/31/24 Verified 04:00 Comprehensive LAB 07/31/24 Verified Metabolic Panel 04:00 Npo (Nothing By DIET 07/30/24 Transmitted Mouth) Diet Breakfast Acetaminophen Tablet PHA 07/30/24 Logged (Tylenol Tablet) 07:30 Morphine Sulfate PHA 07/30/24 Logged Injection 07:30 Ceftriaxone 1gm/50ml PHA 07/30/24 Logged D5w (Rocephin) 09:00 Sequential JORDYN 07/30/24 In Process Compression Device 07:28 Date of Service: Jul 30, 2024 Billing Provider: LYNDSEY CASANOVA Common Visit Codes: [id number] INP/OBS CARE (HIGH) LYNDSEY CASANOVA Jul 30, 2024 07:33
[2024-07-30] MEDS ORDERED: METO25TA93 PO (07:37)
[2024-07-30] MEDS ORDERED: LISI2.5T47 PO (07:37)
[2024-07-30] MEDS: HYDROcodone-ACET 5/325MG TAB PO ONE (07:45)
[2024-07-30] MEDS ORDERED: DEXTROSE (50%) 50ML SYRG IV PRN (07:45)
[2024-07-30] MEDS: SODIUM CHLORIDE 0.9% 1,000 ML IV SCH (07:57)
[2024-07-30 08:30] VITALS: PULSE 59; RESP 13; O2SAT 96
[2024-07-30] MEDS ORDERED: PATIENTS OWN MEDICATION (Amlodipine Besylate 10 MG) PO SCH (10:00)
[2024-07-30] MEDS: TAMSULOSIN HYDROCHLORIDE 0.4 MG CAP PO SCH (11:47)
[2024-07-30] MEDS: cefTRIAXone 1GM/50ML D5W 50 ML IV SCH (11:48)
[2024-07-30] MEDS: FINASTERIDE 5 MG TAB PO SCH (11:48)
[2024-07-30] MEDS: amLODIPine BESYLATE 5 MG TAB PO SCH (11:48)
--- NOTE | 2024-07-30 11:56 | ECG ---
[facility] Test Date: 2024-07-30 Test Time: 06:11:20 Pat Name: TEZ BARRIOS Department: ED Room: 0248 Gender: M [employer]or[employer] Operator: : [id number] Requested By: TAINA CARTER Order Number: [id number] Reading MD: Yonathan Liu Measurements Intervals [place] Rate: 76 P: 2 NM: 227 QRS: 80 QRSD: 141 T: 59 QT: 409 QTc: 460 Interpretive Statements Sinus rhythm Prolonged NM interval Right bundle branch block Electronically Signed On 07-30-2024 20:58:36 PDT by Yonathan Liu Please click the below link to view image of tracing.
[2024-07-30] MEDS: InsuLIN REG 1unit/0.01ml Soln (100units/ml) SC SCH (12:00)
[2024-07-30] MEDS: ACCU-CHEK COMFORT CURVE STRIP VI SCH (12:07)
[2024-07-30] MEDS: HYDROcodone-ACET 5/325MG TAB PO PRN (16:09)
[2024-07-30 16:58] VITALS: BP 128/54; PULSE 63; RESP 18; TEMP 97.4; O2SAT 92
[2024-07-30 20:00] VITALS: PULSE 78; RESP 18; O2SAT 97
[2024-07-30 21:00] VITALS: BP 144/56; PULSE 73; RESP 18; TEMP 97.2; O2SAT 95
[2024-07-30] MEDS: ATORVASTATIN 20 MG TAB PO SCH (22:00)
[2024-07-31] VITALS (14 sets, daily range): BP systolic 108–161; BP diastolic 51–76; PULSE 66–98; RESP 15–19; TEMP 97.8–100.1; O2SAT 62–99
[2024-07-31 06:28] LABS: Basophils # (auto) 0 10 ^3/uL (0-0.2); Basophils % (auto) 0.5 % (0.0-2.0); Hemoglobin 7.5 g/dL (13.5-17.5); Lymphocytes # (auto) 0.8 10 ^3/uL (0.4-5.4); Mean Corpuscular Volume 94.8 fL (80.0-100.0); Monocytes # (auto) 0.7 10 ^3/uL (0-1.3); Platelet Count (auto) 97 10^3/uL (140-450); Red Cell Distribution Width 14.3 % (11.8-14.3); White Blood Cell 6.6 10^3/uL (4.4-10.8)
[2024-07-31 06:32] LABS: Eosinophils # (auto) 0.3 10 ^3/uL (0-0.8); Eosinophils % (auto) 3.9 % (0.0-7.0); Hematocrit 21.8 % (41.0-53.0); Lymphocytes % (auto) 12.3 % (10.0-50.0); Mean Corpuscular Hemoglobin 32.7 pg (28.0-32.0); Mean Corpuscular Hgb Conc. 34.5 g/dL (32.0-36.0); Monocytes % (auto) 10.3 % (0.0-12.0); Neutrophils # (auto) 4.8 10 ^3/uL (1.6-8.6)
[2024-07-31 06:50] LABS: Alanine Aminotransferase 18 U/L (7-40); Albumin 3.4 g/dL (3.2-4.8); Alkaline Phosphatase 57 U/L (46-116); Anion Gap 11 (5-15); Aspartate Aminotransferase 16 U/L (13-40); BUN/Creatinine Ratio 19.5 (10.0-20.0); Carbon Dioxide 20 mmol/L (20-31); Potassium 3.8 mmol/L (3.5-5.1); Sodium 142 mmol/L (136-145)
[2024-07-31 06:51] LABS: Bilirubin, Total 0.8 mg/dL (0.2-1.0)
[2024-07-31 07:01] LABS: Blood Urea Nitrogen 26 mg/dL (9-23); Calcium 8.5 mg/dL (8.7-10.4); Chloride 111 mmol/L (98-107); Glucose 121 mg/dL (74-106); Total Protein 5.6 g/dL (5.7-8.2)
[2024-07-31] MEDS ORDERED: GLYCOPYRROLATE 0.2 MG/ML 1ML VIAL ONE (11:33)
[2024-07-31] MEDS ORDERED: MIDAZOLAM HCL 2MG/2ML 2ml VIAL (1mg/ml) ONE (11:33)
[2024-07-31] MEDS ORDERED: KETAMINE 50mg/ML 1ml syringe ONE (11:33)
[2024-07-31] MEDS ORDERED: ONDANSETRON HCL 4 MG/2 ML VIAL ONE (11:33)
[2024-07-31] MEDS ORDERED: MORPHINE SULF PF 5 MG/10 ML VIAL ONE (11:33)
[2024-07-31] MEDS ORDERED: PROPOFOL 10 MG/ML 20 ML IV ONE (11:33)
[2024-07-31] MEDS ORDERED: ePHEDrine SULFATE 50 MG/ML AMP ONE (11:33)
[2024-07-31] MEDS ORDERED: fentaNYL CITRATE 100 MCG/2 ML VL ONE (11:33)
--- NOTE | 2024-07-31 11:39 | DVHINCON2 ---
Date of service: Jul 31, 2024 Reason for Consultation Right hip fracture History of Present Illness 69 yo M sp mechanical fall at grocery store. Patient landed onto right leg-- immediate pain/swelling/inability to bear weight. No numbness or tingling. Denies any cp/sob/abd pain/nausea/vomiting. Hx of hypertension, hyperlipidemia, diabetes type 2, prostate surgery, BPH, left kidney cancer on chemo with left nephrectomy, and left hip ORIF Family History: FH: pancreatic cancer G8 FATHER Allergies: Coded Allergies: NO KNOWN ALLERGIES (Unverified , 01/06/18) Home Meds Active Scripts Metformin Hydrochloride (Metformin Hcl) 850 Mg Tab, 850 MG PO BID for 30 Days, #60 TAB 2 Refills Prov:GISELLE PALOMARES MD 04/23/24 Cefdinir (Cefdinir) 300 Mg Cap, 300 MG PO BID for 7 Days, #14 CAP Prov:GISELLE PALOMARES MD 04/23/24 Amlodipine Besylate (Amlodipine Besylate) 10 Mg Tab, 10 MG PO DAILY for 30 Days, #30 TAB 2 Refills Prov:GISELLE PALOMARES MD 04/23/24 Reported Medications Metoprolol Succinate (Metoprolol Succinate Er) 25 Mg Tab, 0.5 TAB PO DAILY 07/30/24 Lisinopril (Lisinopril) 2.5 Mg Tab, 1 TAB PO DAILY 07/30/24 Finasteride (Finasteride) 5 Mg Tab, 1 TAB PO DAILY 04/18/24 Tamsulosin Hcl (Tamsulosin Hcl) 0.4 Mg Cap, 1 CAP PO BID 04/18/24 Simvastatin (Simvastatin) 10 Mg Tab, 1 TAB PO 04/18/24 Current Medications Current Medications Medications (Trade) Dose Ordered Sig/Jessica Route PRN Reason Start Time Stop Time Status Last Admin Diagnostic Test (Pha) (Accu-Chek Comfort Curve T) 1 strip Q6HR 07/30/24 12:00 07/31/24 05:53 Insulin Human Regular (InsuLIN R) Q6HR SC 07/30/24 12:00 Atorvastatin Calcium (Lipitor) 10 mg HS PO 07/30/24 22:00 07/30/24 22:00 Review of Systems as per HPI Vital Signs Vital Signs Date Time Temp Pulse Resp B/P (MAP) Pulse Ox O2 Delivery O2 Flow Rate FiO2 07/31/24 09:00 98.1 69 17 131/57 (81) 94 98.1 07/31/24 08:00 Room Air* 0 21 Physical Exam NAD RLE: short/ext rotated +TA/GS/EHL/FHL foot wwp Labs/Diagnostic Data Labs Test 07/31/24 05:51 07/31/24 05:41 07/30/24 01:08 07/29/24 23:18 Range/Units POC Glucose 114 H 70-106 mg/dl White Blood Count 6.6 4.4-10.8 10^3/uL Red Blood Count 2.30 L 4.5-5.90 10^6/uL Hemoglobin 7.5 #L 13.5-17.5 g/dL Hematocrit 21.8 #L 41.0-53.0 % Mean Corpuscular Volume 94.8 80.0-100.0 fL Mean Corpuscular Hemoglobin 32.7 H 28.0-32.0 pg Mean Corpuscular Hemoglobin Concent 34.5 32.0-36.0 g/dL Red Cell Distribution Width 14.3 11.8-14.3 % Platelet Count 97 L 140-450 10^3/uL Mean Platelet Volume 7.8 6.9-10.8 fL Neutrophils (%) (Auto) 73.0 37.0-80.0 % Lymphocytes (%) (Auto) 12.3 10.0-50.0 % Monocytes (%) (Auto) 10.3 0.0-12.0 % Eosinophils (%) (Auto) 3.9 0.0-7.0 % Basophils (%) (Auto) 0.5 0.0-2.0 % Neutrophils # (Auto) 4.8 1.6-8.6 10 ^3/uL Lymphocytes # (Auto) 0.8 0.4-5.4 10 ^3/uL Monocytes # (Auto) 0.7 0-1.3 10 ^3/uL Eosinophils # (Auto) 0.3 0-0.8 10 ^3/uL Basophils # (Auto) 0 0-0.2 10 ^3/uL Nucleated Red Blood Cells 0.0 % Sodium Level 142 136-145 mmol/L Potassium Level 3.8 3.5-5.1 mmol/L Chloride Level 111 H 98-107 mmol/L Carbon Dioxide Level 20 20-31 mmol/L Anion Gap 11 5-15 Blood Urea Nitrogen 26 H 9-23 mg/dL Creatinine 1.33 H 0.700-1.30 mg/dL Glomerular Filtration Rate Calc 57 >90 mL/min BUN/Creatinine Ratio 19.5 10.0-20.0 Serum Glucose 121 H 74-106 mg/dL Calcium Level 8.5 L 8.7-10.4 mg/dL Total Bilirubin 0.8 0.2-1.0 mg/dL Aspartate Amino Transferase (AST) 16 13-40 U/L Alanine Aminotransferase (ALT) 18 7-40 U/L Alkaline Phosphatase 57 46-116 U/L Total Protein 5.6 L 5.7-8.2 g/dL Albumin 3.4 3.2-4.8 g/dL Urine Color Light-yellow Yellow Urine Clarity Clear Clear Urine pH 5.5 5.0-9.0 Urine Specific [place] 1.020 1.001-1.035 Urine Protein 2+ H Negative Urine Ketones 2+ H Negative Urine Blood 3+ H Negative /uL Urine Nitrite Negative Negative Urine Bilirubin Negative Negative Urine Urobilinogen Normal Negative mg/dL Urine Leukocyte Esterase 2+ Negative /uL Urine RBC 127 0 - 3 /hpf Urine Microscopic WBC 78 H 0-3 /HPF Urine Squamous Epithelial Cells Few <5 /hpf Urine Calcium Oxalate Crystals Few None Seen Urine Bacteria None seen None Seen /hpf Urine Mucus Few None Seen Urine Glucose Normal Normal mg/dL Troponin I High Sensitivity 12 </=54 ng/L Test 07/29/24 20:18 Range/Units Hemoglobin A1c 6.0 H <5.7 % A1C Lactic Acid Level 1.7 0.4-2.0 mmol/L B-Type Natriuretic Peptide 51.18 0-100 pg/mL Plan/Recommendation 69 yo M with comminuted right hip intertrochanteric fracture 1. I had a long and thorough discussion with patient regarding his condition. Risks benefits options and alternatives reviewed in depth. Risks include but not exclusive to bleeding, infection, nerve injury,hardware failure, nonunion, malunion, chronic pain, blood clots, cardiac and pulmonary complications, amputation and . Patient understands the risks and wishes to proceed with surgery. Patient understands the morbidity and mortality of hip fractures in the elderly. 2. Plan for open reduction internal fixation of right hip fracture 3. NPO/iVF Plan discussed with: Patient MONI,MARGARITA MD Jul 31, 2024 11:39
--- NOTE | 2024-07-31 12:05 | DVH ---
CHEST RADIOGRAPH Indication: pre-op Technique: Single frontal view of the chest was obtained COMPARISON: XY CHEST XRAY 1 VIEW on DOS: 05/13/24 FINDINGS: Lines and Tubes: Right chest port in satisfactory position. Lungs: Clear Pleura: No effusion. No pneumothorax. Cardiomediastinal contours: Unremarkable Bones: Unremarkable IMPRESSION: No acute disease.
--- NOTE | 2024-07-31 12:21 | DVHPN2 ---
Subjective The patient is seen and examined at bedside. Complain of pain on the left side. Reviewed: Care Plan, H&P, Labs, Medications, Previous Orders, Radiology Changes from previous H/P or p: No Changes Musculoskeletal: other (Right hip pain) Objective Vitals Vital Signs Date Time Temp Pulse Resp B/P (MAP) Pulse Ox O2 Delivery O2 Flow Rate FiO2 07/31/24 09:00 98.1 69 17 131/57 (81) 94 98.1 07/31/24 08:00 Room Air* 0 21 Intake/Output Intake and Output 07/31/24 07:00 Intake Total 770 ml Output Total 500 ml Balance 270 ml Intake Oral 0 ml IV Total 770 ml Output Urine Total 500 ml Stool Total 0 ml General Appearance: Alert, Oriented X3, Cooperative, mild distress HEENT: Atraumatic, PERRLA, EOMI, Mucous membr. moist/pink Neck: Supple Lungs: Clear to auscultation, Normal air movement Cardiovascular: Regular rate, Normal S1, Normal S2, No murmurs, Gallops, Rubs Abdomen: Normal bowel sounds, Soft, No tenderness Extremities: Other (Limited range of motion due to fracture of the hip.) Neuro: Cranial nerves 3-12 NL Psych/Mental Status: Mental status NL Medications Current Medications Medications Dose Ordered Sig/Jessica Route Start Time Stop Time Status Last Admin Dose Admin Sodium Chloride 1,000 ml @ 120 mls/hr Q8H20M IV 07/30/24 07:30 07/31/24 09:28 120 MLS/HR Acetaminophen/ Hydrocodone Bitart 1 tab Q4HP PRN PO 07/30/24 07:30 07/30/24 21:37 1 TAB Ondansetron HCl 4 mg Q4HP PRN IV 07/30/24 07:30 Acetaminophen 650 mg Q6HP PRN PO 07/30/24 07:30 Morphine Sulfate 2 mg Q4HPRN PRN IV 07/30/24 07:30 Ceftriaxone Sodium 50 ml @ 100 mls/hr DAILY@09 IV 07/30/24 09:00 07/31/24 09:29 100 MLS/HR Diagnostic Test (Pha) 1 strip Q6HR 07/30/24 12:00 07/31/24 05:53 1 STRIP Insulin Human Regular Q6HR SC 07/30/24 12:00 Dextrose 50 ml UD PRN IV 07/30/24 07:45 Finasteride 5 mg DAILY PO 07/30/24 10:00 07/30/24 11:48 5 MG Patient Own Medication 10 mg DAILY PO 07/30/24 10:00 UNV Atorvastatin Calcium 10 mg HS PO 07/30/24 22:00 07/30/24 22:00 10 MG Tamsulosin HCl 0.4 mg BID PO 07/30/24 10:00 07/30/24 11:47 0.4 MG Amlodipine Besylate 10 mg DAILY PO 07/30/24 10:00 07/30/24 11:48 10 MG Enoxaparin Sodium 40 mg DAILY SC 08/01/24 10:00 UNV Laboratory Results Laboratory Tests 07/31/24 05:41 Chemistry Test 07/31/24 05:41 Albumin 3.4 g/dL (3.2-4.8) Calcium Level 8.5 mg/dL (8.7-10.4) L Total Protein 5.6 g/dL (5.7-8.2) L Coagulation Test 07/31/24 11:50 Prothrombin Time Pending Prothrombin Time INR Pending LFT Test 07/31/24 05:41 Alanine Aminotransferase (ALT) 18 U/L (7-40) Alkaline Phosphatase 57 U/L (46-116) Aspartate Amino Transferase (AST) 16 U/L (13-40) Total Bilirubin 0.8 mg/dL (0.2-1.0) Urinalysis Test 07/30/24 01:08 Urine Color Light-yellow (Yellow) Urine Clarity Clear (Clear) Urine pH 5.5 (5.0-9.0) Urine Specific [place] 1.020 (1.001-1.035) Urine Protein 2+ (Negative) H Urine Ketones 2+ (Negative) H Urine Blood 3+ /uL (Negative) H Urine Nitrite Negative (Negative) Urine Bilirubin Negative (Negative) Urine Urobilinogen Normal mg/dL (Negative) Urine Leukocyte Esterase 2+ /uL (Negative) Urine RBC 127 /hpf (0 - 3) Urine Microscopic WBC 78 /HPF (0-3) H Urine Squamous Epithelial Cells Few /hpf (<5) Urine Calcium Oxalate Crystals Few (None Seen) Urine Bacteria None seen /hpf (None Seen) Urine Mucus Few (None Seen) Urine Glucose Normal mg/dL (Normal) Labs and/or images reviewed: Labs reviewed by me Assessment/Plan Assessment/Plan Right lower extremity pain status post fall Acute comminuted right intertrochanteric fracture UTI Hypertension Hyperlipidemia Diabetes type 2 Anemia Thrombocytopenia SHAMAR History of kidney cancer status post chemo History of left nephrectomy History of left hip IM 2018 History of prostate surgery Plan: Continuing current management. Continuing with IV pain medication and [place] for pain control. Continuing with IV antibiotic Rocephin. Continuing with sliding scale insulin. We will consulted orthopedic surgeon, Dr. Thakur. Plan discussed with: Patient My Orders Orders - GARO LOPEZ MD Procedure Category Date Status Time * Orthopedic Consult CONS 07/31/24 Transmitted 10:31 Date of Service: Jul 31, 2024 Billing Provider: GARO LOPEZ MD Common Visit Codes: [id number] INP/OBS CARE(HIGH) GARO LOPEZ MD Jul 31, 2024 12:21
[2024-07-31 12:28] LABS: INR 1.04 (0.9-1.15)
[2024-07-31] MEDS: BUPIVACAINE 0.25% INJ 50ML VIAL ONE (12:49)
[2024-07-31] MEDS: ACCU-CHEK COMFORT CURVE STRIP VI ONE (13:15)
[2024-07-31] MEDS ORDERED: ONDANSETRON HCL 4 MG/2 ML VIAL IV PRN (13:15)
[2024-07-31] MEDS ORDERED: NALOXONE HCL 0.4 MG/ML VIAL IV PRN (13:15)
[2024-07-31] MEDS ORDERED: DexAMETHasone SOD PHOS 10MG/1ML VIAL INJ IV PRN (13:15)
--- NOTE | 2024-07-31 13:43 | DVH ---
C-ARM FLUOROSCOPY: PROCEDURE: ORIF right hip FLUOROSCOPY TIME: 35 sec DAP: 7.89 mgy FINDINGS: Spot intraoperative C arm radiographs demonstrating ORIF right hip . IMPRESSION: Please refer to surgical report for detailed findings.
[2024-07-31] MEDS: ACETAMINOPHEN 325 MG TAB PO PRN (20:02)
[2024-08-01] VITALS (19 sets, daily range): BP systolic 100–145; BP diastolic 34–78; PULSE 66–81; RESP 16–19; TEMP 98–99.5; O2SAT 97–100
--- NOTE | 2024-08-01 08:50 | ECG ---
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
[2024-08-01] MEDS: ENOXAPARIN SOD 40 MG/0.4 ML SYRINGE SC SCH (10:00)
--- NOTE | 2024-08-01 11:37 | DVHPN2 ---
Subjective The patient is seen and examined at bedside. Still have pain in the hip area. Waiting for surgery. Reviewed: Care Plan, H&P, Labs, Medications, Previous Orders, Radiology Changes from previous H/P or p: No Changes Musculoskeletal: other (Right hip pain) Objective Vitals Vital Signs Date Time Temp Pulse Resp B/P (MAP) Pulse Ox O2 Delivery O2 Flow Rate FiO2 08/01/24 10:58 137/59 08/01/24 08:00 Nasal Cannula* 3 32 08/01/24 07:00 72 16 99 08/01/24 05:00 99.5 99.5 Intake/Output Intake and Output 08/01/24 07:00 Intake Total 1890 ml Output Total 445 ml Balance 1445 ml Intake Oral 840 ml IV Total 1050 ml Output Urine Total 445 ml General Appearance: Alert, Oriented X3, Cooperative, No acute distress HEENT: Atraumatic, PERRLA, EOMI, Mucous membr. moist/pink Neck: Supple Lungs: Clear to auscultation, Normal air movement Cardiovascular: Regular rate, Normal S1, Normal S2, No murmurs, Gallops, Rubs Abdomen: Normal bowel sounds, Soft, No tenderness, No hepatospenomegaly Extremities: Other (Limited range of motion on the left side due to hip pain) Neuro: Cranial nerves 3-12 NL Psych/Mental Status: Mental status NL Medications Current Medications Medications Dose Ordered Sig/Jessica Route Start Time Stop Time Status Last Admin Dose Admin Sodium Chloride 1,000 ml @ 120 mls/hr Q8H20M IV 07/30/24 07:30 08/01/24 09:30 120 MLS/HR Acetaminophen/ Hydrocodone Bitart 1 tab Q4HP PRN PO 07/30/24 07:30 Hold 07/30/24 21:37 1 TAB Acetaminophen 650 mg Q6HP PRN PO 07/30/24 07:30 07/31/24 20:02 650 MG Morphine Sulfate 2 mg Q4HPRN PRN IV 07/30/24 07:30 Ceftriaxone Sodium 50 ml @ 100 mls/hr DAILY@09 IV 07/30/24 09:00 07/31/24 09:29 100 MLS/HR Diagnostic Test (Pha) 1 strip Q6HR 07/30/24 12:00 08/01/24 04:56 1 STRIP Insulin Human Regular Q6HR SC 07/30/24 12:00 Dextrose 50 ml UD PRN IV 07/30/24 07:45 Finasteride 5 mg DAILY PO 07/30/24 10:00 08/01/24 10:56 5 MG Patient Own Medication 10 mg DAILY PO 07/30/24 10:00 UNV Atorvastatin Calcium 10 mg HS PO 07/30/24 22:00 07/31/24 22:40 10 MG Tamsulosin HCl 0.4 mg BID PO 07/30/24 10:00 08/01/24 10:56 0.4 MG Amlodipine Besylate 10 mg DAILY PO 07/30/24 10:00 08/01/24 10:58 10 MG Enoxaparin Sodium 40 mg DAILY SC 08/01/24 10:00 Diphenhydramine HCl 25 mg Q4HP PRN IV 07/31/24 13:15 Ondansetron HCl 4 mg Q4HP PRN IV 07/31/24 13:15 Ketorolac Tromethamine 15 mg Q6HP PRN IV 07/31/24 13:15 08/05/24 13:14 Laboratory Results Laboratory Tests 07/31/24 05:41 Coagulation Test 07/31/24 11:50 Prothrombin Time 11.0 sec (9.3-11.8) Prothrombin Time INR 1.04 (0.9-1.15) Urinalysis Test 07/30/24 01:08 Urine Color Light-yellow (Yellow) Urine Clarity Clear (Clear) Urine pH 5.5 (5.0-9.0) Urine Specific [place] 1.020 (1.001-1.035) Urine Protein 2+ (Negative) H Urine Ketones 2+ (Negative) H Urine Blood 3+ /uL (Negative) H Urine Nitrite Negative (Negative) Urine Bilirubin Negative (Negative) Urine Urobilinogen Normal mg/dL (Negative) Urine Leukocyte Esterase 2+ /uL (Negative) Urine RBC 127 /hpf (0 - 3) Urine Microscopic WBC 78 /HPF (0-3) H Urine Squamous Epithelial Cells Few /hpf (<5) Urine Calcium Oxalate Crystals Few (None Seen) Urine Bacteria None seen /hpf (None Seen) Urine Mucus Few (None Seen) Urine Glucose Normal mg/dL (Normal) Labs and/or images reviewed: Labs reviewed by me Assessment/Plan Assessment/Plan Right lower extremity pain status post fall Acute comminuted right intertrochanteric fracture UTI Hypertension Hyperlipidemia Diabetes type 2 Anemia Thrombocytopenia SHAMAR History of kidney cancer status post chemo History of left nephrectomy History of left hip IM 2018 History of prostate surgery Plan: Continuing current management. Continuing with IV pain medication and [place] for pain control. Continuing with IV antibiotic Rocephin. Continuing with sliding scale insulin. Waiting for hip surgery. This medical document was created using an electronic medical record system with [employer] direct computerized dictation system. Although this document has been carefully reviewed, there may still be some phonetic and typographical errors. These areas are purely typographical due to imperfections of the software programs, and do not reflect any compromise in the patient's medical care.. Plan discussed with: Patient My Orders Orders - GARO LOPEZ MD Procedure Category Date Status Time R Hip Complete Xray XY 07/31/24 Resulted 12:54 C Arm Fluoroscopy Up XY 07/31/24 Resulted To 60min 12:54 Date of Service: Aug 01, 2024 Billing Provider: GARO LOPEZ MD Common Visit Codes: [id number] INP/OBS CARE(HIGH) GARO LOPEZ MD Aug 01, 2024 11:37
[2024-08-01] MEDS: KETOROLAC TROMETH 30 MG/ML 1ML VIAL IV PRN (11:44)
[2024-08-02] VITALS (12 sets, daily range): BP systolic 111–134; BP diastolic 48–64; PULSE 65–77; RESP 14–19; TEMP 97.5–99.2; O2SAT 98–100
[2024-08-02 07:33] LABS: Basophils # (auto) 0 10 ^3/uL (0-0.2); Basophils % (auto) 0.2 % (0.0-2.0); Lymphocytes # (auto) 0.7 10 ^3/uL (0.4-5.4); Monocytes # (auto) 0.9 10 ^3/uL (0-1.3)
[2024-08-02 07:37] LABS: Eosinophils # (auto) 0.1 10 ^3/uL (0-0.8); Eosinophils % (auto) 1.9 % (0.0-7.0); Lymphocytes % (auto) 9.3 % (10.0-50.0); Mean Corpuscular Hemoglobin 32.1 pg (28.0-32.0); Mean Corpuscular Hgb Conc. 33.7 g/dL (32.0-36.0); Mean Corpuscular Volume 95.2 fL (80.0-100.0); Monocytes % (auto) 12.3 % (0.0-12.0); Neutrophils # (auto) 5.8 10 ^3/uL (1.6-8.6); Neutrophils % (auto) 76.3 % (37.0-80.0); Platelet Count (auto) 91 10^3/uL (140-450); Red Blood Cells 1.68 10^6/uL (4.5-5.90); Red Cell Distribution Width 14.6 % (11.8-14.3); White Blood Cell 7.7 10^3/uL (4.4-10.8)
[2024-08-02 07:40] LABS: Hemoglobin 5.4 g/dL (13.5-17.5)
[2024-08-02 08:22] LABS: Platelet Estimate Decreased
--- NOTE | 2024-08-02 11:38 | DVHPN2 ---
Subjective The patient is seen and examined at bedside. No complaint today. Reviewed: Care Plan, H&P, Labs, Medications, Previous Orders, Radiology Changes from previous H/P or p: No Changes Musculoskeletal: other (Right hip pain) Objective Vitals Vital Signs Date Time Temp Pulse Resp B/P (MAP) Pulse Ox O2 Delivery O2 Flow Rate FiO2 08/02/24 10:00 113/48 08/02/24 09:00 97.9 73 18 99 97.9 08/01/24 20:00 Nasal Cannula* 3 32 General Appearance: Alert, Oriented X3, Cooperative, No acute distress HEENT: Atraumatic, PERRLA, EOMI, Mucous membr. moist/pink Neck: Supple Lungs: Clear to auscultation, Normal air movement Cardiovascular: Regular rate, Normal S1, Normal S2, No murmurs, Gallops, Rubs Abdomen: Normal bowel sounds, Soft, No tenderness, No hepatospenomegaly Extremities: Other (Right lower extremity limited range of motion due to pain.) Neuro: Cranial nerves 3-12 NL Psych/Mental Status: Mental status NL Medications Current Medications Medications Dose Ordered Sig/Jessica Route Start Time Stop Time Status Last Admin Dose Admin Acetaminophen/ Hydrocodone Bitart 1 tab Q4HP PRN PO 07/30/24 07:30 Hold 07/30/24 21:37 1 TAB Acetaminophen 650 mg Q6HP PRN PO 07/30/24 07:30 08/01/24 22:30 650 MG Morphine Sulfate 2 mg Q4HPRN PRN IV 07/30/24 07:30 Ceftriaxone Sodium 50 ml @ 100 mls/hr DAILY@09 IV 07/30/24 09:00 08/02/24 08:24 100 MLS/HR Diagnostic Test (Pha) 1 strip Q6HR 07/30/24 12:00 08/02/24 05:42 1 STRIP Insulin Human Regular Q6HR SC 07/30/24 12:00 08/01/24 23:45 3 UNITS Dextrose 50 ml UD PRN IV 07/30/24 07:45 Finasteride 5 mg DAILY PO 07/30/24 10:00 08/02/24 10:03 5 MG Patient Own Medication 10 mg DAILY PO 07/30/24 10:00 UNV Atorvastatin Calcium 10 mg HS PO 07/30/24 22:00 08/01/24 22:04 10 MG Tamsulosin HCl 0.4 mg BID PO 07/30/24 10:00 08/02/24 10:03 0.4 MG Amlodipine Besylate 10 mg DAILY PO 07/30/24 10:00 08/01/24 10:58 10 MG Enoxaparin Sodium 40 mg DAILY SC 08/01/24 10:00 Diphenhydramine HCl 25 mg Q4HP PRN IV 07/31/24 13:15 Ondansetron HCl 4 mg Q4HP PRN IV 07/31/24 13:15 Ketorolac Tromethamine 15 mg Q6HP PRN IV 07/31/24 13:15 08/05/24 13:14 08/02/24 01:35 15 MG Laboratory Results Laboratory Tests 07/31/24 05:41 08/02/24 06:49 Urinalysis Test 07/30/24 01:08 Urine Color Light-yellow (Yellow) Urine Clarity Clear (Clear) Urine pH 5.5 (5.0-9.0) Urine Specific [place] 1.020 (1.001-1.035) Urine Protein 2+ (Negative) H Urine Ketones 2+ (Negative) H Urine Blood 3+ /uL (Negative) H Urine Nitrite Negative (Negative) Urine Bilirubin Negative (Negative) Urine Urobilinogen Normal mg/dL (Negative) Urine Leukocyte Esterase 2+ /uL (Negative) Urine RBC 127 /hpf (0 - 3) Urine Microscopic WBC 78 /HPF (0-3) H Urine Squamous Epithelial Cells Few /hpf (<5) Urine Calcium Oxalate Crystals Few (None Seen) Urine Bacteria None seen /hpf (None Seen) Urine Mucus Few (None Seen) Urine Glucose Normal mg/dL (Normal) Labs and/or images reviewed: Labs reviewed by me Assessment/Plan Assessment/Plan Right lower extremity pain status post fall Acute comminuted right intertrochanteric fracture UTI Hypertension Hyperlipidemia Diabetes type 2 Anemia Thrombocytopenia SHAMAR History of kidney cancer status post chemo History of left nephrectomy History of left hip IM 2018 History of prostate surgery Plan: Continuing current management. Continuing with IV pain medication and [place] for pain control. Continuing with IV antibiotic Rocephin. Continuing with sliding scale insulin. Status post right hip repair. We will continuing physical therapy per orthopedic surgeon recommendation. This medical document was created using an electronic medical record system with [employer] direct computerized dictation system. Although this document has been carefully reviewed, there may still be some phonetic and typographical errors. These areas are purely typographical due to imperfections of the software programs, and do not reflect any compromise in the patient's medical care. Plan discussed with: Patient My Orders Orders - GARO LOPEZ MD Procedure Category Date Status Time Type And Screen BBK 08/02/24 In Process 07:43 Obtain Consent For: ORDERS 08/02/24 Transmitted 10:28 Date of Service: Aug 02, 2024 Billing Provider: GARO LOPEZ MD Common Visit Codes: [id number] INP/OBS CARE(HIGH) GARO LOPEZ MD Aug 02, 2024 11:38
[2024-08-02] MEDS: MORPHINE SULFATE INJ 2 MG/ml SYRG IV PRN (18:38)
[2024-08-03 01:00] VITALS: BP 115/62; PULSE 68; RESP 17; TEMP 98.4; O2SAT 99
[2024-08-03 08:46] LABS: Basophils # (auto) 0 10 ^3/uL (0-0.2); Basophils % (auto) 0.2 % (0.0-2.0); Eosinophils # (auto) 0.2 10 ^3/uL (0-0.8); Monocytes # (auto) 0.6 10 ^3/uL (0-1.3); Platelet Count (auto) 112 10^3/uL (140-450)
[2024-08-03 08:49] LABS: Eosinophils % (auto) 2.2 % (0.0-7.0); Hematocrit 22.3 % (41.0-53.0); Hemoglobin 7.8 g/dL (13.5-17.5); Lymphocytes # (auto) 0.7 10 ^3/uL (0.4-5.4); Lymphocytes % (auto) 8.6 % (10.0-50.0); Mean Corpuscular Hemoglobin 32.5 pg (28.0-32.0); Mean Corpuscular Hgb Conc. 34.9 g/dL (32.0-36.0); Mean Corpuscular Volume 93.2 fL (80.0-100.0); Monocytes % (auto) 7.9 % (0.0-12.0); Neutrophils # (auto) 6.1 10 ^3/uL (1.6-8.6); Neutrophils % (auto) 81.1 % (37.0-80.0); Red Blood Cells 2.39 10^6/uL (4.5-5.90); White Blood Cell 7.6 10^3/uL (4.4-10.8)
[2024-08-03 08:55] LABS: Anion Gap 8 (5-15); Calcium 9.1 mg/dL (8.7-10.4); Carbon Dioxide 23 mmol/L (20-31); Sodium 140 mmol/L (136-145)
[2024-08-03 09:00] VITALS: BP 113/50; PULSE 69; RESP 19; TEMP 98.7; O2SAT 97
[2024-08-03 09:01] LABS: BUN/Creatinine Ratio 21.9 (10.0-20.0)
[2024-08-03 09:02] LABS: Blood Urea Nitrogen 40 mg/dL (9-23); Chloride 109 mmol/L (98-107); Glucose 163 mg/dL (74-106)
[2024-08-03 13:00] VITALS: BP 126/58; PULSE 68; RESP 19; TEMP 97.9; O2SAT 93
[2024-08-03 17:00] VITALS: BP 113/65; PULSE 74; RESP 18; TEMP 97.6; O2SAT 91
[2024-08-03 21:00] VITALS: BP 134/50; PULSE 76; RESP 16; TEMP 99.2; O2SAT 90
[2024-08-03] MEDS: diphenhdrAMINE HCL 50 MG/1 ML VL IV PRN (22:17)
[2024-08-04] VITALS (8 sets, daily range): BP systolic 99–146; BP diastolic 55–64; PULSE 60–78; RESP 16–20; TEMP 97.7–99.1; O2SAT 92–96
--- NOTE | 2024-08-04 14:40 | DVHPN2 ---
Reviewed: Care Plan, H&P, Labs, Medications, Previous Orders, Radiology Changes from previous H/P or p: No Changes General: Per HPI Musculoskeletal: other (Right hip pain) Objective Vitals Vital Signs Date Time Temp Pulse Resp B/P (MAP) Pulse Ox O2 Delivery O2 Flow Rate FiO2 08/04/24 12:48 98.9 70 16 146/60 (88) 93 98.9 08/04/24 08:00 Room Air* 0 21 Intake/Output Intake and Output 08/04/24 06:59 Intake Total 1950 ml Output Total 1350 ml Balance 600 ml Intake Oral 1900 ml IV Total 50 ml Output Urine Total 1350 ml # Bowel Movements 1 General Appearance: Alert, Oriented X3, Cooperative, No acute distress HEENT: Atraumatic, PERRLA, EOMI, Mucous membr. moist/pink Neck: Supple Lungs: Clear to auscultation, Normal air movement Cardiovascular: Regular rate, Normal S1, Normal S2, No murmurs, Gallops, Rubs Abdomen: Normal bowel sounds, Soft, No tenderness, No hepatospenomegaly Extremities: Other (Right lower extremity limited range of motion due to pain.) Neuro: Cranial nerves 3-12 NL Psych/Mental Status: Mental status NL Medications Current Medications Medications Dose Ordered Sig/Jessica Route Start Time Stop Time Status Last Admin Dose Admin Acetaminophen/ Hydrocodone Bitart 1 tab Q4HP PRN PO 07/30/24 07:30 Hold 07/30/24 21:37 1 TAB Acetaminophen 650 mg Q6HP PRN PO 07/30/24 07:30 08/03/24 09:45 650 MG Morphine Sulfate 2 mg Q4HPRN PRN IV 07/30/24 07:30 08/04/24 09:29 2 MG Ceftriaxone Sodium 50 ml @ 100 mls/hr DAILY@09 IV 07/30/24 09:00 08/04/24 09:30 100 MLS/HR Diagnostic Test (Pha) 1 strip Q6HR 07/30/24 12:00 08/04/24 12:47 1 STRIP Insulin Human Regular Q6HR SC 07/30/24 12:00 08/04/24 12:49 3 UNITS Dextrose 50 ml UD PRN IV 07/30/24 07:45 Finasteride 5 mg DAILY PO 07/30/24 10:00 08/04/24 09:26 5 MG Patient Own Medication 10 mg DAILY PO 07/30/24 10:00 UNV Atorvastatin Calcium 10 mg HS PO 07/30/24 22:00 08/03/24 22:15 10 MG Tamsulosin HCl 0.4 mg BID PO 07/30/24 10:00 08/04/24 09:23 0.4 MG Amlodipine Besylate 10 mg DAILY PO 07/30/24 10:00 08/04/24 09:25 10 MG Enoxaparin Sodium 40 mg DAILY SC 08/01/24 10:00 08/04/24 09:30 40 MG Diphenhydramine HCl 25 mg Q4HP PRN IV 07/31/24 13:15 08/03/24 22:17 25 MG Ondansetron HCl 4 mg Q4HP PRN IV 07/31/24 13:15 Ketorolac Tromethamine 15 mg Q6HP PRN IV 07/31/24 13:15 08/05/24 13:14 08/03/24 22:17 15 MG Laboratory Results Laboratory Tests 08/03/24 08:25 Urinalysis Test 07/30/24 01:08 Urine Color Light-yellow (Yellow) Urine Clarity Clear (Clear) Urine pH 5.5 (5.0-9.0) Urine Specific [place] 1.020 (1.001-1.035) Urine Protein 2+ (Negative) H Urine Ketones 2+ (Negative) H Urine Blood 3+ /uL (Negative) H Urine Nitrite Negative (Negative) Urine Bilirubin Negative (Negative) Urine Urobilinogen Normal mg/dL (Negative) Urine Leukocyte Esterase 2+ /uL (Negative) Urine RBC 127 /hpf (0 - 3) Urine Microscopic WBC 78 /HPF (0-3) H Urine Squamous Epithelial Cells Few /hpf (<5) Urine Calcium Oxalate Crystals Few (None Seen) Urine Bacteria None seen /hpf (None Seen) Urine Mucus Few (None Seen) Urine Glucose Normal mg/dL (Normal) Labs and/or images reviewed: Labs reviewed by me, Image(s) reviewed by me Assessment/Plan Assessment/Plan Right lower extremity pain status post fall Acute comminuted right intertrochanteric fracture UTI Hypertension Hyperlipidemia Diabetes type 2 Anemia Thrombocytopenia SHAMAR History of kidney cancer status post chemo History of left nephrectomy History of left hip IM 2018 History of prostate surgery 08/03/2024: pt to work with PT/OT possible d/c in 24-48 hours Plan discussed with: Patient My Orders Orders - UMESH MEZA DO Procedure Category Date Status Time Apply [facility] 08/03/24 In Process 17:00 Date of Service: Aug 03, 2024 Billing Provider: UMESH MEZA DO Common Visit Codes: [id number] INP/OBS CARE(HIGH) UMESH MEZA DO Aug 04, 2024 14:40
--- NOTE | 2024-08-04 14:48 | DVHPN2 ---
Reviewed: Care Plan, H&P, Labs, Medications, Previous Orders, Radiology Changes from previous H/P or p: No Changes General: Per HPI Musculoskeletal: other (Right hip pain) Objective Vitals Vital Signs Date Time Temp Pulse Resp B/P (MAP) Pulse Ox O2 Delivery O2 Flow Rate FiO2 08/04/24 12:48 98.9 70 16 146/60 (88) 93 98.9 08/04/24 08:00 Room Air* 0 21 Intake/Output Intake and Output 08/04/24 06:59 Intake Total 1950 ml Output Total 1350 ml Balance 600 ml Intake Oral 1900 ml IV Total 50 ml Output Urine Total 1350 ml # Bowel Movements 1 General Appearance: Alert, Oriented X3, Cooperative, No acute distress HEENT: Atraumatic, PERRLA, EOMI, Mucous membr. moist/pink Neck: Supple Lungs: Clear to auscultation, Normal air movement Cardiovascular: Regular rate, Normal S1, Normal S2, No murmurs, Gallops, Rubs Abdomen: Normal bowel sounds, Soft, No tenderness, No hepatospenomegaly Extremities: Other (Right lower extremity limited range of motion due to pain.) Neuro: Cranial nerves 3-12 NL Psych/Mental Status: Mental status NL Medications Current Medications Medications Dose Ordered Sig/Jessica Route Start Time Stop Time Status Last Admin Dose Admin Acetaminophen/ Hydrocodone Bitart 1 tab Q4HP PRN PO 07/30/24 07:30 Hold 07/30/24 21:37 1 TAB Acetaminophen 650 mg Q6HP PRN PO 07/30/24 07:30 08/03/24 09:45 650 MG Morphine Sulfate 2 mg Q4HPRN PRN IV 07/30/24 07:30 08/04/24 09:29 2 MG Ceftriaxone Sodium 50 ml @ 100 mls/hr DAILY@09 IV 07/30/24 09:00 08/04/24 09:30 100 MLS/HR Diagnostic Test (Pha) 1 strip Q6HR 07/30/24 12:00 08/04/24 12:47 1 STRIP Insulin Human Regular Q6HR SC 07/30/24 12:00 08/04/24 12:49 3 UNITS Dextrose 50 ml UD PRN IV 07/30/24 07:45 Finasteride 5 mg DAILY PO 07/30/24 10:00 08/04/24 09:26 5 MG Patient Own Medication 10 mg DAILY PO 07/30/24 10:00 UNV Atorvastatin Calcium 10 mg HS PO 07/30/24 22:00 08/03/24 22:15 10 MG Tamsulosin HCl 0.4 mg BID PO 07/30/24 10:00 08/04/24 09:23 0.4 MG Amlodipine Besylate 10 mg DAILY PO 07/30/24 10:00 08/04/24 09:25 10 MG Enoxaparin Sodium 40 mg DAILY SC 08/01/24 10:00 08/04/24 09:30 40 MG Diphenhydramine HCl 25 mg Q4HP PRN IV 07/31/24 13:15 08/03/24 22:17 25 MG Ondansetron HCl 4 mg Q4HP PRN IV 07/31/24 13:15 Ketorolac Tromethamine 15 mg Q6HP PRN IV 07/31/24 13:15 08/05/24 13:14 08/03/24 22:17 15 MG Laboratory Results Laboratory Tests 08/03/24 08:25 Urinalysis Test 07/30/24 01:08 Urine Color Light-yellow (Yellow) Urine Clarity Clear (Clear) Urine pH 5.5 (5.0-9.0) Urine Specific [address] 1.020 (1.001-1.035) Urine Protein 2+ (Negative) H Urine Ketones 2+ (Negative) H Urine Blood 3+ /uL (Negative) H Urine Nitrite Negative (Negative) Urine Bilirubin Negative (Negative) Urine Urobilinogen Normal mg/dL (Negative) Urine Leukocyte Esterase 2+ /uL (Negative) Urine RBC 127 /hpf (0 - 3) Urine Microscopic WBC 78 /HPF (0-3) H Urine Squamous Epithelial Cells Few /hpf (<5) Urine Calcium Oxalate Crystals Few (None Seen) Urine Bacteria None seen /hpf (None Seen) Urine Mucus Few (None Seen) Urine Glucose Normal mg/dL (Normal) Labs and/or images reviewed: Labs reviewed by me, Image(s) reviewed by me Assessment/Plan Assessment/Plan Right lower extremity pain status post fall Acute comminuted right intertrochanteric fracture UTI Hypertension Hyperlipidemia Diabetes type 2 Anemia Thrombocytopenia SHAMAR History of kidney cancer status post chemo History of left nephrectomy History of left hip IM 2018 History of prostate surgery 08/03/2024: pt to work with PT/OT possible d/c in 24-48 hours 08/04/2024: pt is improving. possible d/c in AM Plan discussed with: Patient My Orders Orders - UMESH MEZA DO Procedure Category Date Status Time Apply [facility] 08/03/24 In Process 17:00 Date of Service: Aug 04, 2024 Billing Provider: UMESH MEZA DO Common Visit Codes: [id number] INP/OBS CARE(HIGH) UMESH MEZA DO Aug 04, 2024 14:48
[2024-08-05] VITALS (8 sets, daily range): BP systolic 132–148; BP diastolic 52–69; PULSE 63–70; RESP 18–20; TEMP 97.9–98.7; O2SAT 91–96
[2024-08-06 05:00] VITALS: BP 132/60; PULSE 63; RESP 18; TEMP 98.4; O2SAT 93
[2024-08-06 09:00] VITALS: BP 145/62; PULSE 67; RESP 18; TEMP 98.2; O2SAT 97
[2024-08-06 13:04] VITALS: BP 144/54; PULSE 57; RESP 17; TEMP 98.8; O2SAT 96
--- NOTE | 2024-08-06 14:35 | DVHPN2 ---
Reviewed: Care Plan, H&P, Labs, Medications, Previous Orders, Radiology Changes from previous H/P or p: No Changes General: Per HPI Musculoskeletal: other (Right hip pain) Objective Vitals Vital Signs Date Time Temp Pulse Resp B/P (MAP) Pulse Ox O2 Delivery O2 Flow Rate FiO2 08/06/24 13:04 98.8 57 17 144/54 (84) 96 98.8 08/06/24 07:30 Room Air* 0 21 Intake/Output Intake and Output 08/06/24 07:00 Intake Total 890 ml Output Total 1450 ml Balance -560 ml Intake Oral 840 ml IV Total 50 ml Output Urine Total 1450 ml General Appearance: Alert, Oriented X3, Cooperative, No acute distress HEENT: Atraumatic, PERRLA, EOMI, Mucous membr. moist/pink Neck: Supple Lungs: Clear to auscultation, Normal air movement Cardiovascular: Regular rate, Normal S1, Normal S2, No murmurs, Gallops, Rubs Abdomen: Normal bowel sounds, Soft, No tenderness, No hepatospenomegaly Extremities: Other (Right lower extremity limited range of motion due to pain.) Neuro: Cranial nerves 3-12 NL Psych/Mental Status: Mental status NL Medications Current Medications Medications Dose Ordered Sig/Jessica Route Start Time Stop Time Status Last Admin Dose Admin Acetaminophen/ Hydrocodone Bitart 1 tab Q4HP PRN PO 07/30/24 07:30 08/06/24 14:27 1 TAB Acetaminophen 650 mg Q6HP PRN PO 07/30/24 07:30 08/03/24 09:45 650 MG Morphine Sulfate 2 mg Q4HPRN PRN IV 07/30/24 07:30 08/04/24 09:29 2 MG Ceftriaxone Sodium 50 ml @ 100 mls/hr DAILY@09 IV 07/30/24 09:00 08/06/24 08:57 100 MLS/HR Diagnostic Test (Pha) 1 strip Q6HR 07/30/24 12:00 08/06/24 11:33 1 STRIP Insulin Human Regular Q6HR SC 07/30/24 12:00 08/06/24 11:33 3 UNITS Dextrose 50 ml UD PRN IV 07/30/24 07:45 Finasteride 5 mg DAILY PO 07/30/24 10:00 08/06/24 08:55 5 MG Patient Own Medication 10 mg DAILY PO 07/30/24 10:00 UNV Atorvastatin Calcium 10 mg HS PO 07/30/24 22:00 08/05/24 21:34 10 MG Tamsulosin HCl 0.4 mg BID PO 07/30/24 10:00 08/06/24 08:57 0.4 MG Amlodipine Besylate 10 mg DAILY PO 07/30/24 10:00 08/06/24 08:56 10 MG Enoxaparin Sodium 40 mg DAILY SC 08/01/24 10:00 08/06/24 08:57 40 MG Diphenhydramine HCl 25 mg Q4HP PRN IV 07/31/24 13:15 08/03/24 22:17 25 MG Ondansetron HCl 4 mg Q4HP PRN IV 07/31/24 13:15 Laboratory Results Laboratory Tests 08/03/24 08:25 Urinalysis Test 07/30/24 01:08 Urine Color Light-yellow (Yellow) Urine Clarity Clear (Clear) Urine pH 5.5 (5.0-9.0) Urine Specific [place] 1.020 (1.001-1.035) Urine Protein 2+ (Negative) H Urine Ketones 2+ (Negative) H Urine Blood 3+ /uL (Negative) H Urine Nitrite Negative (Negative) Urine Bilirubin Negative (Negative) Urine Urobilinogen Normal mg/dL (Negative) Urine Leukocyte Esterase 2+ /uL (Negative) Urine RBC 127 /hpf (0 - 3) Urine Microscopic WBC 78 /HPF (0-3) H Urine Squamous Epithelial Cells Few /hpf (<5) Urine Calcium Oxalate Crystals Few (None Seen) Urine Bacteria None seen /hpf (None Seen) Urine Mucus Few (None Seen) Urine Glucose Normal mg/dL (Normal) Assessment/Plan Assessment/Plan Right lower extremity pain status post fall Acute comminuted right intertrochanteric fracture UTI Hypertension Hyperlipidemia Diabetes type 2 Anemia Thrombocytopenia SHAMAR History of kidney cancer status post chemo History of left nephrectomy History of left hip IM 2018 History of prostate surgery 08/03/2024: pt to work with PT/OT possible d/c in 24-48 hours 08/04/2024: pt is improving. possible d/c in AM 08/05/2024: pt wants to go SNF Plan discussed with: Patient Date of Service: Aug 05, 2024 Billing Provider: UMESH MEZA DO Common Visit Codes: [id number] INP/OBS CARE(HIGH) UMESH MEZA DO Aug 06, 2024 14:35
--- NOTE | 2024-08-06 14:38 | DVHDS2 ---
Discharge Summary Date of Admission Jul 30, 2024 at 07:22 Date of Discharge: Aug 06, 2024 Labs/Diagnostic Data: Laboratory Results Test 08/06/24 11:05 08/03/24 08:25 08/02/24 06:49 07/31/24 11:50 POC Glucose 179 mg/dl (70-106) White Blood Count 7.6 10^3/uL (4.4-10.8) Red Blood Count 2.39 10^6/uL (4.5-5.90) Hemoglobin 7.8 g/dL (13.5-17.5) Hematocrit 22.3 % (41.0-53.0) Mean Corpuscular Volume 93.2 fL (80.0-100.0) Mean Corpuscular Hemoglobin 32.5 pg (28.0-32.0) Mean Corpuscular Hemoglobin Concent 34.9 g/dL (32.0-36.0) Red Cell Distribution Width 15.0 % (11.8-14.3) Platelet Count 112 10^3/uL (140-450) Mean Platelet Volume 7.9 fL (6.9-10.8) Neutrophils (%) (Auto) 81.1 % (37.0-80.0) Lymphocytes (%) (Auto) 8.6 % (10.0-50.0) Monocytes (%) (Auto) 7.9 % (0.0-12.0) Eosinophils (%) (Auto) 2.2 % (0.0-7.0) Basophils (%) (Auto) 0.2 % (0.0-2.0) Neutrophils # (Auto) 6.1 10 ^3/uL (1.6-8.6) Lymphocytes # (Auto) 0.7 10 ^3/uL (0.4-5.4) Monocytes # (Auto) 0.6 10 ^3/uL (0-1.3) Eosinophils # (Auto) 0.2 10 ^3/uL (0-0.8) Basophils # (Auto) 0 10 ^3/uL (0-0.2) Nucleated Red Blood Cells 0.0 % Sodium Level 140 mmol/L (136-145) Potassium Level 4.0 mmol/L (3.5-5.1) Chloride Level 109 mmol/L (98-107) Carbon Dioxide Level 23 mmol/L (20-31) Anion Gap 8 (5-15) Blood Urea Nitrogen 40 mg/dL (9-23) Creatinine 1.83 mg/dL (0.700-1.30) Glomerular Filtration Rate Calc 39 mL/min (>90) BUN/Creatinine Ratio 21.9 (10.0-20.0) Serum Glucose 163 mg/dL (74-106) Calcium Level 9.1 mg/dL (8.7-10.4) Platelet Estimate Decreased Prothrombin Time 11.0 sec (9.3-11.8) Prothrombin Time INR 1.04 (0.9-1.15) Test 07/31/24 05:41 07/30/24 01:08 07/29/24 23:18 07/29/24 20:18 Total Bilirubin 0.8 mg/dL (0.2-1.0) Aspartate Amino Transferase (AST) 16 U/L (13-40) Alanine Aminotransferase (ALT) 18 U/L (7-40) Alkaline Phosphatase 57 U/L (46-116) Total Protein 5.6 g/dL (5.7-8.2) Albumin 3.4 g/dL (3.2-4.8) Urine Color Light-yellow (Yellow) Urine Clarity Clear (Clear) Urine pH 5.5 (5.0-9.0) Urine Specific [place] 1.020 (1.001-1.035) Urine Protein 2+ (Negative) Urine Ketones 2+ (Negative) Urine Blood 3+ /uL (Negative) Urine Nitrite Negative (Negative) Urine Bilirubin Negative (Negative) Urine Urobilinogen Normal mg/dL (Negative) Urine Leukocyte Esterase 2+ /uL (Negative) Urine RBC 127 /hpf (0 - 3) Urine Microscopic WBC 78 /HPF (0-3) Urine Squamous Epithelial Cells Few /hpf (<5) Urine Calcium Oxalate Crystals Few (None Seen) Urine Bacteria None seen /hpf (None Seen) Urine Mucus Few (None Seen) Urine Glucose Normal mg/dL (Normal) Troponin I High Sensitivity 12 ng/L (</=54) Hemoglobin A1c 6.0 % A1C (<5.7) Lactic Acid Level 1.7 mmol/L (0.4-2.0) B-Type Natriuretic Peptide 51.18 pg/mL (0-100) Other Laboratory Tests 08/03/24 08:25 Brief Hx & Hospital Course: Right lower extremity pain status post fall Acute comminuted right intertrochanteric fracture UTI Hypertension Hyperlipidemia Diabetes type 2 Anemia Thrombocytopenia SHAMAR History of kidney cancer status post chemo History of left nephrectomy History of left hip IM 2018 History of prostate surgery 08/03/2024: pt to work with PT/OT possible d/c in 24-48 hours 08/04/2024: pt is improving. possible d/c in AM 08/05/2024: pt wants to go SNF 08/06/2024: discharged to SNF Condition at Discharge: Good Final Diagnosis/Problems List see above Discharge Disposition: Shelter Facility Discharge Instruct/Medications Diet: Cardiac 2g Na,low cholest Activity: No Restrictions, As Tolerated Discharge Statement: "Patient was advised to return to the ER or call 911 if any headaches, dizziness, shortness of breath, chest pain, abdominal pain, bleeding, fevers, or worsening of medical condition. Patient was counseled about treatment plan, medications, possible side effects, patientverbalized understanding. All questions were answered to the best of my ability. This discharge took greater then 30 minutes in planning, reviewing documentation, counseling the patient, and discussing with other team members." ASSESSMENT ASSESSMENT Assessment Date of Service: Aug 06, 2024 Billing Provider: UMESH MEZA DO Common Visit Codes: [id number] DISCH DAY >30min UMESH MEZA DO Aug 06, 2024 14:38
[2024-08-06 17:00] VITALS: BP 101/65; PULSE 74; RESP 16; TEMP 98.3; O2SAT 96
[2024-08-06 21:00] VITALS: BP 141/60; PULSE 68; RESP 18; TEMP 98.2; O2SAT 96
[2024-08-07 01:00] VITALS: BP 134/57; PULSE 60; RESP 18; TEMP 98.5; O2SAT 99
[2024-08-07 05:00] VITALS: BP 144/58; PULSE 62; RESP 18; TEMP 97.9; O2SAT 95
[2024-08-07 09:00] VITALS: BP 142/61; PULSE 61; RESP 17; TEMP 98.3; O2SAT 98
[2024-08-07 13:00] VITALS: BP 128/53; PULSE 57; RESP 16; TEMP 98.2; O2SAT 96
[2024-08-07 17:00] VITALS: BP 147/62; PULSE 64; RESP 16; TEMP 98.4; O2SAT 94
[2024-08-07 21:00] VITALS: BP 122/60; PULSE 60; RESP 14; TEMP 98; O2SAT 96
[2024-08-08 00:58] VITALS: BP 116/53; PULSE 64; RESP 18; TEMP 98.7; O2SAT 95
[2024-08-08 05:00] VITALS: BP 144/62; PULSE 58; RESP 18; TEMP 97.7; O2SAT 96
[2024-08-08 09:16] VITALS: BP 138/55; PULSE 54; RESP 17; TEMP 98; O2SAT 99
[2024-08-08 13:00] VITALS: BP 123/53; PULSE 53; RESP 17; TEMP 97.9; O2SAT 96
[2024-08-08 17:00] VITALS: BP 130/57; PULSE 59; RESP 17; TEMP 98; O2SAT 97
[2024-08-08 21:00] VITALS: BP 122/62; PULSE 60; RESP 18; TEMP 97.6; O2SAT 97
[2024-08-09 01:00] VITALS: BP 117/63; PULSE 63; RESP 18; TEMP 98.6; O2SAT 95
[2024-08-09 05:00] VITALS: BP 124/64; PULSE 60; RESP 18; TEMP 97.9; O2SAT 95
[2024-08-09 09:00] VITALS: BP 135/54; PULSE 55; RESP 15; TEMP 98.1; O2SAT 95
--- NOTE | 2024-08-09 11:19 | DVHPN2 ---
Reviewed: Care Plan, H&P, Labs, Medications, Previous Orders, Radiology Changes from previous H/P or p: No Changes General: Per HPI Musculoskeletal: other (Right hip pain) Objective Vitals Vital Signs Date Time Temp Pulse Resp B/P (MAP) Pulse Ox O2 Delivery O2 Flow Rate FiO2 08/09/24 09:00 98.1 55 15 135/54 (81) 95 98.1 08/09/24 08:00 Room Air* 0 21 Intake/Output Intake and Output 08/09/24 07:00 Intake Total 1190 ml Output Total 1050 ml Balance 140 ml Intake Oral 1140 ml IV Total 50 ml Output Urine Total 1050 ml General Appearance: Alert, Oriented X3, Cooperative, No acute distress HEENT: Atraumatic, PERRLA, EOMI, Mucous membr. moist/pink Neck: Supple Lungs: Clear to auscultation, Normal air movement Cardiovascular: Regular rate, Normal S1, Normal S2, No murmurs, Gallops, Rubs Abdomen: Normal bowel sounds, Soft, No tenderness, No hepatospenomegaly Extremities: Other (Right lower extremity limited range of motion due to pain.) Neuro: Cranial nerves 3-12 NL Psych/Mental Status: Mental status NL Medications Current Medications Medications Dose Ordered Sig/Jessica Route Start Time Stop Time Status Last Admin Dose Admin Acetaminophen/ Hydrocodone Bitart 1 tab Q4HP PRN PO 07/30/24 07:30 08/09/24 08:19 1 TAB Acetaminophen 650 mg Q6HP PRN PO 07/30/24 07:30 08/03/24 09:45 650 MG Ceftriaxone Sodium 50 ml @ 100 mls/hr DAILY@09 IV 07/30/24 09:00 08/09/24 08:06 100 MLS/HR Diagnostic Test (Pha) 1 strip Q6HR 07/30/24 12:00 08/09/24 04:36 1 STRIP Insulin Human Regular Q6HR SC 07/30/24 12:00 08/09/24 04:36 2 UNITS Dextrose 50 ml UD PRN IV 07/30/24 07:45 Finasteride 5 mg DAILY PO 07/30/24 10:00 08/09/24 08:11 5 MG Patient Own Medication 10 mg DAILY PO 07/30/24 10:00 UNV Atorvastatin Calcium 10 mg HS PO 07/30/24 22:00 08/08/24 22:15 10 MG Tamsulosin HCl 0.4 mg BID PO 07/30/24 10:00 08/09/24 08:10 0.4 MG Amlodipine Besylate 10 mg DAILY PO 07/30/24 10:00 08/09/24 08:15 10 MG Enoxaparin Sodium 40 mg DAILY SC 08/01/24 10:00 08/09/24 08:12 40 MG Diphenhydramine HCl 25 mg Q4HP PRN IV 07/31/24 13:15 08/03/24 22:17 25 MG Ondansetron HCl 4 mg Q4HP PRN IV 07/31/24 13:15 Laboratory Results Laboratory Tests 08/03/24 08:25 Urinalysis Test 07/30/24 01:08 Urine Color Light-yellow (Yellow) Urine Clarity Clear (Clear) Urine pH 5.5 (5.0-9.0) Urine Specific [place] 1.020 (1.001-1.035) Urine Protein 2+ (Negative) H Urine Ketones 2+ (Negative) H Urine Blood 3+ /uL (Negative) H Urine Nitrite Negative (Negative) Urine Bilirubin Negative (Negative) Urine Urobilinogen Normal mg/dL (Negative) Urine Leukocyte Esterase 2+ /uL (Negative) Urine RBC 127 /hpf (0 - 3) Urine Microscopic WBC 78 /HPF (0-3) H Urine Squamous Epithelial Cells Few /hpf (<5) Urine Calcium Oxalate Crystals Few (None Seen) Urine Bacteria None seen /hpf (None Seen) Urine Mucus Few (None Seen) Urine Glucose Normal mg/dL (Normal) Assessment/Plan Assessment/Plan Right lower extremity pain status post fall Acute comminuted right intertrochanteric fracture UTI Hypertension Hyperlipidemia Diabetes type 2 Anemia Thrombocytopenia SHAMAR History of kidney cancer status post chemo History of left nephrectomy History of left hip IM 2018 History of prostate surgery 08/03/2024: pt to work with PT/OT possible d/c in 24-48 hours 08/04/2024: pt is improving. possible d/c in AM 08/05/2024: pt wants to go SNF 08/07/2024: pt now changes his mind to be discharged to home with HH Plan discussed with: Patient Date of Service: Aug 07, 2024 Billing Provider: UMESH MEZA DO Common Visit Codes: [id number] INP/OBS CARE(HIGH) UMESH MEZA DO Aug 09, 2024 11:19
--- NOTE | 2024-08-09 11:20 | DVHPN2 ---
Reviewed: Care Plan, H&P, Labs, Medications, Previous Orders, Radiology Changes from previous H/P or p: No Changes General: Per HPI Musculoskeletal: other (Right hip pain) Objective Vitals Vital Signs Date Time Temp Pulse Resp B/P (MAP) Pulse Ox O2 Delivery O2 Flow Rate FiO2 08/09/24 09:00 98.1 55 15 135/54 (81) 95 98.1 08/09/24 08:00 Room Air* 0 21 Intake/Output Intake and Output 08/09/24 07:00 Intake Total 1190 ml Output Total 1050 ml Balance 140 ml Intake Oral 1140 ml IV Total 50 ml Output Urine Total 1050 ml General Appearance: Alert, Oriented X3, Cooperative, No acute distress HEENT: Atraumatic, PERRLA, EOMI, Mucous membr. moist/pink Neck: Supple Lungs: Clear to auscultation, Normal air movement Cardiovascular: Regular rate, Normal S1, Normal S2, No murmurs, Gallops, Rubs Abdomen: Normal bowel sounds, Soft, No tenderness, No hepatospenomegaly Extremities: Other (Right lower extremity limited range of motion due to pain.) Neuro: Cranial nerves 3-12 NL Psych/Mental Status: Mental status NL Medications Current Medications Medications Dose Ordered Sig/Jessica Route Start Time Stop Time Status Last Admin Dose Admin Acetaminophen/ Hydrocodone Bitart 1 tab Q4HP PRN PO 07/30/24 07:30 08/09/24 08:19 1 TAB Acetaminophen 650 mg Q6HP PRN PO 07/30/24 07:30 08/03/24 09:45 650 MG Ceftriaxone Sodium 50 ml @ 100 mls/hr DAILY@09 IV 07/30/24 09:00 08/09/24 08:06 100 MLS/HR Diagnostic Test (Pha) 1 strip Q6HR 07/30/24 12:00 08/09/24 04:36 1 STRIP Insulin Human Regular Q6HR SC 07/30/24 12:00 08/09/24 04:36 2 UNITS Dextrose 50 ml UD PRN IV 07/30/24 07:45 Finasteride 5 mg DAILY PO 07/30/24 10:00 08/09/24 08:11 5 MG Patient Own Medication 10 mg DAILY PO 07/30/24 10:00 UNV Atorvastatin Calcium 10 mg HS PO 07/30/24 22:00 08/08/24 22:15 10 MG Tamsulosin HCl 0.4 mg BID PO 07/30/24 10:00 08/09/24 08:10 0.4 MG Amlodipine Besylate 10 mg DAILY PO 07/30/24 10:00 08/09/24 08:15 10 MG Enoxaparin Sodium 40 mg DAILY SC 08/01/24 10:00 08/09/24 08:12 40 MG Diphenhydramine HCl 25 mg Q4HP PRN IV 07/31/24 13:15 08/03/24 22:17 25 MG Ondansetron HCl 4 mg Q4HP PRN IV 07/31/24 13:15 Laboratory Results Laboratory Tests 08/03/24 08:25 Urinalysis Test 07/30/24 01:08 Urine Color Light-yellow (Yellow) Urine Clarity Clear (Clear) Urine pH 5.5 (5.0-9.0) Urine Specific [place] 1.020 (1.001-1.035) Urine Protein 2+ (Negative) H Urine Ketones 2+ (Negative) H Urine Blood 3+ /uL (Negative) H Urine Nitrite Negative (Negative) Urine Bilirubin Negative (Negative) Urine Urobilinogen Normal mg/dL (Negative) Urine Leukocyte Esterase 2+ /uL (Negative) Urine RBC 127 /hpf (0 - 3) Urine Microscopic WBC 78 /HPF (0-3) H Urine Squamous Epithelial Cells Few /hpf (<5) Urine Calcium Oxalate Crystals Few (None Seen) Urine Bacteria None seen /hpf (None Seen) Urine Mucus Few (None Seen) Urine Glucose Normal mg/dL (Normal) Labs and/or images reviewed: Labs reviewed by me, Image(s) reviewed by me Assessment/Plan Assessment/Plan Right lower extremity pain status post fall Acute comminuted right intertrochanteric fracture UTI Hypertension Hyperlipidemia Diabetes type 2 Anemia Thrombocytopenia SHAMAR History of kidney cancer status post chemo History of left nephrectomy History of left hip IM 2018 History of prostate surgery 08/03/2024: pt to work with PT/OT possible d/c in 24-48 hours 08/04/2024: pt is improving. possible d/c in AM 08/05/2024: pt wants to go SNF 08/07/2024: pt now changes his mind to be discharged to home with 08/08/2024: pt now declines discharge but still refused to go to SNF Plan discussed with: Other (case management) Date of Service: Aug 08, 2024 Billing Provider: UMESH MEZA DO Common Visit Codes: [id number] INP/OBS CARE(HIGH) UMESH MEZA DO Aug 09, 2024 11:20
--- NOTE | 2024-08-09 11:21 | DVHPN2 ---
Reviewed: Care Plan, H&P, Labs, Medications, Previous Orders, Radiology Changes from previous H/P or p: No Changes General: Per HPI Musculoskeletal: other (Right hip pain) Objective Vitals Vital Signs Date Time Temp Pulse Resp B/P (MAP) Pulse Ox O2 Delivery O2 Flow Rate FiO2 08/09/24 09:00 98.1 55 15 135/54 (81) 95 98.1 08/09/24 08:00 Room Air* 0 21 Intake/Output Intake and Output 08/09/24 07:00 Intake Total 1190 ml Output Total 1050 ml Balance 140 ml Intake Oral 1140 ml IV Total 50 ml Output Urine Total 1050 ml General Appearance: Alert, Oriented X3, Cooperative, No acute distress HEENT: Atraumatic, PERRLA, EOMI, Mucous membr. moist/pink Neck: Supple Lungs: Clear to auscultation, Normal air movement Cardiovascular: Regular rate, Normal S1, Normal S2, No murmurs, Gallops, Rubs Abdomen: Normal bowel sounds, Soft, No tenderness, No hepatospenomegaly Extremities: Other (Right lower extremity limited range of motion due to pain.) Neuro: Cranial nerves 3-12 NL Psych/Mental Status: Mental status NL Medications Current Medications Medications Dose Ordered Sig/Jessica Route Start Time Stop Time Status Last Admin Dose Admin Acetaminophen/ Hydrocodone Bitart 1 tab Q4HP PRN PO 07/30/24 07:30 08/09/24 08:19 1 TAB Acetaminophen 650 mg Q6HP PRN PO 07/30/24 07:30 08/03/24 09:45 650 MG Ceftriaxone Sodium 50 ml @ 100 mls/hr DAILY@09 IV 07/30/24 09:00 08/09/24 08:06 100 MLS/HR Diagnostic Test (Pha) 1 strip Q6HR 07/30/24 12:00 08/09/24 04:36 1 STRIP Insulin Human Regular Q6HR SC 07/30/24 12:00 08/09/24 04:36 2 UNITS Dextrose 50 ml UD PRN IV 07/30/24 07:45 Finasteride 5 mg DAILY PO 07/30/24 10:00 08/09/24 08:11 5 MG Patient Own Medication 10 mg DAILY PO 07/30/24 10:00 UNV Atorvastatin Calcium 10 mg HS PO 07/30/24 22:00 08/08/24 22:15 10 MG Tamsulosin HCl 0.4 mg BID PO 07/30/24 10:00 08/09/24 08:10 0.4 MG Amlodipine Besylate 10 mg DAILY PO 07/30/24 10:00 08/09/24 08:15 10 MG Enoxaparin Sodium 40 mg DAILY SC 08/01/24 10:00 08/09/24 08:12 40 MG Diphenhydramine HCl 25 mg Q4HP PRN IV 07/31/24 13:15 08/03/24 22:17 25 MG Ondansetron HCl 4 mg Q4HP PRN IV 07/31/24 13:15 Laboratory Results Laboratory Tests 08/03/24 08:25 Urinalysis Test 07/30/24 01:08 Urine Color Light-yellow (Yellow) Urine Clarity Clear (Clear) Urine pH 5.5 (5.0-9.0) Urine Specific [place] 1.020 (1.001-1.035) Urine Protein 2+ (Negative) H Urine Ketones 2+ (Negative) H Urine Blood 3+ /uL (Negative) H Urine Nitrite Negative (Negative) Urine Bilirubin Negative (Negative) Urine Urobilinogen Normal mg/dL (Negative) Urine Leukocyte Esterase 2+ /uL (Negative) Urine RBC 127 /hpf (0 - 3) Urine Microscopic WBC 78 /HPF (0-3) H Urine Squamous Epithelial Cells Few /hpf (<5) Urine Calcium Oxalate Crystals Few (None Seen) Urine Bacteria None seen /hpf (None Seen) Urine Mucus Few (None Seen) Urine Glucose Normal mg/dL (Normal) Labs and/or images reviewed: Labs reviewed by me, Image(s) reviewed by me Assessment/Plan Assessment/Plan Right lower extremity pain status post fall Acute comminuted right intertrochanteric fracture UTI Hypertension Hyperlipidemia Diabetes type 2 Anemia Thrombocytopenia SHAMAR History of kidney cancer status post chemo History of left nephrectomy History of left hip IM 2018 History of prostate surgery 08/03/2024: pt to work with PT/OT possible d/c in 24-48 hours 08/04/2024: pt is improving. possible d/c in AM 08/05/2024: pt wants to go [facility] 08/07/2024: pt now changes his mind to be discharged to home with 08/08/2024: pt now declines discharge but still refused to go to SNF 07/2024: I have filled out form stating that pt is deemed discharged and must chose either SNF or home with HH discussed with case management Plan discussed with: Other (case management) Date of Service: Aug 09, 2024 Billing Provider: UMESH MEZA DO Common Visit Codes: [id number] INP/OBS CARE(HIGH) UMESH MEZA DO Aug 09, 2024 11:21
[2024-08-09 13:00] VITALS: BP 133/86; PULSE 62; RESP 18; TEMP 97.7; O2SAT 98
[2024-08-09 17:00] VITALS: BP 144/56; PULSE 59; RESP 18; TEMP 97.8; O2SAT 96
[2024-08-09 19:45] VITALS: BP 121/77; PULSE 60; RESP 17; TEMP 98.3; O2SAT 98
[2024-08-10 05:29] VITALS: BP 122/56; PULSE 56; RESP 18; TEMP 97.9; O2SAT 96
[2024-08-10 09:06] VITALS: BP 121/52; PULSE 55; RESP 18; TEMP 97.8; O2SAT 97
[2024-08-10 11:31] VITALS: BP 125/69; PULSE 63; RESP 16; TEMP 36.6; O2SAT 97
[2024-08-10] MEDS ORDERED: HYDR-4902 PO (11:38)
--- NOTE | 2024-08-10 12:18 | DVHOP2 ---
Operative Report - 2 Report Details Date: 07/31/24 Preop Diagnosis: Right hip intertrochanteric fracture Postop Diagnosis: Right hip fracture Surgeon: David Penn MD Anesthesiologist: Balbir CORRALES Anesthesia: Regional Consent: The patient was informed of the risks and benefits of the procedure. These include but are not limited to complications of anesthesia, postoperative infection, incomplete relief of symptoms, recurrence of symptoms, damage to b lood vessels, nerves and tendons, deep venous thrombosis, pulmonary embolism and possible need for repeat surgery in the future. Estimated Blood Loss: 100 cc Indications for Surgery: 69 yo M with displaced right hip fracture; patient taken emergently to OR to stabilize the hip fracture Name of Procedure Performed Open reduction internal fixation of right hip fracture, intraop fluoro Procedure Details Procedure Details: FINDINGS: IT fracture, reduced on the fracture table. DESCRIPTION OF PROCEDURE: In the preoperative holding area, the consent was reviewed and the appropriate extremity was verified by the patient and marked with my initials. The patient was then transferred to the operating theatre. Patient was placed on a fracture table. Appropriate anesthetia was induced. All bony prominences were well padded. A time out was performed verifying the side and site of surgery according to standard protocol. Preoperative antibiotics were given. The extremity was then prepped and draped in the usual sterile fashion. Using c-arm, the fracture was reduced using the fracture table and a combination of maneuvers including traction, internal rotation, and flexion. An incision was made over the greater trochanter confirming correct position with c-arm. A guide wire was drilled into the tip of the greater trochanter, centered A to P. We used the starting reamer to gain entry to the femoral canal. A short nail was then placed. A guide pin was then drilled in the center of the femoral head confirmed using fluoroscopy. We measured the s crew lengths. Using a cannulated drill, we drilled the lateral cortex. The screws were then introduced. Once positioned, we once again confirmed that the screws were with the femoral head. Cerament injected into fracture site Attention was turned distally. We used the targeting device to drill through the nail and the femur. This was measured using the device, and the screw was placed with good purchase. Final xrays were taken showing the hardware in perfect position. The wound was copiously irrigated. No fractures were seen on the rest of the femur. The fascia was closed with #1 Vicryl, the skin closed #2-0 Vicryl, and samanta. A dry sterile dressing was placed on the patient. The patient was transferred to the recovery room in stable condition. Condition Fair Disposition Still a Patient DAVID PENN MD Aug 10, 2024 12:18
--- NOTE | 2024-08-10 12:47 | DVHPN2 ---
Subjective Patient was denies any symptoms Reviewed: Care Plan, H&P, Labs, Medications, Previous Orders, Radiology Changes from previous H/P or p: No Changes General: Per HPI Musculoskeletal: other (Right hip pain) Objective Vitals Vital Signs Date Time Temp Pulse Resp B/P (MAP) Pulse Ox O2 Delivery O2 Flow Rate FiO2 08/10/24 11:31 36.6 63 16 97 08/10/24 09:06 121/52 (75) 08/10/24 08:00 Room Air* 0 21 Intake/Output Intake and Output 08/10/24 07:00 Intake Total 1742 ml Output Total 1850 ml Balance -108 ml Intake Oral 1692 ml IV Total 50 ml Output Urine Total 1850 ml # Bowel Movements 1 General Appearance: Alert, Oriented X3, Cooperative, No acute distress HEENT: Atraumatic, PERRLA, EOMI, Mucous membr. moist/pink Neck: Supple Lungs: Clear to auscultation, Normal air movement Cardiovascular: Regular rate, Normal S1, Normal S2, No murmurs, Gallops, Rubs Abdomen: Normal bowel sounds, Soft, No tenderness, No hepatospenomegaly Extremities: Other (Right lower extremity limited range of motion due to pain.) Neuro: Cranial nerves 3-12 NL Skin: Dry, Intact Psych/Mental Status: Mental status NL Medications Current Medications Medications Dose Ordered Sig/Jessica Route Start Time Stop Time Status Last Admin Dose Admin Acetaminophen/ Hydrocodone Bitart 1 tab Q4HP PRN PO 07/30/24 07:30 08/10/24 09:16 1 TAB Acetaminophen 650 mg Q6HP PRN PO 07/30/24 07:30 08/03/24 09:45 650 MG Diagnostic Test (Pha) 1 strip Q6HR 07/30/24 12:00 08/10/24 04:34 1 STRIP Insulin Human Regular Q6HR SC 07/30/24 12:00 08/10/24 04:40 3 UNITS Dextrose 50 ml UD PRN IV 07/30/24 07:45 Finasteride 5 mg DAILY PO 07/30/24 10:00 08/10/24 09:15 5 MG Patient Own Medication 10 mg DAILY PO 07/30/24 10:00 UNV Atorvastatin Calcium 10 mg HS PO 07/30/24 22:00 08/09/24 19:59 10 MG Tamsulosin HCl 0.4 mg BID PO 07/30/24 10:00 08/10/24 09:29 0.4 MG Amlodipine Besylate 10 mg DAILY PO 07/30/24 10:00 08/09/24 08:15 10 MG Enoxaparin Sodium 40 mg DAILY SC 08/01/24 10:00 08/10/24 09:16 40 MG Diphenhydramine HCl 25 mg Q4HP PRN IV 07/31/24 13:15 08/03/24 22:17 25 MG Ondansetron HCl 4 mg Q4HP PRN IV 07/31/24 13:15 Laboratory Results Laboratory Tests 08/03/24 08:25 Urinalysis Test 07/30/24 01:08 Urine Color Light-yellow (Yellow) Urine Clarity Clear (Clear) Urine pH 5.5 (5.0-9.0) Urine Specific [place] 1.020 (1.001-1.035) Urine Protein 2+ (Negative) H Urine Ketones 2+ (Negative) H Urine Blood 3+ /uL (Negative) H Urine Nitrite Negative (Negative) Urine Bilirubin Negative (Negative) Urine Urobilinogen Normal mg/dL (Negative) Urine Leukocyte Esterase 2+ /uL (Negative) Urine RBC 127 /hpf (0 - 3) Urine Microscopic WBC 78 /HPF (0-3) H Urine Squamous Epithelial Cells Few /hpf (<5) Urine Calcium Oxalate Crystals Few (None Seen) Urine Bacteria None seen /hpf (None Seen) Urine Mucus Few (None Seen) Urine Glucose Normal mg/dL (Normal) Labs and/or images reviewed: Labs reviewed by me, Image(s) reviewed by me Assessment/Plan Assessment/Plan Impression: -right intertrochanteric fracture, status post ORIF -chronic kidney disease stage IIIB with history of nephrectomy -postoperative anemia -Right lower extremity pain status post fall -Acute comminuted right intertrochanteric fracture -UTI -Hypertension -Hyperlipidemia -Diabetes type 2 -Anemia -Thrombocytopenia -SHAMAR -History of kidney cancer status post chemo -History of left nephrectomy -History of left hip IM 2018 -History of prostate surgery Plan: -patient was will be discharged home today with home health services, physical therapy as well as that patient was establishing a personal home health nurse that we will be worsening his care 24 hours a day. -discharge medication: [place] 5/325 q.6 hours as needed for [id number] pain -follow up with Orthopedic surgery in 1-2 weeks -follow up with PCP in one week Total time spent with patient discussing and formulating plan of care: 35 minutes. This medical document was created using an electronic medical record system with [employer] dictation system. Although this document has been carefully reviewed, there may still be some phonetic and typographical errors. These areas are purely typographical due to imperfections of the software programs, and do not reflect any compromise in the patient's medical care. Plan discussed with: Patient, Other (RN) My Orders Orders - DEMARIO HARDWICK NP Procedure Category Date Status Time D/C Godwin JORDYN 08/10/24 In Process 11:37 Discharge DISCHARGE 08/10/24 Transmitted 11:37 Date of Service: Aug 10, 2024 Billing Provider: DEMARIO HARDWICK NP Common Visit Codes: [id number] DISCH DAY >30min DEMARIO HARDWICK NP Aug 10, 2024 12:47
[2024-08-10 13:00] VITALS: BP 133/57; PULSE 59; RESP 18; TEMP 97.6; O2SAT 97
[2024-08-10 17:34] VITALS: BP 139/58; PULSE 60; RESP 18; TEMP 97.7; O2SAT 99
[2024-08-10 21:00] VITALS: BP 161/65; PULSE 58; RESP 18; TEMP 98.7; O2SAT 97
[2024-08-11 01:00] VITALS: BP 131/56; PULSE 62; RESP 18; TEMP 97.6; O2SAT 94
[2024-08-11 05:00] VITALS: BP 108/60; PULSE 97; RESP 18; TEMP 97.6; O2SAT 96
[2024-08-11 09:10] VITALS: BP 133/52; PULSE 53; RESP 19; TEMP 98; O2SAT 98
--- NOTE | 2024-08-11 11:30 | DVHPN2 ---
Subjective Patient was denies any symptoms Reviewed: Care Plan, H&P, Labs, Medications, Previous Orders, Radiology Changes from previous H/P or p: No Changes General: Per HPI Musculoskeletal: other (Right hip pain) Objective Vitals Vital Signs Date Time Temp Pulse Resp B/P (MAP) Pulse Ox O2 Delivery O2 Flow Rate FiO2 08/11/24 09:10 98.0 53 19 133/52 (79) 98 98.0 08/11/24 08:00 Room Air* 0 21 Intake/Output Intake and Output 08/11/24 07:00 Intake Total 1025 ml Output Total 625 ml Balance 400 ml Intake Oral 1025 ml Output Urine Total 625 ml # Bowel Movements 2 General Appearance: Alert, Oriented X3, Cooperative, No acute distress HEENT: Atraumatic, PERRLA, EOMI, Mucous membr. moist/pink Neck: Supple Lungs: Clear to auscultation, Normal air movement Cardiovascular: Regular rate, Normal S1, Normal S2, No murmurs, Gallops, Rubs Abdomen: Normal bowel sounds, Soft, No tenderness, No hepatospenomegaly Extremities: Other (Right lower extremity limited range of motion due to pain.) Neuro: Cranial nerves 3-12 NL Skin: Dry, Intact Psych/Mental Status: Mental status NL, Mood NL Medications Current Medications Medications Dose Ordered Sig/Jessica Route Start Time Stop Time Status Last Admin Dose Admin Acetaminophen/ Hydrocodone Bitart 1 tab Q4HP PRN PO 07/30/24 07:30 08/11/24 09:07 1 TAB Acetaminophen 650 mg Q6HP PRN PO 07/30/24 07:30 08/03/24 09:45 650 MG Diagnostic Test (Pha) 1 strip Q6HR 07/30/24 12:00 08/10/24 21:23 1 STRIP Insulin Human Regular Q6HR SC 07/30/24 12:00 08/10/24 21:23 2 UNITS Dextrose 50 ml UD PRN IV 07/30/24 07:45 Finasteride 5 mg DAILY PO 07/30/24 10:00 08/11/24 08:48 5 MG Patient Own Medication 10 mg DAILY PO 07/30/24 10:00 UNV Atorvastatin Calcium 10 mg HS PO 07/30/24 22:00 08/10/24 21:40 10 MG Tamsulosin HCl 0.4 mg BID PO 07/30/24 10:00 08/11/24 08:48 0.4 MG Amlodipine Besylate 10 mg DAILY PO 07/30/24 10:00 08/11/24 08:50 10 MG Enoxaparin Sodium 40 mg DAILY SC 08/01/24 10:00 08/11/24 08:48 40 MG Diphenhydramine HCl 25 mg Q4HP PRN IV 07/31/24 13:15 08/03/24 22:17 25 MG Ondansetron HCl 4 mg Q4HP PRN IV 07/31/24 13:15 Laboratory Results Laboratory Tests 08/03/24 08:25 Urinalysis Test 07/30/24 01:08 Urine Color Light-yellow (Yellow) Urine Clarity Clear (Clear) Urine pH 5.5 (5.0-9.0) Urine Specific [place] 1.020 (1.001-1.035) Urine Protein 2+ (Negative) H Urine Ketones 2+ (Negative) H Urine Blood 3+ /uL (Negative) H Urine Nitrite Negative (Negative) Urine Bilirubin Negative (Negative) Urine Urobilinogen Normal mg/dL (Negative) Urine Leukocyte Esterase 2+ /uL (Negative) Urine RBC 127 /hpf (0 - 3) Urine Microscopic WBC 78 /HPF (0-3) H Urine Squamous Epithelial Cells Few /hpf (<5) Urine Calcium Oxalate Crystals Few (None Seen) Urine Bacteria None seen /hpf (None Seen) Urine Mucus Few (None Seen) Urine Glucose Normal mg/dL (Normal) Labs and/or images reviewed: Labs reviewed by me, Image(s) reviewed by me Assessment/Plan Assessment/Plan Impression: -right intertrochanteric fracture, status post ORIF -chronic kidney disease stage IIIB with history of nephrectomy -postoperative anemia -Right lower extremity pain status post fall -Acute comminuted right intertrochanteric fracture -UTI -Hypertension -Hyperlipidemia -Diabetes type 2 -Anemia -Thrombocytopenia -SHAMAR -History of kidney cancer status post chemo -History of left nephrectomy -History of left hip IM 2018 -History of prostate surgery Plan: -events: Patient was found to be severely debilitated with respect to his ambulation. Patient was max assist x2 people. Patient was deemed unsuitable to be transferred home with home PT. Patient will now be discharged to alf facility today. -discharge medication: [place] 5/325 q.6 hours as needed for [id number] pain -follow up with Orthopedic surgery in 1-2 weeks -follow up with PCP in one week Total time spent with patient discussing and formulating plan of care: 35 minutes. This medical document was created using an electronic medical record system with [employer] dictation system. Although this document has been carefully reviewed, there may still be some phonetic and typographical errors. These areas are purely typographical due to imperfections of the software programs, and do not reflect any compromise in the patient's medical care. Plan discussed with: Patient, Other (RN) My Orders Orders - DEMARIO HARDWICK NP Procedure Category Date Status Time D/C Godwin JORDYN 08/10/24 In Process 11:37 Discharge DISCHARGE 08/10/24 Transmitted 11:37 * Investigation Lieutenant CONS 08/10/24 Transmitted Consult Bladder Scan ORDERS 08/10/24 Transmitted 15:30 Discharge DISCHARGE 08/10/24 Transmitted 18:11 Cleanse Wound With JORDYN 08/10/24 In Process Wound Clean 11:10 Date of Service: Aug 11, 2024 Billing Provider: DEMARIO HARDWICK NP Common Visit Codes: [id number] INP/OBS CARE(HIGH) DEMARIO HARDWICK NP Aug 11, 2024 11:30
== END 2024-08-11 15:23 | DRG 480 ==
LOC: ER 19:53 → EDBD 19:53 → OVERFLOW 07-30 07:22 → EAST 07-30 15:36 → TELE-EAST 07-31 14:07 → EAST 08-01 15:08
PROVIDERS: ADMIT Nurse Practitioner Acute Care; ATTEND Nurse Practitioner Acute Care
PROC: 0QS604Z Reposition Right Upper Femur with Internal Fixation Device, Open Approach (ICD-10-PCS; principal; 2024-07-31 11:55)
PROC: 30233N1 Transfusion of Nonautologous Red Blood Cells into Peripheral Vein, Percutaneous Approach (ICD-10-PCS; 2024-08-02)
DX: S72.144A Nondisplaced intertrochanteric fracture of right femur, initial encounter for closed fracture (principal); N17.0 Acute kidney failure with tubular necrosis; N39.0 Urinary tract infection, site not specified; D64.89 Other specified anemias; E78.5 Hyperlipidemia, unspecified; D69.6 Thrombocytopenia, unspecified; N18.32 Chronic kidney disease, stage 3b; I12.9 Hypertensive chronic kidney disease with stage 1 through stage 4 chronic kidney disease, or unspecified chronic kidney disease; E11.22 Type 2 diabetes mellitus with diabetic chronic kidney disease; N40.1 Benign prostatic hyperplasia with lower urinary tract symptoms; W01.0XXA Fall on same level from slipping, tripping and stumbling without subsequent striking against object, initial encounter; Y92.512 Supermarket, store or market as the place of occurrence of the external cause; Z80.0 Family history of malignant neoplasm of digestive organs; Y93.89 Activity, other specified; Y99.8 Other external cause status; Z90.5 Acquired absence of kidney; Z79.84 Long term (current) use of oral hypoglycemic drugs; Z79.899 Other long term (current) drug therapy; Z85.528 Personal history of other malignant neoplasm of kidney
CPT/HCPCS: 36415; 71045; 73502; 74176; 76000; 80048; 80053; 81001; 82962; 83036; 83605; 83880; 84484; 85025; 85610; 86850; 86900; 86901; 86920; 93005; 97110; 97116; 97163; 97530; C1713; G0378; J1815; J1885; J2250; J2405; J2704; J3490

== ENCOUNTER 2024-10-13 16:04 | Inpatient (IN) | payer MEDICARE, OTHER ==
[~2024-10-13] VITALS: Ht 175.3 cm; Wt 79.5 kg
[~2024-10-13 16:04] MED LIST changes: -CEFD300C2 PO; +HYDR-4902 PO; +LISI2.5T47 PO; +METO25TA93 PO
--- NOTE | 2024-10-13 16:29 | ED.PDOC ---
HPI (NEURO) HPI Comments 67 y/o M, CORAL, presents to the ED for CC of weakness. EMS reports, patient is coming from a hotel where he c/o weakness x2hrs. Patient relays, associated dark colored emesis since, commencement of symptoms. In route to the ED, patient was given a 400mL bolus and 4mg of Zofran; endorses symptoms improving. EMS relays, associated hypotension with a blood pressure of 80/40mmHg. Patient denies dizziness, headache, diarrhea, hematemesis, or melena. No other symptoms or modifying factors present at this time. Patient does report having a fall August 02 causing a right hip fracture. States he had surgery for right hip one month ago. States he had recent CT scans done showing calcifications around the fracture site, he states ortho pediatric was optimistic. Time Seen by MD: 16:15 Reviewed Notes: Nurses Notes, Chip Mixer Notes, Medications, Allergies Information Source: Patient, Emergency Med Personnel Mode of Arrival: EMS Severity: Moderate Dizziness/Weakness Severity: Does not affect activitie Headache Severity: None Timing: Hours Duration: Since onset Prehospital treatment: IVF, Other (Zofran) Weakness Location: Generalized Onset: At rest Circumstances: Spontaneous Symptoms: Weakness Before: Normal During: Awake After: Normal Mentation History of: None Modifying factors: Nothing Associated Signs and Symptoms: Nausea, Vomiting Past Medical History PAST MEDICAL HISTORY: Denies Surgical History: Denies all surgeries Family History Family History: Unknown Social History Smoker: Non-Smoker Alcohol: Denies ETOH Use Drugs: Denies Drug Use Lives In: Home Constitutional: reports: weakness; denies: chills, diaphoresis, fatigue, fever, malaise, sweats, others EENTM: denies: blurred vision, double vision, ear bleeding, ear discharge, ear drainage, ear pain, ear ringing, eye pain, eye redness, hearing loss, mouth pain, mouth swelling, nasal discharge, nose bleeding, nose congestion, nose pain, photophobia, tearing, throat pain, throat swelling, voice changes, others Respiratory: denies: cough, hemoptysis, orthopnea, SOB at rest, shortness of breath, SOB with excertion, stridor, wheezing, others Cardiovascular: denies: chest pain, dizzy spells, diaphoresis, Dyspnea on exertion, edema, irregular heart beat, left arm pain, lightheadedness, palpitations, PND, syncope, others Gastrointestinal: reports: nausea, vomiting; denies: abdomen distended, abdominal pain, blood streaked bowels, constipated, diarrhea, dysphagia, difficulty swallowing, hematemesis, melena, poor appetite, poor fluid intake, rectal bleeding, rectal pain, others Genitourinary: denies: burning, dysuria, flank pain, frequency, hematuria, incontinence, penile discharge, penile sore, pain, testicle pain, testicle swelling, urgency, others Neurological: denies: dizziness, fainting, headache, left sided numbness, left sided weakness, numbness, paresthesia, pre-existing deficit, right sided numbness, right sided weakness, seizure, speech problems, tingling, tremors, weakness, others Musculoskeletal: denies: back pain, gout, joint pain, joint swelling, muscle pain, muscle stiffness, neck pain, others Integumetry: denies: bruises, change in color, change in hair/nails, dryness, laceration, lesions, lumps, rash, wounds, others Allergic/Immunocompromised: denies: Difficulty Healing, Frequent Infections, Hives, Itching, others Hematologic/Lymphatic: denies: anemia, blood clots, easy bleeding, easy bruising, swollen glands, others Endocrine: denies: excessive hunger, excessive sweating, excessive thirst, excessive urination, flushing, intolerance to cold, intolerance to heat, unexplained weight gain, unexplained weight loss, others Psychiatric: denies: anxiety, bipolar disorder, depression, hopeless, panic disorder, schizophrenia, sleepless, suicidal, others All Other Systems: Reviewed and Negative Physical Exam General Appearance: No Apparent Distress, Normal HEENT: Normal ENT Inspection, Pharynx Normal Neck: Full Range of Motion, Non-Tender, Normal, Normal Inspection Respiratory: Chest Non-Tender, Lungs Clear, No Accessory Muscle Use, No Respiratory Distress, Normal Breath Sounds Cardiovascular: No Edema, No Murmur, No Gallop, Normal Peripheral Pulses, Regular Rate/Rhythm Breast Exam: Deferred Gastrointestinal: No Organomegaly, Non Tender, No Pulsatile Mass, Normal Bowel Sounds, Soft Genitalia: Deferred Pelvic: Deferred Rectal: Deferred Extremities: No calf tenderness, Normal capillary refill, Normal inspection, Normal range of motion, Non-tender, No pedal edema Musculoskeletal : Apperance: Normal Neurologic: Alert, 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 Was a procedure done?: No Differential Diagnosis (SZ) General Weakness: Dehydration, Hypoglycemia, Hypotension X-Ray, Labs, Meds, VS Vital Signs Date Time Temp Pulse Resp B/P (MAP) Pulse Ox O2 Delivery O2 Flow Rate FiO2 10/13/24 16:50 97.9 69 11 117/53 (74) 100 97.9 10/13/24 16:50 Room Air* 0 21 10/13/24 16:15 98.9 70 20 102/58 (73) 98 98.9 Lab Test 10/13/24 18:50 10/13/24 17:15 10/13/24 16:37 10/13/24 16:24 Range/Units Lactic Acid Level Pending 4.9 *H 0.4-2.0 mmol/L Total Bilirubin Pending Direct Bilirubin Pending Aspartate Amino Transferase (AST) Pending Alanine Aminotransferase (ALT) Pending Alkaline Phosphatase Pending Troponin I High Sensitivity Pending 20 22 </=54 ng/L Total Protein Pending Albumin Pending Lipase Pending Urine Color Light-red Yellow Urine Clarity Ex.turbid Clear Urine pH 5.5 5.0-9.0 Urine Specific [place] 1.019 1.001-1.035 Urine Protein 1+ H Negative Urine Ketones Trace Negative Urine Blood 3+ H Negative /uL Urine Nitrite Negative Negative Urine Bilirubin Negative Negative Urine Urobilinogen Normal Negative mg/dL Urine Leukocyte Esterase 1+ Negative /uL Urine RBC 5157 0 - 3 /hpf Urine Microscopic WBC 2 0-3 /HPF Urine Squamous Epithelial Cells Few <5 /hpf Urine Bacteria None seen None Seen /hpf Urine Mucus Few None Seen Urine Glucose Normal Normal mg/dL White Blood Count 4.9 4.4-10.8 10^3/uL Red Blood Count 3.72 L 4.5-5.90 10^6/uL Hemoglobin 11.4 L 13.5-17.5 g/dL Hematocrit 35.2 L 41.0-53.0 % Mean Corpuscular Volume 94.6 80.0-100.0 fL Mean Corpuscular Hemoglobin 30.5 28.0-32.0 pg Mean Corpuscular Hemoglobin Concent 32.2 32.0-36.0 g/dL Red Cell Distribution Width 16.6 H 11.8-14.3 % Platelet Count 86 L 140-450 10^3/uL Mean Platelet Volume 8.7 6.9-10.8 fL Neutrophils (%) (Auto) 70.0 37.0-80.0 % Lymphocytes (%) (Auto) 22.9 10.0-50.0 % Monocytes (%) (Auto) 6.1 0.0-12.0 % Eosinophils (%) (Auto) 0.3 0.0-7.0 % Basophils (%) (Auto) 0.7 0.0-2.0 % Neutrophils # (Auto) 3.4 1.6-8.6 10 ^3/uL Lymphocytes # (Auto) 1.1 0.4-5.4 10 ^3/uL Monocytes # (Auto) 0.3 0-1.3 10 ^3/uL Eosinophils # (Auto) 0 0-0.8 10 ^3/uL Basophils # (Auto) 0 0-0.2 10 ^3/uL Nucleated Red Blood Cells 0.0 % Sodium Level 142 136-145 mmol/L Potassium Level 5.2 H 3.5-5.1 mmol/L Chloride Level 105 98-107 mmol/L Carbon Dioxide Level 12 L 20-31 mmol/L Anion Gap 25 H 5-15 Blood Urea Nitrogen 65 H 9-23 mg/dL Creatinine 6.64 H 0.700-1.30 mg/dL Glomerular Filtration Rate Calc 8 >90 mL/min BUN/Creatinine Ratio 9.8 L 10.0-20.0 Serum Glucose 94 74-106 mg/dL Calcium Level 8.6 L 8.7-10.4 mg/dL B-Type Natriuretic Peptide 127.31 0-100 pg/mL Current Medications Medications (Trade) Dose Ordered Sig/Jessica Route Start Time Stop Time Status Last Admin Vancomycin HCl 250 ml @ 200 mls/hr ONCE ONCE IV 10/13/24 18:00 10/13/24 19:14 DC 10/13/24 18:40 Sodium Chloride 2,100 ml @ 2,100 mls/hr ONCE ONCE IV 10/13/24 18:00 10/13/24 18:59 DC 10/13/24 18:00 Ceftriaxone Sodium 50 ml @ 100 mls/hr ONCE ONCE IV 10/13/24 18:00 10/13/24 18:29 DC 10/13/24 18:40 X-Ray, Labs, Meds, VS Comment IMPRESSION: Acute/subacute appearing fracture of the right femoral head and neck with intertrochanteric extension. Right femur intramedullary hilda and intertrochanteric screw. Marked gallbladder distention and cholelithiasis. Recommend HIDA scan to exclude cholecystitis. 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 Gastric distention. Atherosclerotic disease. Fecal like contents within the small bowel which can be seen with ileus, hypomotility, bowel obstruction. Laboratory: Labs reviewed and interpreted by this provider. Patient has prior medical visits reviewed. Med reconciliation performed Vital signs reviewed Time of 1ST Reevaluation: 16:45 Reevaluation 1ST: Unchanged Patient Education/Counseling: Diagnosis, Treatment Family Education/Counseling: No Family Present Departure 1 Departure Time of Disposition: 19:15 Impression: Primary Impression: Cholelithiasis Qualified Codes: K80.20 - Calculus of gallbladder without cholecystitis without obstruction Additional Impressions: Small bowel obstruction Closed right hip fracture Qualified Codes: S72.001A - Fracture of unspecified part of neck of right femur, initial encounter for closed fracture Elevated lactic acid level Disposition: ADMITTED INPATIENT Condition: Guarded Discharged With: Self Critical Care Note Critical Care Time?: Yes (30 min-critical care time only) Critical care comment: Due to a high probability of clinically significant, life threatening deterioration, the patient required my highest level of preparedness to intervene emergently and I personally spent this critical care time directly and personally managing the patient. This critical care time included obtaining a history; examining the patient; pulse oximetry; ordering and review of studies; arranging urgent treatment with development of a management plan; evaluation of patient's response to treatment; frequent reassessment; and, discussions with ot her providers. This critical care time was performed to assess and manage the high probability of imminent, life-threatening deterioration that could result in multi-organ failure. It was exclusive of separately billable procedures and treating other patients and teaching time. Stability Stability form required: No Heart Score Heart Score: Heart Score Response (Comments) Value History N/A 0 EKG N/A 0 Age N/A 0 Risk Factors N/A 0 Troponin N/A 0 Total 0 I personally scribed for ASH SHEPPARD ([email or web address]) on 10/13/24 at 16:29. Electronically submitted by Haylee Quijano ([email or web address]). ASH SHEPPARD Oct 13, 2024 16:29
[2024-10-13 16:53] LABS: Basophils # (auto) 0 10 ^3/uL (0-0.2); Basophils % (auto) 0.7 % (0.0-2.0); Eosinophils # (auto) 0 10 ^3/uL (0-0.8); Eosinophils % (auto) 0.3 % (0.0-7.0); Hematocrit 35.2 % (41.0-53.0); Hemoglobin 11.4 g/dL (13.5-17.5); Lymphocytes # (auto) 1.1 10 ^3/uL (0.4-5.4); Lymphocytes % (auto) 22.9 % (10.0-50.0); Mean Corpuscular Hemoglobin 30.5 pg (28.0-32.0); Mean Corpuscular Hgb Conc. 32.2 g/dL (32.0-36.0); Mean Corpuscular Volume 94.6 fL (80.0-100.0); Monocytes # (auto) 0.3 10 ^3/uL (0-1.3); Monocytes % (auto) 6.1 % (0.0-12.0); Neutrophils # (auto) 3.4 10 ^3/uL (1.6-8.6); Platelet Count (auto) 86 10^3/uL (140-450); Red Blood Cells 3.72 10^6/uL (4.5-5.90); Red Cell Distribution Width 16.6 % (11.8-14.3); White Blood Cell 4.9 10^3/uL (4.4-10.8)
[2024-10-13 17:06] LABS: Chloride 105 mmol/L (98-107); Sodium 142 mmol/L (136-145)
[2024-10-13 17:07] LABS: Anion Gap 25 (5-15)
[2024-10-13 17:08] LABS: Calcium 8.6 mg/dL (8.7-10.4); Carbon Dioxide 12 mmol/L (20-31); Potassium 5.2 mmol/L (3.5-5.1)
[2024-10-13 17:12] LABS: BUN/Creatinine Ratio 9.8 (10.0-20.0); Glucose 94 mg/dL (74-106)
[2024-10-13 17:13] LABS: Blood Urea Nitrogen 65 mg/dL (9-23)
[2024-10-13 17:50] LABS: Lactic Acid w/Reflex 4.9 mmol/L (0.4-2.0)
[2024-10-13] MEDS: SODIUM CHLORIDE 0.9% 2,100 ML IV ONE (18:00)
--- NOTE | 2024-10-13 18:21 | DVH ---
Indication: abd pain Technique: CT axial images of the abdomen and pelvis are obtained without contrast. Coronal and sagit ze reformats were obtained. Radiation Dose Information: CTDI volume is 7.72 mGy. Dose-length product is 387.59 mGy*cm Comparison: None FINDINGS: There is limited interpretation of the abdomen and pelvis without administration of intravenous contr ast. Lung bases demonstrate right lower lobe atelectasis. Adrenal glands, spleen, pancreas unremarkable in shape. Distended gallbladder with extensive choleli thiasis. Liver unremarkable in shape. The right kidney demonstrates no hydronephrosis or nephrolithiasis. 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 Stomach is moderately distended. The small bowel loops are demonstrating fecal like contents. Moderate volume stool in the colon. No secondary signs for appendicitis. Abdominal aortic atherosclerotic disease. Bladder is partially distended. Presacral edema. No inguina l lymphadenopathy. Bilateral femur intramedullary rods, intertrochanteric screws. Acute/subacute appearing fracture of t he right femoral head /neck with intertrochanteric extension. Moderate bilateral sacroiliac degenerat sancho joint disease. Moderate thoracolumbar degenerative disc disease and facet hypertrophic changes. IMPRESSION: Acute/subacute appearing fracture of the right femoral head and neck with intertrochanteric extension . Right femur intramedullary hilda and intertrochanteric screw. Marked gallbladder distention and cholelithiasis. Recommend HIDA scan to exclude cholecystitis. 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 Gastric distention. Atherosclerotic disease. Fecal like contents within the small bowel which can be seen with ileus, hypomotility, bowel obstruct ion.
[2024-10-13] MEDS: cefTRIAXone 1GM/50ML D5W 50 ML IV ONE (18:40)
[2024-10-13] MEDS: VANCOMYCIN 1.25GM/250ML 250 ML IV ONE (18:40)
[2024-10-13 19:45] VITALS: PULSE 93
[2024-10-13 19:55] LABS: Albumin 3.9 g/dL (3.2-4.8); Alkaline Phosphatase 78 U/L (46-116); Aspartate Aminotransferase 13 U/L (<34); Total Protein 6.5 g/dL (5.7-8.2)
[2024-10-13] MEDS: metroNIDAZOLE 500MG/100ML 100 ML IV ONE (19:55)
[2024-10-13 19:56] LABS: Bilirubin, Direct 0.3 mg/dL (<0.3); Bilirubin, Total 0.6 mg/dL (0.2-1.0)
[2024-10-13 19:58] LABS: Alanine Aminotransferase < 9 U/L (7-40)
[2024-10-13 20:09] LABS: Lipase 24 U/L (12-53)
[2024-10-13] MEDS: SODIUM CHLORIDE 0.9% 1,000 ML IV ONE (23:23)
[2024-10-13] MEDS ORDERED: DEXTROSE (50%) 50ML SYRG IV PRN (23:30)
--- NOTE | 2024-10-13 23:33 | DVHHPRES ---
History of Present Illness Resident Creating Document: GLADIS VALERA RESIDENT History of Present Illness 69 year old male patient with PMH of diabetes mellitus type 2, PH, nephrectomy, right hip fracture presented with complaints of cough for last three days associated with sputum and one episode of hemoptysis was loss of appetite, diarrhea for last three days. Patient also mentioned associated weakness. Not able to make urine for last two days. Patient mentioned that he had nephrectomy four years ago for cancer in the kidney and had chemotherapy after that. Also mentioned he had TURP months ago. He is also mentioning of feeling cold in the toes and nausea He is denying any abdominal pain, pain, shortness of breath, addition, headache, dizziness. Patient currently lives alone and has healthcare worker coming in home Past medical history Diabetes mellitus type 2, BPH, renal cell carcinoma right hip fracture Past surgical history TURP Nephrectomy Medication history Tamsulosin Finasteride Metformin Simvastatin Social history Smoking 5-1/2 years ago Quit alcohol 5-1/2 years ago Lives alone Younger brother is POA Allergic History No known allergies Review of Systems Review of Systems As described in the HPI Allergies: Coded Allergies: NO KNOWN ALLERGIES (Unverified , 10/13/24) Exam Vital Signs Vital Signs Date Time Temp Pulse Resp B/P (MAP) Pulse Ox O2 Delivery O2 Flow Rate FiO2 10/13/24 20:00 79 10/13/24 19:00 11 113/53 (73) 100 10/13/24 16:50 97.9 97.9 10/13/24 16:50 Room Air* 0 21 Exam Examination General Appearance: Alert, Oriented X3, Cooperative, No acute distress HEENT: EOMI Respiratory: Clear to auscultation, Normal air movement Cardiovascular: Regular rate, Normal S1, Normal S2 Abdominal: Normal bowel sounds Extremities: No cyanosis, No edema, Normal pulses, No tenderness/swelling Skin: No rashes, No breakdown Neuro: Normal gait, Normal speech, Strength at 5/5 X4 ext, Normal tone, Sensation intact, Cranial nerves 3-12 NL, Reflexes 2+ Psych/Mental Status: Mental status NL, Mood NL Labs/Xrays Labs Test 10/13/24 18:50 10/13/24 16:37 10/13/24 16:24 Range/Units Lactic Acid Level 5.7 *H 0.4-2.0 mmol/L Total Bilirubin 0.6 0.2-1.0 mg/dL Direct Bilirubin 0.3 <0.3 mg/dL Aspartate Amino Transferase (AST) 13 <34 U/L Alanine Aminotransferase (ALT) < 9 7-40 U/L Alkaline Phosphatase 78 46-116 U/L Troponin I High Sensitivity 20 </=54 ng/L Total Protein 6.5 5.7-8.2 g/dL Albumin 3.9 3.2-4.8 g/dL Lipase 24 12-53 U/L Urine Color Light-red Yellow Urine Clarity Ex.turbid Clear Urine pH 5.5 5.0-9.0 Urine Specific [place] 1.019 1.001-1.035 Urine Protein 1+ H Negative Urine Ketones Trace Negative Urine Blood 3+ H Negative /uL Urine Nitrite Negative Negative Urine Bilirubin Negative Negative Urine Urobilinogen Normal Negative mg/dL Urine Leukocyte Esterase 1+ Negative /uL Urine RBC 5157 0 - 3 /hpf Urine Microscopic WBC 2 0-3 /HPF Urine Squamous Epithelial Cells Few <5 /hpf Urine Bacteria None seen None Seen /hpf Urine Mucus Few None Seen Urine Glucose Normal Normal mg/dL White Blood Count 4.9 4.4-10.8 10^3/uL Red Blood Count 3.72 L 4.5-5.90 10^6/uL Hemoglobin 11.4 L 13.5-17.5 g/dL Hematocrit 35.2 L 41.0-53.0 % Mean Corpuscular Volume 94.6 80.0-100.0 fL Mean Corpuscular Hemoglobin 30.5 28.0-32.0 pg Mean Corpuscular Hemoglobin Concent 32.2 32.0-36.0 g/dL Red Cell Distribution Width 16.6 H 11.8-14.3 % Platelet Count 86 L 140-450 10^3/uL Mean Platelet Volume 8.7 6.9-10.8 fL Neutrophils (%) (Auto) 70.0 37.0-80.0 % Lymphocytes (%) (Auto) 22.9 10.0-50.0 % Monocytes (%) (Auto) 6.1 0.0-12.0 % Eosinophils (%) (Auto) 0.3 0.0-7.0 % Basophils (%) (Auto) 0.7 0.0-2.0 % Neutrophils # (Auto) 3.4 1.6-8.6 10 ^3/uL Lymphocytes # (Auto) 1.1 0.4-5.4 10 ^3/uL Monocytes # (Auto) 0.3 0-1.3 10 ^3/uL Eosinophils # (Auto) 0 0-0.8 10 ^3/uL Basophils # (Auto) 0 0-0.2 10 ^3/uL Nucleated Red Blood Cells 0.0 % Sodium Level 142 136-145 mmol/L Potassium Level 5.2 H 3.5-5.1 mmol/L Chloride Level 105 98-107 mmol/L Carbon Dioxide Level 12 L 20-31 mmol/L Anion Gap 25 H 5-15 Blood Urea Nitrogen 65 H 9-23 mg/dL Creatinine 6.64 H 0.700-1.30 mg/dL Glomerular Filtration Rate Calc 8 >90 mL/min BUN/Creatinine Ratio 9.8 L 10.0-20.0 Serum Glucose 94 74-106 mg/dL Calcium Level 8.6 L 8.7-10.4 mg/dL B-Type Natriuretic Peptide 127.31 0-100 pg/mL Assessment/Plan Assessment/Plan Assessment/plan # SHAMAR on ?CKD (ANURIC) -Nephrology consult -IV fluids were given in the ED -urine studies strict I and O c3 and c4 uric acid mag phos Creatine kinase #Severe Metabolic Anion gap Acidosis due to Uremia, and lactic acidosis -Bicarb drip -venous blood gas #mild normocytic anemia monitor #Hyperkalemia due to SHAMAR -corrected Monitor BMP # Diabetes mellitus type 2 -sliding scale insulin -hemoglobin A1c # BPH bladder usg #Acute/subacute appearing fracture of the right femoral head and neck with intertrochanteric extension #Right femur intramedullary hilda and intertrochanteric screw. -CT Orthopedics consult #Marked gallbladder distention and cholelithiasis.. USG IV antibiotics #Absent Left Kidney seen on CT #?ileus ?hypomotility ?bowel obstruction. -Gastric distention seen on CT -Fecal like contents within the small bowel which can be seen with ileus, hypomotility, bowel obstruction SEEN on CT NG tube NPO Surgical consult # cough with hemoptysis -Awaiting imaging DVT prophylaxis SCDs avoiding Lovenox because of low platelets, possible surgery Critical Care time >67 min CHEMICAL CODE Code status discussion with dr Min Plan discussed with: Patient My Orders Orders - GLADIS VALERA RESIDENT Procedure Category Date Status Time Admit ADMIT 10/13/24 Transmitted 23:00 Oxygen By Nasal RT 10/13/24 Transmitted Cannula 23:00 Stat Ekg For Chest JORDYN 10/13/24 In Process Pain 23:00 Notify Of Changes JORDYN 10/13/24 In Process From Base 23:00 Client Services Associate For [facility] 10/13/24 In Process 24 Hours 23:00 Emergency Dysrhythmia JORDYN 10/13/24 In Process Protocol 23:00 Rhythm Strips Once [facility] 10/13/24 In Process Every Shift 23:00 Date of Service: Oct 13, 2024 Billing Provider: MÓNICA MIN MD Common Visit Codes: 58488-[id number] CARE 30-74 MIN GLADIS VALERA RESIDENT Oct 13, 2024 23:33 MÓNICA MIN MD Oct 14, 2024 10:05
[2024-10-14] VITALS (56 sets, daily range): BP systolic 83–130; BP diastolic 36–56; PULSE 73–103; RESP 12–26; TEMP 89.9–97; O2SAT 90–100
[2024-10-14] MEDS: InsuLIN REG 1unit/0.01ml Soln (100units/ml) SC SCH
[2024-10-14 00:08] LABS: Lactic Acid w/Reflex 5.7 mmol/L (0.4-2.0)
[2024-10-14] MEDS: ACCU-CHEK COMFORT CURVE STRIP VI SCH (00:09)
[2024-10-14] MEDS: SODIUM ZIRCONIUM CYCL 10 GM PAK PO ONE (00:15)
[2024-10-14] MEDS: SODIUM BICARB 8.4% 50Meq/50ml SYR INJ IV ONE (00:15)
[2024-10-14] MEDS ORDERED: SODIUM CHLORIDE 0.9% 1,000 ML IV SCH (00:15)
[2024-10-14] MEDS: ALBUTEROL SULF 2.5 MG/0.5ML(0.5%) NEB SOLN NEB ONE (00:30)
[2024-10-14 01:40] LABS: Chloride 107 mmol/L (98-107); Potassium 4.4 mmol/L (3.5-5.1); Sodium 143 mmol/L (136-145)
[2024-10-14 01:41] LABS: Anion Gap 26.00001 (5-15)
[2024-10-14 01:43] LABS: Calcium 8.2 mg/dL (8.7-10.4)
[2024-10-14 01:44] LABS: Carbon Dioxide < 10 mmol/L (20-31)
[2024-10-14 01:46] LABS: BUN/Creatinine Ratio 8.8 (10.0-20.0)
[2024-10-14 01:50] LABS: COVID19 ANTIGEN SOFIA FIA NEGATIVE (NEGATIVE); Rapid Influenza A Negative (Negative); Rapid Influenza B Negative (Negative)
[2024-10-14 01:53] LABS: Blood Urea Nitrogen 57 mg/dL (9-23); Glucose 137 mg/dL (74-106)
[2024-10-14 01:59] LABS: INR 1.01 (0.9-1.15); Partial Thromboplastin Time 34.8 SEC (24.5-34.5); Prothrombin Time 10.7 sec (9.3-11.8)
[2024-10-14] MEDS: ONDANSETRON HCL 4 MG/2 ML VIAL IV PRN (02:09)
--- NOTE | 2024-10-14 02:21 | DVH ---
BILATERAL LOWER EXTREMITY VENOUS DOPPLER ULTRASOUND CLINICAL HISTORY: Pain. rule out DVT TECHNIQUE: Grayscale ultrasound with compression, color Doppler flow imaging with pulsed duplex sonog tania of the bilateral lower extremity deep venous system from the common femoral veins through the p opliteal veins is performed. COMPARISON: None FINDINGS: Right common femoral vein: Negative. Right greater saphenous vein: Negative. Right deep femoral vein: Negative. Right femoral vein: Negative. Right popliteal vein: Negative. Left common femoral vein: Negative. Left greater saphenous vein: Negative. Left deep femoral vein: Negative. Left femoral vein: Negative. Other: Imaged bilateral popliteal trifurcation and posterior tibial veins demonstrate color flow. An enlarged right groin lymph node measures approximately 2.5 cm in length. IMPRESSION: No sonographic evidence of deep venous thrombosis in either lower extremity at this time. Enlarged right inguinal lymph node which may be reactive. Please correlate clinically. HS:Y
[2024-10-14 03:07] LABS: Magnesium 1.5 mg/dL (1.6-2.6); Phosphorus 5.6 mg/dL (2.4-5.1); Uric Acid 10.6 mg/dL (3.7-9.2)
[2024-10-14] MEDS: SODIUM BICARB 50mEq/50ml Vial 150 ML in D5W 5% 1,000 ML IV ONE ×2 (03:10→16:00)
[2024-10-14] MEDS: PIPERACILLIN-TAZO 4.5GM 100 ML IV ONE (03:15)
[2024-10-14] MEDS: PANTOPRAZOLE 40 MG/10 ML VIAL INJ IV ONE (03:15)
[2024-10-14] MEDS: SODIUM BICARB 8.4% 50Meq/50ml SYR INJ ONE (03:50)
--- NOTE | 2024-10-14 03:55 | DVH ---
CHEST RADIOGRAPH Indication: hemoptysis Technique: Single frontal view of the chest was obtained COMPARISON: None FINDINGS: Lines and Tubes: Right Port-A-Cath terminates within the proximal superior vena cava. Lungs: Chronic appearing bilateral interstitial pulmonary markings. The right costophrenic angle is excluded from the study. No evidence of focal consolidation. Pleura: No effusion. No pneumothorax. Cardiomediastinal contours: Unremarkable Bones: Unremarkable IMPRESSION: 1. No evidence of acute disease. Chronic appearing bilateral interstitial pulmonary markings. Right costophrenic angle excluded. 2. Right Port-A-Cath.
[2024-10-14] MEDS: SODIUM BICARB 8.4% 50Meq/50ml SYR Vial IV ONE ×3 (04:00→09:12)
--- NOTE | 2024-10-14 04:21 | DVH ---
EXAM: US GALLBLADDER HISTORY: gb stones, SHAMAR COMPARISON: CT scan of the abdomen and pelvis dated 10/13/2024. TECHNIQUE: Right upper quadrant ultrasound was performed. FINDINGS: Multiple gallstones are present without gallbladder wall thickening. The gallbladder is dis tended up to 10.2 cm length x 4.7 cm width, consistent with hydrops. The patient was not tender to tr ansducer pressure over the gallbladder. The liver measures 21 cm longitudinal. No intrahepatic biliar y ductal dilatation or liver mass. There is hepatopetal portal venous color Doppler flow. The common duct measures 6.2 mm in diameter. The partially visualized pancreas is unremarkable. The intrahepatic portion of the IVC is patent. No upper abdominal aortic ectasia. The right kidney measures 12.6 cm i n length and is normal in appearance. IMPRESSION: 1. Cholelithiasis with gallbladder hydrops which may indicate acute cholecystitis. 2. Hepatomegaly.
--- NOTE | 2024-10-14 04:58 | DVH ---
History: SHAMAR Comparison: None Technique: Grayscale and color Doppler ultrasound of the pelvis was obtained. Pre-and postvoid images of the bladder were obtained. FINDINGS/IMPRESSION: Godwin catheter in the urinary bladder. Prostate gland measures 48 cc.
[2024-10-14] MEDS ORDERED: metroNIDAZOLE 500MG/100ML 100 ML IV SCH (06:00)
[2024-10-14] MEDS: MAGNESIUM SULFATE 1GM/100ML 100 ML IV ONE (06:00)
[2024-10-14 06:43] LABS: Alanine Aminotransferase 11 U/L (7-40); Albumin 3.7 g/dL (3.2-4.8); Alkaline Phosphatase 79 U/L (46-116); Anion Gap 30.00001 (5-15); Aspartate Aminotransferase 16 U/L (<34); BUN/Creatinine Ratio 9.7 (10.0-20.0); Chloride 105 mmol/L (98-107); Potassium 4.7 mmol/L (3.5-5.1); Sodium 145 mmol/L (136-145)
[2024-10-14 06:44] LABS: Blood Urea Nitrogen 64 mg/dL (9-23); Calcium 8.2 mg/dL (8.7-10.4); Creatine Kinase IFCC 54 U/L (46-171); Glucose 192 mg/dL (74-106)
[2024-10-14 06:45] LABS: Bilirubin, Total 0.3 mg/dL (0.2-1.0); Carbon Dioxide < 10 mmol/L (20-31)
[2024-10-14 08:41] LABS: Basophils # (auto) 0 10 ^3/uL (0-0.2); Basophils % (auto) 0.5 % (0.0-2.0); Eosinophils # (auto) 0 10 ^3/uL (0-0.8); Eosinophils % (auto) 0.1 % (0.0-7.0); Hematocrit 34.2 % (41.0-53.0); Hemoglobin 10.4 g/dL (13.5-17.5); Lymphocytes # (auto) 1.3 10 ^3/uL (0.4-5.4); Lymphocytes % (auto) 14.3 % (10.0-50.0); Mean Corpuscular Hemoglobin 31.2 pg (28.0-32.0); Mean Corpuscular Hgb Conc. 30.5 g/dL (32.0-36.0); Mean Corpuscular Volume 102.5 fL (80.0-100.0); Monocytes # (auto) 0.5 10 ^3/uL (0-1.3); Monocytes % (auto) 5.7 % (0.0-12.0); Neutrophils # (auto) 7.3 10 ^3/uL (1.6-8.6); Neutrophils % (auto) 79.4 % (37.0-80.0); Platelet Count (auto) 104 10^3/uL (140-450); Red Blood Cells 3.34 10^6/uL (4.5-5.90); Red Cell Distribution Width 16.9 % (11.8-14.3); White Blood Cell 9.2 10^3/uL (4.4-10.8)
[2024-10-14] MEDS ORDERED: cefTRIAXone 1GM/50ML D5W 50 ML IV SCH (09:00)
[2024-10-14] MEDS: SODIUM BICARB 50mEq/50ml Vial 150 ML in D5W 5% 1,000 ML IV SCH (09:00)
[2024-10-14] MEDS ORDERED: SODIUM BICARB 50mEq/50ml Vial 150 ML in D5W 5% 1,000 ML IV SCH (09:45)
--- NOTE | 2024-10-14 09:51 | DVHINCON2 ---
Date of service: Oct 14, [address] Damon Reason for Consultation Acute kidney injury History of Present Illness Patient is a 69-year-old male with past medical history of diabetes mellitus, hyperlipidemia, BPH and renal cell carcinoma is admitted for abdominal pain associated with nausea vomiting. On admission patient found to have elevated BUN creatinine nephrology is consulted for acute kidney injury Past Medical History Diabetes mellitus Hyperlipidemia BPH Past Surgical History Left nephrectomy TURP Allergies: Coded Allergies: NO KNOWN ALLERGIES (Unverified , 01/06/18) Home Meds Active Scripts Hydrocodone-Acetaminophen (Hydrocodone Bitartrate/AC 5-325 mg) 1 Tab Tab, 1 TAB PO Q6HP PRN for 5 Days, #20 TAB Prov:DEMARIO HARDWICK PATENT LEGAL ASSISTANT 08/10/24 Metformin Hydrochloride (Metformin Hcl) 850 Mg Tab, 850 MG PO BID for 30 Days, #60 TAB 2 Refills Prov:GISELLE PALOMARES MD 04/23/24 Amlodipine Besylate (Amlodipine Besylate) 10 Mg Tab, 10 MG PO DAILY for 30 Days, #30 TAB 2 Refills Prov:GISELLE PALOMARES MD 04/23/24 Reported Medications Metoprolol Succinate (Metoprolol Succinate Er) 25 Mg Tab, 0.5 TAB PO DAILY 07/30/24 Lisinopril (Lisinopril) 2.5 Mg Tab, 1 TAB PO DAILY 07/30/24 Finasteride (Finasteride) 5 Mg Tab, 1 TAB PO DAILY 04/18/24 Tamsulosin Hcl (Tamsulosin Hcl) 0.4 Mg Cap, 1 CAP PO BID 04/18/24 Simvastatin (Simvastatin) 10 Mg Tab, 1 TAB PO 04/18/24 Current Medications Current Medications Medications (Trade) Dose Ordered Sig/Jessica Route PRN Reason Start Time Stop Time Status Last Admin Diagnostic Test (Pha) (Accu-Chek Comfort Curve T) 1 strip IQ4HR 10/14/24 00:00 10/14/24 08:25 Insulin Human Regular (InsuLIN R) IQ4HR SC 10/14/24 00:00 10/14/24 08:53 Dextrose 50 ml UD PRN IV Blood Sugar LESS THAN 60 10/13/24 23:30 Ondansetron HCl (Zofran) 4 mg Q4HPRN PRN IV NAUSEA / VOMITING 10/14/24 00:15 10/14/24 02:09 Sodium Chloride 1,000 ml @ 75 mls/hr [id number] IV 10/14/24 00:15 10/14/24 01:57 DC Ceftriaxone Sodium 50 ml @ 100 mls/hr DAILY@09 IV 10/14/24 09:00 10/14/24 03:09 DC Metronidazole 100 ml @ 100 mls/hr Q8HR IV 10/14/24 06:00 10/14/24 03:09 DC Piperacillin Sod/ Tazobactam Sod 100 ml @ 25 mls/hr Q12H IV 10/14/24 16:00 Pantoprazole Sodium (Protonix) 40 mg DAILY IV 10/15/24 10:00 Sodium Bicarbonate 150 ml/Dextrose 1,150 ml @ 100 mls/hr [id number] IV 10/14/24 09:45 10/14/24 10:53 DC Sodium Bicarbonate 150 ml/Dextrose 1,150 ml @ 250 mls/hr Q4H36M IV 10/14/24 09:00 10/14/24 09:00 Norepinephrine Bitartrate 250 ml @ 1.875 mls/ hr Q24H IV 10/14/24 10:00 10/14/24 10:00 Review of Systems All 12 item review of systems reviewed with the patient nonsignificant except what is mentioned in the history of present illness H&P Exam Vital Signs/I&O Vital Sign Date Time Temp Pulse Resp B/P (MAP) Pulse Ox O2 Delivery O2 Flow Rate FiO2 10/14/24 10:00 84/35 10/14/24 09:00 89 19 100 Room Air* 0 21 10/13/24 16:50 97.9 97.9 Intake and Output 10/13/24 10/14/24 19:00 07:00 Intake Total 2150 ml 650 ml Balance 2150 ml 650 ml Intake IV Total 2150 ml 650 ml Physical Exam Patient lying in bed moderate abdominal pain Lungs clear to auscultation bilaterally Cardiac exam regular rate and rhythm GI right upper quadrant tenderness Godwin catheter Extremities no clubbing cyanosis or edema Neuro nonfocal Labs/Diagnostic Data Labs/Diagnostic Data Laboratory Tests Test 10/14/24 11:20 10/14/24 08:56 10/14/24 08:15 10/14/24 06:51 Range/Units Blood Gas Specimen Type Venous Arterial Blood Gas Sample Site Vbg - n/a Right radial Blood Gas Patient Temperature 37.0 37.0 Arterial Blood Date Drawn [id number] Jax Test N/a Yes Venous Blood pH 6.924 *L 7.320-7.430 Venous Blood pCO2 at Patient Temp 16.2 L 38.0-54.0 mmHg Venous Blood pO2 at Patient Temp 68.2 H 23.0-48.0 mmHg Venous Blood HCO3 3.3 L 22.0-29.0 mmol/L Venous Blood Base Excess -28.0 L -2.0-3.0 mmol/L Blood Gas Modality Room air Room air FiO2 % 21.0 21.0 Blood Gas Critical Value Read Back Yes Yes Blood Gas Notified Whom francis Richards p md Blood Gas Notified Time [id number] Blood Gas Notified By Gas Compressor Operator adi palumbo Gas Compressor Operator adi palumbo Arterial Blood pH 6.863 *L 7.350-7.450 Arterial Blood Partial Pressure CO2 < 14.1 *L 35.0-48.0 mmHg Arterial Blood Partial Pressure O2 146.3 H 83.0-108.0 mmHg Arterial Blood Oxygen Saturation 97.9 94.0-98.0 % Arterial Blood Oxyhemoglobin 96.8 94.0-98.0 % Arterial Blood Carboxyhemoglobin 0.3 L 0.5-1.5 % Arterial Blood Methemoglobin 0.8 0.0-1.5 % Blood Gas Total Hemoglobin 11.00 L 13.5-17.5 g/dL White Blood Count 9.2 # 4.4-10.8 10^3/uL Red Blood Count 3.34 L 4.5-5.90 10^6/uL Hemoglobin 10.4 L 13.5-17.5 g/dL Hematocrit 34.2 L 41.0-53.0 % Mean Corpuscular Volume 102.5 #H 80.0-100.0 fL Mean Corpuscular Hemoglobin 31.2 28.0-32.0 pg Mean Corpuscular Hemoglobin Concent 30.5 L 32.0-36.0 g/dL Red Cell Distribution Width 16.9 H 11.8-14.3 % Platelet Count 104 L 140-450 10^3/uL Mean Platelet Volume 8.9 6.9-10.8 fL Neutrophils (%) (Auto) 79.4 37.0-80.0 % Lymphocytes (%) (Auto) 14.3 10.0-50.0 % Monocytes (%) (Auto) 5.7 0.0-12.0 % Eosinophils (%) (Auto) 0.1 0.0-7.0 % Basophils (%) (Auto) 0.5 0.0-2.0 % Neutrophils # (Auto) 7.3 1.6-8.6 10 ^3/uL Lymphocytes # (Auto) 1.3 0.4-5.4 10 ^3/uL Monocytes # (Auto) 0.5 0-1.3 10 ^3/uL Eosinophils # (Auto) 0 0-0.8 10 ^3/uL Basophils # (Auto) 0 0-0.2 10 ^3/uL Nucleated Red Blood Cells 0.0 % Hemoglobin A1c 5.5 <5.7 % A1C Vitamin D 25-Hydroxy 31.0 30.0-100 ng/mL Parathyroid Hormone (Intact) 42.3 18.4-80.1 pg/mL Hepatitis B Surface Antigen Negative Negative POC Glucose 203 H 70-106 mg/dl Test 10/14/24 05:20 10/14/24 01:30 10/14/24 01:20 10/14/24 01:00 Range/Units Sodium Level 145 143 136-145 mmol/L Potassium Level 4.7 4.4 3.5-5.1 mmol/L Chloride Level 105 107 98-107 mmol/L Carbon Dioxide Level < 10 *L < 10 *L 20-31 mmol/L Anion Gap 30.69215 H 26.08816 H 5-15 Blood Urea Nitrogen 64 H 57 H 9-23 mg/dL Creatinine 6.63 H 6.48 H 0.700-1.30 mg/dL Glomerular Filtration Rate Calc 8 9 >90 mL/min BUN/Creatinine Ratio 9.7 L 8.8 L 10.0-20.0 Serum Glucose 192 H 137 H 74-106 mg/dL Calcium Level 8.2 L 8.2 L 8.7-10.4 mg/dL Total Bilirubin 0.3 0.2-1.0 mg/dL Aspartate Amino Transferase (AST) 16 <34 U/L Alanine Aminotransferase (ALT) 11 7-40 U/L Alkaline Phosphatase 79 46-116 U/L Creatine Kinase 54 46-171 U/L Total Protein 6.0 5.7-8.2 g/dL Albumin 3.7 3.2-4.8 g/dL Blood Gas Specimen Type Venous Blood Gas Sample Site Vbg - n/a Blood Gas Patient Temperature 37.0 Arterial Blood Date Drawn [id number] Jax Test N/a Venous Blood pH 6.995 *L 7.320-7.430 Venous Blood pCO2 at Patient Temp 22.2 L 38.0-54.0 mmHg Venous Blood pO2 at Patient Temp 71.0 H 23.0-48.0 mmHg Venous Blood HCO3 5.3 L 22.0-29.0 mmol/L Venous Bld O2 Saturation (Measured) 87.9 H 60.0-85.0 % Venous Blood Base Excess -24.6 L -2.0-3.0 mmol/L Venous Blood Total Hemoglobin 11.5 L 13.5-17.5 g/dL Venous Blood Oxyhemoglobin 87.2 H 0.0-79.0 % Venous Blood Carboxyhemoglobin 0.2 L 0.5-1.5 % Venous Blood Methemoglobin 0.6 0.0-1.5 % Blood Gas Modality Room air FiO2 % 21.0 Blood Gas Critical Value Read Back Yes Blood Gas Notified Whom aubrey Jacques Blood Gas Notified Time [id number] Blood Gas Notified By Gas Compressor Operator jose luis muñoz Prothrombin Time 10.7 9.3-11.8 sec Prothrombin Time INR 1.01 0.9-1.15 Activated Partial Thromboplast Time 34.8 H 24.5-34.5 SEC Lactic Acid Level 7.5 *H 0.4-2.0 mmol/L Uric Acid 10.6 H 3.7-9.2 mg/dL Phosphorus Level 5.6 H 2.4-5.1 mg/dL Magnesium Level 1.5 L 1.6-2.6 mg/dL Influenza Type A Antigen Negative Negative Influenza Type B Antigen Negative Negative SARS-CoV-2 Antigen (Rapid) Negative NEGATIVE Test 10/14/24 00:06 10/13/24 23:20 10/13/24 18:50 10/13/24 17:15 Range/Units POC Glucose 109 H 70-106 mg/dl Lactic Acid Level 5.7 *H 5.7 *H 4.9 *H 0.4-2.0 mmol/L Total Bilirubin 0.6 0.2-1.0 mg/dL Direct Bilirubin 0.3 <0.3 mg/dL Aspartate Amino Transferase (AST) 13 <34 U/L Alanine Aminotransferase (ALT) < 9 7-40 U/L Alkaline Phosphatase 78 46-116 U/L Troponin I High Sensitivity 20 20 </=54 ng/L Total Protein 6.5 5.7-8.2 g/dL Albumin 3.9 3.2-4.8 g/dL Lipase 24 12-53 U/L Test 10/13/24 16:24 Range/Units White Blood Count 4.9 4.4-10.8 10^3/uL Red Blood Count 3.72 L 4.5-5.90 10^6/uL Hemoglobin 11.4 L 13.5-17.5 g/dL Hematocrit 35.2 L 41.0-53.0 % Mean Corpuscular Volume 94.6 80.0-100.0 fL Mean Corpuscular Hemoglobin 30.5 28.0-32.0 pg Mean Corpuscular Hemoglobin Concent 32.2 32.0-36.0 g/dL Red Cell Distribution Width 16.6 H 11.8-14.3 % Platelet Count 86 L 140-450 10^3/uL Mean Platelet Volume 8.7 6.9-10.8 fL Neutrophils (%) (Auto) 70.0 37.0-80.0 % Lymphocytes (%) (Auto) 22.9 10.0-50.0 % Monocytes (%) (Auto) 6.1 0.0-12.0 % Eosinophils (%) (Auto) 0.3 0.0-7.0 % Basophils (%) (Auto) 0.7 0.0-2.0 % Neutrophils # (Auto) 3.4 1.6-8.6 10 ^3/uL Lymphocytes # (Auto) 1.1 0.4-5.4 10 ^3/uL Monocytes # (Auto) 0.3 0-1.3 10 ^3/uL Eosinophils # (Auto) 0 0-0.8 10 ^3/uL Basophils # (Auto) 0 0-0.2 10 ^3/uL Nucleated Red Blood Cells 0.0 % Sodium Level 142 136-145 mmol/L Potassium Level 5.2 H 3.5-5.1 mmol/L Chloride Level 105 98-107 mmol/L Carbon Dioxide Level 12 L 20-31 mmol/L Anion Gap 25 H 5-15 Blood Urea Nitrogen 65 H 9-23 mg/dL Creatinine 6.64 H 0.700-1.30 mg/dL Glomerular Filtration Rate Calc 8 >90 mL/min BUN/Creatinine Ratio 9.8 L 10.0-20.0 Serum Glucose 94 74-106 mg/dL Calcium Level 8.6 L 8.7-10.4 mg/dL Troponin I High Sensitivity 22 </=54 ng/L B-Type Natriuretic Peptide 127.31 0-100 pg/mL Assessment Acute kidney injury superimposed Chronic Kidney Disease secondary hemodynamic mediated Septic shock Acute cholecystitis Metabolic acidosis Hypomagnesemia Diabetes mellitus type 2 History of left nephrectomy Metastatic renal cell carcinoma Anemia of chronic kidney disease Recommendations Closely monitor fluid and electrolytes Avoid nephrotoxic medications Godwin catheter Strict I&Os Check urine electrolytes urinalysis and protein excretion Right kidney reported within normal limit on ultrasound I agree with IV fluid hydration with a bicarb drip Magnesium sulfate IV piggyback Surgery consult We will follow closely and assess for need for hemodialysis daily Patient seen and examined by myself in the ER. I discussed my plan of care with the patient, his brothers and the primary nurse at the bedside I would like to thank Dr. Padilla for the consult, will follow up Plan discussed with: Patient ALONSO HOOPER MD Oct 14, 2024 09:51
[2024-10-14] MEDS: NOREPINEPHRINE 8 MG/250ML KIT 250 ML IV SCH (10:00)
[2024-10-14] MEDS: NOREPINEPHRINE 8 MG/250ML KIT 250 ML IV ONE (10:10)
--- NOTE | 2024-10-14 11:41 | DVHNC2 ---
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: Attending Physician Indication: Hypotension, CVP monitoring Room prepared for procedure: Yes Ent Consultant performed hand hygien: Yes Maximal sterile barrier precau: Mask/Eye shield, Sterile gown Skin Preparation: Chlorhexidine gluconate, Providine iodine Skin preparation completely dr: Yes Insertion site: Left, Internal jugular Central line catheter type: [id number] dialysis Number of lumens: 3 Antiseptic ointment applied to: Yes Post Assessment: Chest X-Ray Date of Service: Oct 14, 2024 Billing Provider: JOSE FRANCISCO ALVARENGA MD Common Visit Codes: [id number] INP/OBS CARE (HIGH) Secondary Visit Codes: [id number] STANDBY SERVICE Consultation Codes: [id number] CONSULT <45MIN Procedure Codes: [id number] NON-TUNNEL CV CATH JOSE FRANCISCO ALVARENGA MD Oct 14, 2024 11:41
--- NOTE | 2024-10-14 11:55 | DVHPN2 ---
Progress Note Date Seen: Oct 14, 2024 Medical Necessity Reason Pt with a Central, PICC or Fol: Yes The following are medically ne: Central Line, Luu Catheter Reason for luu catheter: Strict I&O Subjective Patient reports: No new complaints Review of Systems: HEENT:Normal, CVS:Normal, RESPIRATORY:Normal, GI:Normal, :Normal, MSK:Normal, NEURO:Normal Objective vital signs Vital Sign Date Time Temp Pulse Resp B/P (MAP) Pulse Ox O2 Delivery O2 Flow Rate FiO2 10/14/24 10:00 84/35 10/14/24 08:00 85 10/14/24 05:15 18 92 10/14/24 00:32 Room Air* 0 21 10/13/24 16:50 97.9 97.9 Total Intake and Output 10/13/24 10/13/24 10/14/24 15:00 23:00 07:00 Intake Total 2250 ml 550 ml Balance 2250 ml 550 ml medications Current Medications Medications Dose Ordered Sig/Jessica Route Start Time Stop Time Status Last Admin Dose Admin Diagnostic Test (Pha) 1 strip IQ4HR 10/14/24 00:00 10/14/24 08:25 1 STRIP Insulin Human Regular IQ4HR SC 10/14/24 00:00 10/14/24 08:53 4 UNITS Dextrose 50 ml UD PRN IV 10/13/24 23:30 Ondansetron HCl 4 mg Q4HPRN PRN IV 10/14/24 00:15 10/14/24 02:09 4 MG Piperacillin Sod/ Tazobactam Sod 100 ml @ 25 mls/hr Q12H IV 10/14/24 16:00 Pantoprazole Sodium 40 mg DAILY IV 10/15/24 10:00 Sodium Bicarbonate 150 ml/Dextrose 1,150 ml @ 250 mls/hr Q4H36M IV 10/14/24 09:00 10/14/24 09:00 250 MLS/HR Norepinephrine Bitartrate 250 ml @ 1.875 mls/ hr Q24H IV 10/14/24 10:00 10/14/24 10:00 1.875 MLS/HR Examination: GENERAL:Normal, HEENT:Normal, NECK:Normal, LUNGS:Normal, CVS:Normal, ABDOMEN:Normal, MSK:Normal, SKIN:Normal, NEURO:Normal, :Normal laboratory and microbiology Laboratory Tests 10/14/24 08:15 10/14/24 05:20 Test 10/14/24 05:20 Range/Units Serum Glucose 192 H 74-106 mg/dL Problem List/Assessment/Plan Problem List/Assessment/Plan #1 septic shock: iv pressors, iv antibiotics #2 acute on chronic renal failure #3 mets renal cancer s/p right nephrectomy #4 severe metabolic acidosis #5 gallstones with ?acute stone #6 s/p right hip fracture #7 anemia #8 thrombocytopenia #9 dm long dw brothers and royala Hiram- kvng dnr status and likely hospice care Plan discussed with: Patient, Other (brothers) My Orders My Orders Orders - GISELLE PALOMARES MD Procedure Category Date Status Time * Radiologist Consult CONS 10/14/24 Transmitted 11:20 Venous Blood Gas RT 10/14/24 Logged 11:39 * Supervisor Metal Furniture Assembly CONS 10/14/24 Transmitted Consult Critical Care Time (mins): 51 (critical care time excluding procedures is 51 mins) Date of Service: Oct 14, 2024 Billing Provider: GISELLE PALOMARES MD Common Visit Codes: [id number] CARE 30-74 MIN GISELLE PALOMARES MD Oct 14, 2024 11:55
[2024-10-14 12:41] LABS: Urine Bacteria MANY /hpf (None Seen); Urine Blood 2+ /uL (Negative); Urine Clarity Ex.Turbid (Clear); Urine Color Light-Brown (Yellow); Urine Mucus FEW (None Seen); Urine Protein, UAD 1+ (Negative); Urine Specific Gravity 1.008 (1.001-1.035); Urine Squamous Epithelial Cell FEW /hpf (<5); Urine Urobilinogen Normal (Negative); Urine WBC 2539 /HPF (0-3); Urine WBC Clumps PRESENT /hpf (None Seen); Urine pH 5.5 (5.0-9.0)
[2024-10-14 12:46] LABS: Protein, Urine 165.8 mg/dL (1-14)
[2024-10-14 12:48] LABS: Creatinine, Urine 29.32 mg/dL (30.0-125.0); Urine Protein/Creatinine Ratio 5.65
[2024-10-14 12:49] LABS: Amphetamine Screen, Urine Neg (NEGATIVE); Barbiturate Scree,Urine Neg (NEGATIVE); Benzodiazephine Screen, Urine Neg (NEGATIVE); Cannabinoid Screen, Urine Neg (NEGATIVE); Cocaine Screen, Urine Neg (NEGATIVE); Opiate Scree,Urine Neg (NEGATIVE); Phencyclidine Screen, Urine Neg (NEGATIVE)
[2024-10-14] MEDS: PIPERACILLIN-TAZOB 3.375GM 100 ML IV SCH (16:00)
--- NOTE | 2024-10-14 17:57 | DVH ---
EXAM: XY CHEST PORTABLE Indication: pain; s/p TL CVL insertion Technique: Single frontal view of the chest was obtained Comparison: XY CHEST XRAY 1 VIEW on DOS: 10/14/24 FINDINGS: Lines and Tubes: Right chest port tip projects over the superior vena cava. Left internal jugular central venous catheter tip projects over the superior vena cava. Lungs: Diffuse interstitial opacities. Pleura: No effusion. No pneumothorax. Cardiomediastinal contours: Unremarkable Bones: No acute osseous abnormality. IMPRESSION: Mild pulmonary vascular congestion. DHOUSE SUPERVISOR AKBAR
--- NOTE | 2024-10-14 18:01 | DVH ---
EXAM: XY PELVIS AP CLINICAL INDICATION: righthip TECHNIQUE: XY PELVIS AP Comparison: None FINDINGS/IMPRESSION: There is no evidence of acute fracture or dislocation. Intramedullary hilda in the bilateral femurs. The alignment is anatomical. There is no radiopaque foreign body. N RESOURCES COMPLIANCE MANAGER AKBAR
[2024-10-14] MEDS: ACETAMINOPHEN 650 mg PER 20.3 mL UD PO PRN (18:56)
--- NOTE | 2024-10-14 19:17 | DVHINCON2 ---
Consult Note Consult Consult Note Location: Emergency Department Consulting Service: Orthopedic Surgery Reason for Consult: Rule out orthopedic etiology related to right hip in the setting of nausea/vomiting from abdominal pain for which patient presented to ER. --- History of Present Illness: Mr. Juanito Galindo presented to the emergency room yesterday for evaluation of vomiting and Nausea. past medical history of diabetes mellitus, hyperlipidemia, BPH and renal cell carcinoma is admitted for abdominal pain associated with nausea vomiting. The emergency team requested orthopedic consultation to evaluate for any possible right hip pathology that could be contributing to the patient's presentation. The patient denies any recent trauma, falls, or direct injury to the hip. There are no complaints of right hip mechanical pain or functional limitations at this time. Pt s/p Right CMN FROM July 2024 and some progressive improvement in Ambulation with Walker reported by patient and his brother, who also serves as his paralegals, they denied any worsening or recent fall or hip pain today. Past many years hx of Left CMN no concerns reported or hip pain from it. He appears to be in overall poor health --- Physical Examination: General: Ill-appearing but alert; appears fatigued and systemically unwell. Right Hip: No swelling, deformity, or discoloration. Non-tender to palpation over greater trochanter, groin, or SI joint. Range of Motion: Preserved and painless in all planes. Neurovascular: Intact in the right lower extremity. Sensation and motor function grossly preserved. Distal pulses 2+. Gait: Not assessed due to patients acute condition --- Imaging: There is no evidence of acute fracture or dislocation. Intramedullary hilda in the bilateral femurs. The alignment is anatomical. There is no radiopaque foreign body. --- Assessment: Case discussed with images with oncall surgeon DR. FELICIANO Mr. Juanito Galindo is a complex, medically fragile patient who presented with N/V and abdominal pain and was found to be septic. He has a significant oncologic and renal history undergoing active Nephro/Medicine team and other specialist evaluation. Orthopedic evaluation does not reveal any acute musculoskeletal pathology of the right hip. There are no findings to suggest new fracture, dislocation, or mechanical source of pain. Given the patients current systemic illness, including sepsis and metabolic instability, and overall poor surgical candidacy, no orthopedic intervention is indicated at this time. --- Plan: No orthopedic surgical intervention indicated. Recommend continued medical and other specialist interventions and evaluation Re-consult orthopedics if any new musculoskeletal issues arise Patient and ER physician agree with the above plan. Plan discussed with: Patient, Other (patient brother and ER physician) Visit Coding Surgery Date of Service if different f: Oct 14, 2024 Billing Provider: ALEXSANDER SHARIF Surgery Visit Codes: 92396 - INP CONSULT <55 MIN ALEXSANDER SHARIF Oct 14, 2024 19:17
[2024-10-15] VITALS (55 sets, daily range): BP systolic 86–134; BP diastolic 40–63; PULSE 66–81; RESP 11–24; TEMP 97.8–98.6; O2SAT 90–100
[2024-10-15 03:25] LABS: Basophils # (auto) 0 10 ^3/uL (0-0.2); Basophils % (auto) 0.2 % (0.0-2.0); Eosinophils # (auto) 0 10 ^3/uL (0-0.8); Eosinophils % (auto) 0.1 % (0.0-7.0); Hematocrit 26.7 % (41.0-53.0); Hemoglobin 9.2 g/dL (13.5-17.5); Lymphocytes # (auto) 0.6 10 ^3/uL (0.4-5.4); Lymphocytes % (auto) 10.9 % (10.0-50.0); Mean Corpuscular Hemoglobin 31.9 pg (28.0-32.0); Mean Corpuscular Hgb Conc. 34.6 g/dL (32.0-36.0); Mean Corpuscular Volume 92.2 fL (80.0-100.0); Monocytes # (auto) 0.8 10 ^3/uL (0-1.3); Monocytes % (auto) 14.9 % (0.0-12.0); Neutrophils % (auto) 73.9 % (37.0-80.0); Nucleated Red Blood Cells % 0.1 %; Platelet Count (auto) 81 10^3/uL (140-450); Red Cell Distribution Width 16.1 % (11.8-14.3); White Blood Cell 5.4 10^3/uL (4.4-10.8)
[2024-10-15 03:39] LABS: Albumin 3.4 g/dL (3.2-4.8); Alkaline Phosphatase 62 U/L (46-116); Anion Gap 36 (5-15); Aspartate Aminotransferase 13 U/L (<34); BUN/Creatinine Ratio 9.1 (10.0-20.0); Bilirubin, Total 0.4 mg/dL (0.2-1.0)
[2024-10-15 03:54] LABS: Blood Urea Nitrogen 64 mg/dL (9-23); Carbon Dioxide 12 mmol/L (20-31); Chloride 98 mmol/L (98-107); Glucose 128 mg/dL (74-106); Sodium 146 mmol/L (136-145)
[2024-10-15 03:55] LABS: Alanine Aminotransferase < 9 U/L (7-40); Calcium 7.8 mg/dL (8.7-10.4); Total Protein 5.7 g/dL (5.7-8.2)
--- NOTE | 2024-10-15 05:43 | DVH ---
EXAM: XR Chest, 1 View CLINICAL INDICATION: cad TECHNIQUE: Frontal view of the chest. COMPARISON: No relevant prior studies available. FINDINGS: LUNGS AND PLEURAL SPACES: Pulmonary venous congestion. HEART: Unremarkable. No cardiomegaly. MEDIASTINUM: Unremarkable. Normal mediastinal contour. BONES/JOINTS: Unremarkable. No acute fracture. TUBES, LINES AND DEVICES: Right-sided Mediport with the distal tip in the SVC. No pneumothorax. Le ft internal jugular central venous catheter tip in the superior vena cava. OTHER FINDINGS: Comparison XY CHEST PORTABLE on DOS: 07/31/24, XY CHEST XRAY 1 VIEW on DOS: 05/13/24. IMPRESSION: Pulmonary venous congestion. HS:Y
[2024-10-15 08:07] LABS: Complement C3 92 mg/dL (82-167)
--- NOTE | 2024-10-15 09:39 | DVHDS2 ---
Discharge Summary Date of Admission Oct 13, 2024 at 23:00 Date of Discharge: Oct 15, 2024 Labs/Diagnostic Data: Laboratory Results Test 10/15/24 07:59 10/15/24 02:38 10/14/24 12:15 10/14/24 11:20 POC Glucose 143 mg/dl (70-106) White Blood Count 5.4 10^3/uL (4.4-10.8) Red Blood Count 2.90 10^6/uL (4.5-5.90) Hemoglobin 9.2 g/dL (13.5-17.5) Hematocrit 26.7 % (41.0-53.0) Mean Corpuscular Volume 92.2 fL (80.0-100.0) Mean Corpuscular Hemoglobin 31.9 pg (28.0-32.0) Mean Corpuscular Hemoglobin Concent 34.6 g/dL (32.0-36.0) Red Cell Distribution Width 16.1 % (11.8-14.3) Platelet Count 81 10^3/uL (140-450) Mean Platelet Volume 9.0 fL (6.9-10.8) Neutrophils (%) (Auto) 73.9 % (37.0-80.0) Lymphocytes (%) (Auto) 10.9 % (10.0-50.0) Monocytes (%) (Auto) 14.9 % (0.0-12.0) Eosinophils (%) (Auto) 0.1 % (0.0-7.0) Basophils (%) (Auto) 0.2 % (0.0-2.0) Neutrophils # (Auto) 4.0 10 ^3/uL (1.6-8.6) Lymphocytes # (Auto) 0.6 10 ^3/uL (0.4-5.4) Monocytes # (Auto) 0.8 10 ^3/uL (0-1.3) Eosinophils # (Auto) 0 10 ^3/uL (0-0.8) Basophils # (Auto) 0 10 ^3/uL (0-0.2) Nucleated Red Blood Cells 0.1 % Sodium Level 146 mmol/L (136-145) Potassium Level 4.0 mmol/L (3.5-5.1) Chloride Level 98 mmol/L (98-107) Carbon Dioxide Level 12 mmol/L (20-31) Anion Gap 36 (5-15) Blood Urea Nitrogen 64 mg/dL (9-23) Creatinine 7.03 mg/dL (0.700-1.30) Glomerular Filtration Rate Calc 8 mL/min (>90) BUN/Creatinine Ratio 9.1 (10.0-20.0) Serum Glucose 128 mg/dL (74-106) Calcium Level 7.8 mg/dL (8.7-10.4) Total Bilirubin 0.4 mg/dL (0.2-1.0) Aspartate Amino Transferase (AST) 13 U/L (<34) Alanine Aminotransferase (ALT) < 9 U/L (7-40) Alkaline Phosphatase 62 U/L (46-116) Total Protein 5.7 g/dL (5.7-8.2) Albumin 3.4 g/dL (3.2-4.8) Urine Color Light-brown (Yellow) Urine Clarity Ex.turbid (Clear) Urine pH 5.5 (5.0-9.0) Urine Specific [place] 1.008 (1.001-1.035) Urine Protein 1+ (Negative) Urine Ketones 1+ (Negative) Urine Blood 2+ /uL (Negative) Urine Nitrite Negative (Negative) Urine Bilirubin Negative (Negative) Urine Urobilinogen Normal mg/dL (Negative) Urine Leukocyte Esterase 3+ /uL (Negative) Urine RBC 18 /hpf (0 - 3) Urine WBC Clumps Present /hpf (None Seen) Urine Microscopic WBC 2539 /HPF (0-3) Urine Squamous Epithelial Cells Few /hpf (<5) Urine Bacteria Many /hpf (None Seen) Urine Mucus Few (None Seen) Urine Creatinine 29.32 mg/dL (30.0-125.0) Urine Protein/Creatinine Ratio 5.65 Urine Sodium 114 mmol/L (40-220) Urine Glucose 2+ mg/dL (Normal) Urine Total Protein 165.8 mg/dL (1-14) Urine Opiates Screen Neg (NEGATIVE) Urine Fentanyl Screen Neg (NEGATIVE) Urine Barbiturates Screen Neg (NEGATIVE) Urine Phencyclidine Screen Neg (NEGATIVE) Urine Amphetamines Screen Neg (NEGATIVE) Urine Benzodiazepines Screen Neg (NEGATIVE) Urine Cocaine Screen Neg (NEGATIVE) Urine Cannabinoids Screen Neg (NEGATIVE) Blood Gas Specimen Type Venous Blood Gas Sample Site Vbg - n/a Blood Gas Patient Temperature 37.0 Arterial Blood Date Drawn [id number] Jax Test N/a Venous Blood pH 6.924 (7.320-7.430) Venous Blood pCO2 at Patient Temp 16.2 mmHg (38.0-54.0) Venous Blood pO2 at Patient Temp 68.2 mmHg (23.0-48.0) Venous Blood HCO3 3.3 mmol/L (22.0-29.0) Venous Blood Base Excess -28.0 mmol/L (-2.0-3.0) Blood Gas Modality Room air FiO2 % 21.0 Blood Gas Critical Value Read Back Yes Blood Gas Notified Whom francis Richards Blood Gas Notified Time [id number] Blood Gas 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 [employer] 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 adi Rosario 10/14/24 08:56 10/14/24 08:15 10/14/24 05:20 10/14/24 01:30 Arterial Blood pH 6.863 (7.350-7.450) Arterial Blood Partial Pressure CO2 < 14.1 mmHg (35.0-48.0) Arterial Blood Partial Pressure O2 146.3 mmHg (83.0-108.0) Arterial Blood Oxygen Saturation 97.9 % (94.0-98.0) Arterial Blood Oxyhemoglobin 96.8 % (94.0-98.0) Arterial Blood Carboxyhemoglobin 0.3 % (0.5-1.5) Arterial Blood Methemoglobin 0.8 % (0.0-1.5) Blood Gas Total Hemoglobin 11.00 g/dL (13.5-17.5) Hemoglobin A1c 5.5 % A1C (<5.7) Vitamin D 25-Hydroxy 31.0 ng/mL (30.0-100) Parathyroid Hormone (Intact) 42.3 pg/mL (18.4-80.1) Complement C3 92 mg/dL (82-167) Complement C4 29 mg/dL (12-38) Hepatitis B Surface Antigen Negative (Negative) Creatine Kinase 54 U/L (46-171) Venous Bld O2 Saturation (Measured) 87.9 % (60.0-85.0) Venous Blood Total Hemoglobin 11.5 g/dL (13.5-17.5) Venous Blood Oxyhemoglobin 87.2 % (0.0-79.0) Venous Blood Carboxyhemoglobin 0.2 % (0.5-1.5) Venous Blood Methemoglobin 0.6 % (0.0-1.5) Test 10/14/24 01:20 10/14/24 01:00 10/13/24 18:50 10/13/24 16:24 Prothrombin Time 10.7 sec (9.3-11.8) Prothrombin Time INR 1.01 (0.9-1.15) Activated Partial Thromboplast Time 34.8 SEC (24.5-34.5) Lactic Acid Level 7.5 mmol/L (0.4-2.0) Uric Acid 10.6 mg/dL (3.7-9.2) Phosphorus Level 5.6 mg/dL (2.4-5.1) Magnesium Level 1.5 mg/dL (1.6-2.6) Influenza Type A Antigen Negative (Negative) Influenza Type B Antigen Negative (Negative) SARS-CoV-2 Antigen (Rapid) Negative (NEGATIVE) Direct Bilirubin 0.3 mg/dL (<0.3) Troponin I High Sensitivity 20 ng/L (</=54) Lipase 24 U/L (12-53) B-Type Natriuretic Peptide 127.31 pg/mL (0-100) Other Laboratory Tests 10/15/24 02:38 Brief Hx & Hospital Course: see dictated note Condition at Discharge: Guarded Final Diagnosis/Problems List renal failure Discharge Disposition: Hospice - Home Discharge Instruct/Medications Diet: Renal Activity: No Restrictions, As Tolerated Follow Up/Referral: fu with hospice Medications: per hospice leave luu in Discharge Statement: "Patient was advised to return to the ER or call 911 if any headaches, dizziness, shortness of breath, chest pain, abdominal pain, bleeding, fevers, or worsening of medical condition. Patient was counseled about treatment plan, medications, possible side effects, patientverbalized understanding. All questions were answered to the best of my ability. This discharge took greater then 30 minutes in planning, reviewing documentation, counseling the patient, and discussing with other team members." ASSESSMENT ASSESSMENT Assessment renal failure Date of Service: Oct 15, 2024 Billing Provider: GISELLE PALOMARES MD Common Visit Codes: 76841-XRF/OBS DISCH DAY >30min GISELLE PALOMARES MD Oct 15, 2024 09:39
--- NOTE | 2024-10-15 09:52 | DVHDS ---
DATE OF DISCHARGE: 10/15/2024 HISTORY OF PRESENT ILLNESS: The patient is a 69-year-old gentleman who was admitted with history of generalized weakness, cough, diarrhea, and loss of appetite. The patient has history of metastatic renal cell cancer, diabetes, hypertension, and kidney disease. HOSPITAL COURSE: The patient was noted to be in shock. CT of the abdomen and pelvis showed evidence of mild gallbladder distention with cholelithiasis. The patient had gastric distention with a recent fracture of the right femoral head and neck along with possible ileus versus bowel obstruction. The patient's creatinine was elevated and he had severe metabolic acidosis. The patient was seen in Nephrology consult by Dr. Vyas, an Orthopedics consult by Dr. Tavares. The patient had blood cultures that were negative. I had a long discussion with the patient and his brother, Hiram, and at this point they wish him to be discharged under hospice. The patient will be discharged under hospice with medications as per hospice. FINAL DIAGNOSES: * Septic shock. * Likely acute cholecystitis with cholelithiasis. * [id number] renal failure. * Metastatic renal cancer status post left nephrectomy. * Diabetes mellitus. * Thrombocytopenia. * Anemia. * Status post right hip fracture. * Severe metabolic acidosis. * DNR/hospice care. Time spent on discharge planning, review of plan with the patient, family, and nursing was 39 minutes. MD MANA Gomez/RAIMUNDO TID: [id number] RECEIPT: [id number]
[2024-10-15] MEDS: PANTOPRAZOLE 40 MG/10 ML VIAL INJ IV SCH (10:14)
--- NOTE | 2024-10-15 11:33 | DVHPN2 ---
Progress Note Date Seen: Oct 15, 2024 Medical Necessity Reason Pt with a Central, PICC or Fol: Yes The following are medically ne: Central Line, Luu Catheter Reason for luu catheter: Strict I&O Subjective Patient reports: No new complaints Review of Systems: NEURO:Abnormal Other Systems: Patient seen and examined by myself today in follow-up Objective vital signs Vital Sign Date Time Temp Pulse Resp B/P (MAP) Pulse Ox O2 Delivery O2 Flow Rate FiO2 10/15/24 10:45 69 16 107/54 (71) 96 10/15/24 10:00 Room Air* 0 21 10/15/24 08:00 98.2 98.2 Total Intake and Output 10/14/24 10/14/24 10/15/24 15:00 23:00 07:00 Intake Total 1651.875 ml 1401.905 ml 205.00 ml Output Total 180 ml 150 ml Balance 1651.875 ml 1221.905 ml 55.00 ml medications Current Medications Medications Dose Ordered Sig/Jessica Route Start Time Stop Time Status Last Admin Dose Admin Diagnostic Test (Pha) 1 strip IQ4HR 10/14/24 00:00 10/15/24 08:07 1 STRIP Insulin Human Regular IQ4HR SC 10/14/24 00:00 10/15/24 08:11 2 UNITS Dextrose 50 ml UD PRN IV 10/13/24 23:30 Ondansetron HCl 4 mg Q4HPRN PRN IV 10/14/24 00:15 10/14/24 02:09 4 MG Piperacillin Sod/ Tazobactam Sod 100 ml @ 25 mls/hr Q12H IV 10/14/24 16:00 10/15/24 03:48 25 MLS/HR Pantoprazole Sodium 40 mg DAILY IV 10/15/24 10:00 10/15/24 10:14 40 MG Norepinephrine Bitartrate 250 ml @ 1.875 mls/ hr Q24H IV 10/14/24 10:00 10/14/24 10:00 1.875 MLS/HR Acetaminophen 650 mg Q6HP PRN PO 10/14/24 18:45 10/14/24 18:56 650 MG Examination: LUNGS:Normal, CVS:Normal, MSK:Abnormal laboratory and microbiology Laboratory Tests 10/15/24 02:38 Test 10/15/24 02:38 Range/Units Serum Glucose 128 H 74-106 mg/dL Microbiology Date/Time Source Procedure Growth Status 10/14/24 12:15 Voided Urine Urine Culture - Preliminary Resulted 10/13/24 18:50 Blood Blood Culture - Preliminary NO GROWTH AFTER 24 HOURS OF INCUBATION. Resulted Problem List/Assessment/Plan Problem List/Assessment/Plan Acute kidney injury superimposed Chronic Kidney Disease secondary hemodynamic mediated ATN, FeNa > 2% Septic shock Acute cholecystitis Metabolic acidosis Hypomagnesemia Diabetes mellitus type 2 History of left nephrectomy Metastatic renal cell carcinoma Anemia of chronic kidney disease Recommendations Kidney function continue to worsen Patient remained oliguric Luu catheter Strict I&Os Right kidney reported within normal limit on ultrasound Primary team and the family decided for withdrawal of care and to sedt patient home on hospice I will sign off this case, please reconsult as needed Thank you for the consult Plan discussed with: Patient, Other (Brothers, Nurse) ALONSO HOOPER MD Oct 15, 2024 11:33
--- NOTE | 2024-10-15 12:01 | DVHPN2 ---
Progress Note Date Seen: Oct 15, 2024 Medical Necessity Reason Pt with a Central, PICC or Fol: Yes The following are medically ne: Central Line, Luu Catheter Reason for luu catheter: Strict I&O Objective vital signs Vital Sign Date Time Temp Pulse Resp B/P (MAP) Pulse Ox O2 Delivery O2 Flow Rate FiO2 10/15/24 10:45 69 16 107/54 (71) 96 10/15/24 10:00 Room Air* 0 21 10/15/24 08:00 98.2 98.2 Total Intake and Output 10/14/24 10/14/24 10/15/24 15:00 23:00 07:00 Intake Total 1651.875 ml 1401.905 ml 205.00 ml Output Total 180 ml 150 ml Balance 1651.875 ml 1221.905 ml 55.00 ml medications Current Medications Medications Dose Ordered Sig/Jessica Route Start Time Stop Time Status Last Admin Dose Admin Diagnostic Test (Pha) 1 strip IQ4HR 10/14/24 00:00 10/15/24 08:07 1 STRIP Insulin Human Regular IQ4HR SC 10/14/24 00:00 10/15/24 08:11 2 UNITS Dextrose 50 ml UD PRN IV 10/13/24 23:30 Ondansetron HCl 4 mg Q4HPRN PRN IV 10/14/24 00:15 10/14/24 02:09 4 MG Piperacillin Sod/ Tazobactam Sod 100 ml @ 25 mls/hr Q12H IV 10/14/24 16:00 10/15/24 03:48 25 MLS/HR Pantoprazole Sodium 40 mg DAILY IV 10/15/24 10:00 10/15/24 10:14 40 MG Norepinephrine Bitartrate 250 ml @ 1.875 mls/ hr Q24H IV 10/14/24 10:00 10/14/24 10:00 1.875 MLS/HR Acetaminophen 650 mg Q6HP PRN PO 10/14/24 18:45 10/14/24 18:56 650 MG laboratory and microbiology Laboratory Tests 10/15/24 02:38 Test 10/15/24 02:38 Range/Units Serum Glucose 128 H 74-106 mg/dL Problem List/Assessment/Plan Problem List/Assessment/Plan 10/15/24 Patient being discharged, abdomen non tender. Plan discussed with: Patient, Other ARISTIDES PEARL MD Oct 15, 2024 12:01
== END 2024-10-15 17:52 | disposition hospice, home (50) | DRG 871 ==
LOC: EDBD 16:04 → ER 16:18 → OVERFLOW 23:00 → EDUNIT# 23:00 → ICU WEST 10-14 23:46
PROVIDERS: ADMIT Internal Medicine; ATTEND Internal Medicine
PROC: 02HV33Z Insertion of Infusion Device into Superior Vena Cava, Percutaneous Approach (ICD-10-PCS; principal; 2024-10-14)
DX: A41.9 Sepsis, unspecified organism (principal); R65.21 Severe sepsis with septic shock; E87.20 Acidosis, unspecified; K80.00 Calculus of gallbladder with acute cholecystitis without obstruction; N17.9 Acute kidney failure, unspecified; Z20.822 Contact with and (suspected) exposure to COVID-19; N18.9 Chronic kidney disease, unspecified; D63.1 Anemia in chronic kidney disease; E83.42 Hypomagnesemia; E87.5 Hyperkalemia; D69.6 Thrombocytopenia, unspecified; E11.22 Type 2 diabetes mellitus with diabetic chronic kidney disease; N40.0 Benign prostatic hyperplasia without lower urinary tract symptoms; I12.9 Hypertensive chronic kidney disease with stage 1 through stage 4 chronic kidney disease, or unspecified chronic kidney disease; Z66 Do not resuscitate; Z51.5 Encounter for palliative care; Z90.5 Acquired absence of kidney; Z85.528 Personal history of other malignant neoplasm of kidney; Z79.899 Other long term (current) drug therapy
CPT/HCPCS: 36415; 36600; 71045; 72170; 74176; 76705; 76857; 80048; 80053; 80076; 80307; 81001; 82306; 82550; 82570; 82805; 82962; 83036; 83605; 83690; 83735; 83880; 83970; 84100; 84156; 84300; 84484; 84550; 85025; 85610; 85730; 86160; 86850; 86870; 86900; 86901; 87040; 87081; 87086; 87340; 87426; 87804; 93970; 94640; 96365; 99291; G0378; J1815; J2405; J2470; J2543; J3490